=== PATIENT | female | born 1935 | race Caucasian/White ===

== ENCOUNTER → 2017-04-04 13:44 | Outpatient (POV) | payer MEDICARE, BC, SELFPAY | PROVIDERS: PCP Family Medicine | DX: Z00.00 Encounter for general adult medical examination without abnormal findings (principal) ==

== ENCOUNTER → 2017-12-06 14:03 | Outpatient (CLI) | payer MEDICARE, BC, SELFPAY ==
--- NOTE | 2017-12-06 14:14 | MR_ITS ---
MR shoulder RT wo con HISTORY: Acute pain in right shoulder with limited range of motion ORDERING PHYSICIAN: Madiha Apodaca PATIENT AGE: 82 years TECHNIQUE: Multiplanar multiecho sequences are performed without contrast. FINDINGS: There is mild acromioclavicular arthropathy with mild edema at the acromioclavicular joint with hypertrophic changes. The hypertrophic changes are mainly superior. There is mild thickening of the supraspinatus and infraspinatus tendons with slight increase in T2 signal consistent with tendinopathy/tendinosis. No evidence of rotator cuff tear. There is tendinopathy/tendinosis of the subscapularis tendon as well. Teres minor tendon is intact. No obvious labral tear. Subcortical edematous change involves the humeral head toward the base of the greater trochanter with mild cortical irregularity of the greater trochanter. Small shoulder joint effusion. The bicipital tendon is in place. No fracture or dislocation. IMPRESSION: 1. Tendinopathy/tendinosis of the supraspinatus and infraspinatus tendon. No evidence of rotator cuff tear. 2. Mild amount of marrow edema involving the humeral head subcortical irregularity of the greater tuberosity consistent with underlying degenerative changes. 3. Acromioclavicular arthropathy
== END ==
PROVIDERS: PCP Family Medicine; Visit Provider Family Medicine
DX: M25.511 Pain in right shoulder (principal)
CPT/HCPCS: 73221

== ENCOUNTER 2017-12-11 13:00 | Outpatient (RCR) | payer MEDICARE, BC, SELFPAY | END 2017-12-11 13:01 | disposition home or self-care (01) | LOC: OT 13:00 | PROVIDERS: PCP Family Medicine; Visit Provider Plastic Surgery Surgery of the Hand | DX: S52.501A Unspecified fracture of the lower end of right radius, initial encounter for closed fracture (principal) | CPT/HCPCS: 97110; 97140; 97164; 97165; 97530 ==

== ENCOUNTER 2017-12-25 13:00 | Outpatient (RCR) | payer MEDICARE, BC, SELFPAY | END 2017-12-25 13:05 | disposition home or self-care (01) | LOC: OT 13:00 | PROVIDERS: PCP Family Medicine; Visit Provider Family Medicine | DX: M25.511 Pain in right shoulder (principal); M81.0 Age-related osteoporosis without current pathological fracture | CPT/HCPCS: 97014; 97035; 97110; 97140; 97165; G0283 ==

== ENCOUNTER → 2018-03-20 15:38 | Outpatient (POV) | payer MEDICARE, BC, SELFPAY | DX: Z00.00 Encounter for general adult medical examination without abnormal findings (principal) ==

== ENCOUNTER → 2018-04-04 14:23 | Outpatient (CLI) | payer MEDICARE, BC, SELFPAY ==
--- NOTE | 2018-04-04 | CA_ITS ---
PROCEDURE: 2-D M-mode and color Doppler study INDICATIONS FOR THE TEST: Chest pain COPD Heart Murmur Tobacco Smoking Palpitations Fatigue Syncope Edema+ Hypertension+Diabetes Mellitus Rheumatic Fever SOB+CONTRERAS Obesity Hyperlipidemia Family History HD Additional History stents PATIENT INFORMATION HEIGHT: 66 WEIGHT:132 GENDER: Female B/P:145/95 2-D/M-MODE INTERPRETATION: 2-D MEASUREMENTS OBSERVED VALUES IN CMS Right Ventricular Dimension (RVDd) MINDY Interventricular Septum (Thickness)(IVsd) 1.2 Left Ventricular Internal Dimensions(LVIDd) 3.8 Left Ventricular Posterior Wall (Thickness)(LVPWd) 0.6 Aortic Root 2.4 Aortic Cusp Separation 1.9 Left Atrial Dimensions (LAD) 3.6 2D 1. Left atrium is mildly enlarged, left ventricle is normal size, mild concentric left ventricular hypertrophy, visually estimated ejection fraction 55% with no regional wall motion abnormality. 2. The right atrium is mildly enlarged, left ventricle is mildly dilated and contractility. 3. The aortic valve is thickened and calcified leaflet continue to display mobility. 4. The mitral valve has mitral calcification, leaflets are minimally thickened, there is mild systolic anterior motion of the mitral valve leaflets. 5. The tricuspid valve is grossly normal. 6. The pulmonic valve is poorly visualized. 7. No significant pericardial effusion noted. DOPPLER INTERROGATION: 1. There is late peaking aortic out flow velocity of 2.5 m/s seen in the left ventricular outflow tract, resulting in a peak instantaneous gradient of 25 mmHg, suggestive of dynamic obstruction. Morphologically there is no aortic stenosis. There is no aortic insufficiency present. 2. The mitral inflow velocities within normal range, there is no mitral stenosis, there is mild mitral regurgitation, grade 1 diastolic dysfunction seen without tissue Doppler evidence of raised left atrial pressure. 3. Mild tricuspid regurgitation seen. Calculated right ventricular systolic pressure is 52 mmHg consistent with moderate pulmonary hypertension.. CONCLUSION: 1. Mild biatrial enlargement, normal left ventricular size, mild concentric left ventricular hypertrophy, visually estimated ejection fraction 55% with no regional wall motion abnormality, grade 1 diastolic dysfunction seen without tissue Doppler evidence of raised left atrial pressure. 2. Late peaking increased velocity seen in the left ventricular outflow tract up to 0.5 m/s, resulting in a peak instantaneous gradient of 25 mmHg suggestive of dynamic left ventricular outflow track obs
== END ==
PROVIDERS: PCP Family Medicine; Visit Provider Family Medicine
DX: I25.10 Atherosclerotic heart disease of native coronary artery without angina pectoris (principal); R60.9 Edema, unspecified
CPT/HCPCS: 93306

== ENCOUNTER → 2018-05-01 15:28 | Outpatient (POV) | payer MEDICARE, BC, SELFPAY | DX: Z00.00 Encounter for general adult medical examination without abnormal findings (principal) ==

== ENCOUNTER 2018-05-17 07:44 | Day surgery (SDC) | payer MEDICARE, BC, SELFPAY ==
[2018-05-17] VITALS (12 sets, daily range): BP systolic 131–164; BP diastolic 65–96; PULSE 54–67; RESP 16–20; TEMP 37.1; O2SAT 96–97; BMI 24.1
[2018-05-17 08:26] LABS: Basophils % 0.6 % (0.1-2.0); Eosinophils # 0.2 K/mm3 (0.0-0.4); Eosinophils % 5.4 % (0.1-12.0); Hematocrit 39.2 % (37.0-47.0); Hemoglobin 12.8 g/dL (12.2-16.2); Lymphocytes # 0.8 K/mm3 (0.7-4.5); Lymphocytes % 26.6 % (10-50); Mean Corpuscular HGB Conc 32.8 g/dL (31.8-35.4); Mean Corpuscular Volume 100.7 fl (81-99); Mean Platelet Volume 7.9 fl (7.4-10.4); Monocytes # 0.3 K/mm3 (0.1-1.0); Monocytes % 9.3 % (1.7-9.3); Neutrophils # 1.8 K/mm3 (1.8-7.8); Neutrophils % 58.1 % (37.0-80.0); Platelet Count 171 K/mm3 (142-424); Red Blood Count 3.89 M/mm3 (4.20-5.40); Red Cell Distribution Width 13.3 % (11.5-17.5); White Blood Count 3.1 K/mm3 (4.8-10.8)
[2018-05-17 08:33] LABS: Blood Urea Nitrogen 18 mg/dL (7-18); Calcium 9.8 mg/dL (8.5-10.1); Carbon Dioxide 26 mmol/L (21.0-32.0); Chloride 106 mmol/L (98-107); Creatinine Clearance Estimated 47 mL/min (50-200); Creatinine,Serum 0.84 mg/dL (0.55-1.02); Estimated Glomerular Filt Rate 65 ml/min (>60); GFR (African American) 79 ML/MIN (>60); Glucose 94 mg/dL (74-106); Sodium 143 mmol/L (136-145)
--- NOTE | 2018-05-17 12:00 | IR_ITS ---
CARDIAC CATHETERIZATION DATE OF CATHETERIZATION:05/17/2018 10:32 AM PROCEDURES: 1. Left heart catheterization 2. Left ventriculogram 3. Selective coronary angiogram INDICATION FOR TEST: 1. Known coronary artery disease 2. Class III angina pectoris 3. Hyperdynamic ventricle with dynamic outflow obstruction Informed consent was obtained prior to the procedure. COMPLICATIONS: None ESTIMATED BLOOD LOSS: Less than 10 ml. TECHNIQUE: One percent lidocaine used to anesthetize the right anterior aspect of the wrist. The right radial artery was accessed via the Seldinger technique. A 6 Macedonian sheath was placed in the right radial artery. 2.5 mg of verapamil, 800 mcg of nitroglycerin, 1mg Lidocaine and 5000 U Heparin were given through the arterial sheath. The trap catheter was also used to perform left heart catheterization, left ventriculogram and selective coronary angiogram. At the end of the procedure the sheath was removed good hemostasis was achieved using Traclet band, patient was transferred to the postop holding area in stable condition . ANGIOGRAPHIC RESULTS: 1. The left main artery normal 2. The left anterior descending artery has a stent in the proximal segment which is widely patent free of in-stent restenosis with excellent proximal and distal transitioning. Distal to the stent is a 30% stenosis. The mid LAD then has a drug-eluting stent which has a 30-40% concentric in-stent restenotic lesion in the distal portion of the stent. Distal to the stent there is excellent transitioning into the tetlin LAD. The remaining LAD is tortuous widely patent with no significant stenosis greater than 10% 3. The circumflex artery is a nondominant vessel extremely tortuous giving multiple small branches with no focal stenosis greater than 10-20% 4. The right coronary artery is a dominant vessel very tortuous with no focal stenosis. 5. The WOOD ventriculogram reveals hyperdynamic ventricle estimated at 80% 6. The left ventricular end-diastolic pressure 20 to 25 mmHg IMPRESSION: 1. Widely patent proximal and mid LAD stents as described above with diffuse mild to moderate LAD disease none of which is producing angina 2. Very hyperdynamic ventricle with elevated LVEDP 3. No catheter-based aortic outflow or left ventricular outflow dynamic gradient appreciated on pullback PLAN: 1. Medical management. Patient will be started on high-dose beta blockers and verapamil to decrease hyperdynamic state 2. Judicious use of diuretics 3. Continue medical management for stable ischemic heart disease
== END 2018-05-17 13:41 | disposition home or self-care (01) ==
PROVIDERS: PCP Family Medicine; Visit Provider Internal Medicine
DX: I25.118 Atherosclerotic heart disease of native coronary artery with other forms of angina pectoris (principal); I42.1 Obstructive hypertrophic cardiomyopathy; I11.0 Hypertensive heart disease with heart failure; I50.30 Unspecified diastolic (congestive) heart failure; I34.0 Nonrheumatic mitral (valve) insufficiency; I27.20 Pulmonary hypertension, unspecified; Z95.5 Presence of coronary angioplasty implant and graft; E78.5 Hyperlipidemia, unspecified; Z82.49 Family history of ischemic heart disease and other diseases of the circulatory system; Z79.82 Long term (current) use of aspirin; Z79.899 Other long term (current) drug therapy; Z88.0 Allergy status to penicillin; Z88.2 Allergy status to sulfonamides; Z88.5 Allergy status to narcotic agent; Z88.8 Allergy status to other drugs, medicaments and biological substances
CPT/HCPCS: 80048; 85025; 93458; 99152; C1725; C1769; J1644; Q9967

== ENCOUNTER → 2018-05-22 14:39 | Outpatient (POV) | payer MEDICARE, BC, SELFPAY | DX: Z00.00 Encounter for general adult medical examination without abnormal findings (principal) ==

== ENCOUNTER → 2018-06-19 12:30 | Outpatient (POV) | payer MEDICARE, BC, SELFPAY | DX: Z00.00 Encounter for general adult medical examination without abnormal findings (principal) ==

== ENCOUNTER → 2018-07-17 13:56 | Outpatient (POV) | payer MEDICARE, BC, SELFPAY | DX: Z00.00 Encounter for general adult medical examination without abnormal findings (principal) ==

== ENCOUNTER → 2018-10-30 13:13 | Outpatient (POV) | payer MEDICARE, BC, SELFPAY | DX: Z00.00 Encounter for general adult medical examination without abnormal findings (principal) ==

== ENCOUNTER → 2019-01-15 13:15 | Outpatient (POV) | payer MEDICARE, BC, SELFPAY | DX: Z00.00 Encounter for general adult medical examination without abnormal findings (principal) ==

== ENCOUNTER → 2019-04-17 06:26 | Outpatient (CLI) | payer MEDICARE, BC, SELFPAY ==
--- NOTE | 2019-04-17 06:28 | NM_ITS ---
APPROVED REPORT Exam: Nuclear Stress Test Indication: chest pain..short of breath..palpitation..fatigue Patient Location: Outpatient Stress Tech: Ileana Kelechi NE Tech:Jerri BoudreauxHÉCTOR RT(R)(N) Ht: 5 ft 4 in Wt: 138 lbs Bra Size: 34c HR: 64 bpm BP: 201/79 mmHg BSA: 1.67 m2 BMI: 23.6 History: chest pain..short of breath..palpitation..fatigue Procedure: Patient received a 0.4 mg of intravenous Lexiscan, resting heart rate 64 bpm, resting blood pressure 201/79 mmHg, with Lexiscan maximum heart rate achived was 81 bpm which is % of the maximum predicted heart rate and blood pressure was 205/73 mmHg. With Lexiscan, patient denied any complaint of chest pain. Cardiac Stress and Resting SPECT Images: Cardiac Stress and Resting SPECT images were obtained using technetium 99m Myoview 32.9 mCi stress and 10.69 mCi at rest. EF 67% Small fixed defect anterior wall No reversible defects Conclusion: EF 67% Small fixed defect anterior wall suggesting a small area of infarction No reversible defects Electronically signed by : Izaiah Cuevas MD 04/18/2019 16:08:33
--- NOTE | 2019-04-17 06:28 | CA_ITS ---
APPROVED REPORT Exam: Pharmacologic Technologist: ROOSEVELT MANCUSO, Ht: 5 ft 4 in Wt: 138 lbs BSA: 1.67 m2 HR: 64 bpm BP: 201/79 mmHg Indications: CP, SOA Medical History Medications: Metoprolol,,,,, Asa,,,,, Atorvastatin,,,,, Lasix,,,,, Famotidine,,,,, Preservision,,,,, Cardiac Risk Factors: HTN, Hyperlipidemia, FHX of CAD Stress Test Details Test: LEXISCAN HR Resting HR: 65 bpm Max Heart Rate (APMHR): 139 bpm Max HR Achieved: 85 bpm Target HR (85% APMHR): 118 bpm % of APMHR: 61 Recovery HR: 74 bpm BP Resting BP: 201/79 mmHg Max BP: 205/73 mmHg Recovery BP: 176.0/73.0 mmHg ECG Clinical Reason for Termination: Completed protocol Exercise duration: 04:01 min Highest Stage Achieved: Exercise capacity: 1.0 METs Stress ECG Conclusion Symptoms - Lightheaded, malaise, mild stomach discomfort. No chest pain. Ocassional PAC. No significant ST-T changes. Conclusion - Unremarkable Lexiscan stress. Myoview images reported separately. Test Summary RECOVERY 03:00 . . 75 . 168/ 74 . . REST 09:40 . . 65 . 201/ 79 . . Stage 1 01:00 . . 75 . . . . Stage 2 01:00 . . 84 . 205/ 73 . . Stage 3 01:00 . . 81 . 165/ 69 . . Stage 4 01:00 . . 76 . 170/ 75 . . Stage 4 01:01 . . 76 . 170/ 75 . Stop exercise at 04:01 RECOVERY 01:00 . . 75 . 167/ 74 . . RECOVERY 02:00 . . 77 . 167/ 74 . . RECOVERY 03:00 . . 75 . 168/ 74 . . RECOVERY 04:00 . . 73 . 176/ 73 . . RECOVERY 04:16 . . 71 . 176/ 73 . . Electronically signed by : Ankur Bateman, 04/17/2019 12:02:41
--- NOTE | 2019-04-17 07:11 | CA_ITS ---
APPROVED REPORT Branch Employment Coordinator: Yulissa Sarmiento RVT Laterality: Bilateral Study Quality: Good Indications: carotid bruit Risk Factors Hypertension: Hyperlipidemia Doppler Spectral Velocity Analysis ECA (R) 56.80/7.20 cm/s ECA (L) 59.70/6.10 cm/s dICA (R) 75.10/18.80 cm/s dICA (L) 85.70/22.20 cm/s Yoselyn (R) 86.00/18.00 cm/s Yoselyn (L) 50.50/14.50 cm/s pICA (R) 46.00/10.60 cm/s pICA (L) 32.10/9.20 cm/s dCCA (R) 68.10/12.40 cm/s dCCA (L) 65.30/10.30 cm/s pCCA (R) 109.00/11.50 cm/s pCCA (L) 72.20/15.00 cm/s Vert (R) 55.20/13.10 cm/s Vert (L) 38.30/8.40 cm/s ICA/CCA 1.26 ICA/CCA 1.31 Conclusion Study suggests less than 20% stenosis of the right internal cartoid artery. Study suggests 20-49% stenosis of the left internal cartoid artery. Antegrade flow seen bilateral vertebral arteries. Electronically signed by : Izaiah Cuevas MD 04/17/2019 16:55:44
[2019-04-17 07:22] LABS: Chloride 105 mmol/L (98-107); Potassium 4.3 mmoL/L (3.5-5.1); Sodium 139 mmol/L (136-145)
[2019-04-17 07:25] LABS: Anion Gap 11.3 mEq/L (5-15); Blood Urea Nitrogen 13 mg/dl (7-17); Calcium 9.7 mg/dl (8.4-10.2); Carbon Dioxide 27 mmol/L (22.0-30.0); Estimated Glomerular Filt Rate 80 ml/min (>60); GFR (African American) 97 ML/MIN (>60); Glucose 90 mg/dl (74-100)
--- NOTE | 2019-04-17 09:22 | HMH.ITSHM ---
Current Home Medications as stated by this patient Jenelle Mathur or represenasa metoprlol atorvastain famotidine lasix
== END ==
PROVIDERS: PCP Family Medicine; Visit Provider Nurse Practitioner Family
DX: E78.5 Hyperlipidemia, unspecified (principal); I11.9 Hypertensive heart disease without heart failure; I25.10 Atherosclerotic heart disease of native coronary artery without angina pectoris; I27.20 Pulmonary hypertension, unspecified; R53.83 Other fatigue; R60.9 Edema, unspecified; R09.89 Other specified symptoms and signs involving the circulatory and respiratory systems
CPT/HCPCS: 36415; 78452; 80048; 93017; 93306; 93880; A9502; J2785

== ENCOUNTER → 2019-08-13 12:47 | Outpatient (POV) | payer MEDICARE, BC, SELFPAY | DX: Z00.00 Encounter for general adult medical examination without abnormal findings (principal) ==

== ENCOUNTER → 2019-11-18 08:52 | Outpatient (POV) | payer MEDICARE, BC, SELFPAY | PROVIDERS: Visit Provider Dermatology | DX: Z00.00 Encounter for general adult medical examination without abnormal findings (principal) ==

== ENCOUNTER → 2019-12-17 15:34 | Outpatient (POV) | payer MEDICARE, BC, SELFPAY | DX: Z00.00 Encounter for general adult medical examination without abnormal findings (principal) ==

== ENCOUNTER → 2020-04-30 13:15 | Outpatient (CLI) | payer MEDICARE, BC, SELFPAY ==
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
== END ==
PROVIDERS: PCP Family Medicine; Visit Provider Urology
DX: I65.23 Occlusion and stenosis of bilateral carotid arteries (principal)
CPT/HCPCS: 93880

== ENCOUNTER → 2020-06-22 10:11 | Outpatient (POV) | payer MEDICARE, BC, SELFPAY | PROVIDERS: Visit Provider Dermatology | DX: Z00.00 Encounter for general adult medical examination without abnormal findings (principal) ==

== ENCOUNTER 2020-07-25 19:52 | Emergency (ER) | payer MEDICARE, BC, SELFPAY ==
[2020-07-25] VITALS (9 sets, daily range): BP systolic 175–219; BP diastolic 72–112; PULSE 59–78; RESP 17–18; TEMP 36.7–36.9; O2SAT 97–100; BMI 27.8
--- NOTE | 2020-07-25 20:02 | PC.NURSE ---
Trauma alert called.
--- NOTE | 2020-07-25 20:03 | PC.NURSE ---
FSBS 95
--- NOTE | 2020-07-25 20:05 | PC.NURSE ---
Trauma Alert cancelled.
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
[2020-07-25 20:38] LABS: Basophils % 0.6 % (0.1-2.0); Eosinophils # 0.3 K/mm3 (0.0-0.4); Eosinophils % 5.2 % (0.1-12.0); Hematocrit 36.6 % (37.0-47.0); Hemoglobin 11.3 g/dL (12.2-16.2); Lymphocytes # 1.3 K/mm3 (0.7-4.5); Lymphocytes % 25.6 % (10-50); Mean Corpuscular Hemoglobin 32.7 pg (27.0-31.2); Mean Corpuscular Volume 105.6 fl (81-99); Mean Platelet Volume 7.9 fl (7.4-10.4); Monocytes # 0.4 K/mm3 (0.1-1.0); Monocytes % 7.6 % (1.7-9.3); Neutrophils % 61.1 % (37.0-80.0); Platelet Count 217 K/mm3 (142-424); Red Blood Count 3.46 M/mm3 (4.20-5.40)
[2020-07-25 20:42] LABS: Alanine Aminotransferase 15 U/L (12-78); Albumin Level 4.4 g/dl (3.5-5.0); Albumin/Globulin Ratio 1.9 (1.1-1.8); Alkaline Phosphatase 92 U/L (38-126); Anion Gap 13.3 mEq/L (5-15); Aspartate Amino Transferase 29 U/L (14-36); Bilirubin,Total 0.4 mg/dl (0.2-1.3); Blood Urea Nitrogen 20 mg/dl (7-17); Calcium 9.7 mg/dl (8.4-10.2); Carbon Dioxide 24 mmol/L (22.0-30.0); Chloride 104 mmol/L (98-107); Creatinine Clearance Estimated 54 mL/min (50-200); Estimated Glomerular Filt Rate 60 ml/min (>60); GFR (African American) 72 ML/MIN (>60); Globulin 2.3 g/dL (1.3-3.2); Glucose 101 mg/dl (74-100); Potassium 4.3 mmoL/L (3.5-5.1); Sodium 137 mmol/L (136-145); Total Protein,Serum 6.7 g/dl (6.3-8.2)
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
--- NOTE | 2020-07-25 21:26 | PC.NURSE ---
pt's 18g RAC IV infiltrated. 2x more attempts made for IV replacement unsuccessfully.
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
[2020-07-26 07:31] LABS: POC Glucose,Bedside 95 (70-110)
== END 2020-07-25 23:58 | disposition home or self-care (01) ==
PROVIDERS: Emergency Provider Emergency Medicine; PCP Family Medicine
DX: S20.213A Contusion of bilateral front wall of thorax, initial encounter (principal); W23.1XXA Caught, crushed, jammed, or pinched between stationary objects, initial encounter; Y92.017 Garden or yard in single-family (private) house as the place of occurrence of the external cause; I25.10 Atherosclerotic heart disease of native coronary artery without angina pectoris; K21.9 Gastro-esophageal reflux disease without esophagitis; I10 Essential (primary) hypertension; E78.5 Hyperlipidemia, unspecified
CPT/HCPCS: 70450; 71045; 71250; 72125; 72170; 80053; 82962; 85025; 96372; 99281

== ENCOUNTER → 2020-11-04 11:54 | Outpatient (CLI) | payer MEDICARE, BC, SELFPAY ==
--- NOTE | 2020-11-04 11:54 | NM_ITS ---
APPROVED REPORT Exam: Nuclear Stress Test Indication: Chest pain, SOB, Palpitations, Fatigue, HTN, CAD, High cholesterol, Family history Patient Location: Outpatient Stress Tech: Pooja Smith [place] Tech:HÉCTOR Siegel RT(R)(N) Ht: 5 ft 5 in Wt: 134 lbs Bra Size: B HR: 58 bpm BP: 198/85 mmHg BSA: 1.67 m2 BMI: 22.2 History: Chest pain, SOB, Palpitations, Fatigue, HTN, CAD, High cholesterol, Family history Procedure: Patient received a 0.4 mg of intravenous Lexiscan, resting heart rate 58 bpm, resting blood pressure 198/85 mmHg, with Lexiscan maximum heart rate achived was 60 bpm which is Less than 85 % of the maximum predicted heart rate and blood pressure was 206/84 mmHg. With Lexiscan, patient denied any complaint of chest pain. Electrocardiogram Resting electrocardiogram showed sinus rhythm, with Lexiscan there is less than 1.[address] segment depression noted from the baseline EKG. The EKG portion of the Lexiscan is nondiagnostic. Cardiac Stress and Resting SPECT Images: Cardiac Stress and Resting SPECT images were obtained using technetium 99m Myoview 30.5 mCi stress and 10.75 mCi at rest. Gated SPECT for analysis of segmental wall motion and calculation of the ejection fraction also done. Prone images were also obtained. Cardiac stress and resting SPECT images show uniform myocardial activity without segmental perfusion abnormality, computer derived ejection fraction is 68% with no regional wall motion abnormality, right ventricle is normal size and contractility. Conclusion: 1. The EKG portion of the Lexiscan is nondiagnostic. 2. No scintigraphic evidence of reversible ischemia seen, computer derived ejection fraction is 68% with no regional wall motion abnormality, right ventricle is normal size and contractility. 3. Normal Lexiscan Myoview study. Electronically signed by : Matt Alarcon MD 11/04/2020 16:32:42
--- NOTE | 2020-11-04 12:36 | CA_ITS ---
APPROVED REPORT EXAM: Comprehensive 2D, Doppler, and color-flow Echocardiogram Ticket Worker: Kat Palacio, RCS, RVS Ht: 5 ft 4 in Wt: 132lbs BSA: 1.64 BP: 157/59 mmHg Indications: CP, SOA, HTN, Murmurs, PHTN, TR, PI, AI 2D Dimensions IVSd 0.91 cm LVEF (Visual) 52.50 % PWd 0.92 cm LA Volume 57.60 mL LVDd 3.89 cm LA Volume Index 35.10 mL/m2 (M/F) 16-34 LVDs 2.86 cm Aortic Root 1.18 cm Left Atrium 4.21 cm LVOT 1.90 cm (M/F) 1.5-2.5 M-Mode Dimensions LA Diam 4.61 cm (1.9-4.0) Ao Diam 3.42 cm (2.0-3.7) TAPSE 2.52 (<1.7) LV Diastology E Decel Time 330.00 (160-240 msec) E/A Ratio 0.63 MED E' 4.70 (< 7 cm/sec) MED A' 10.60 cm/s E'/MED E' Ratio 13.96 (>14) LAT E' 4.90 (<10 cm/sec) LAT A' 8.90 cm/s E/LAT E' Ratio 13.39 (>14) Aortic Valve LVOT Max 142.00 (70-110 cm/s) LVOT VTI 39.69 cm AoV Peak Marcel. 145.00 (50-130 cm/s) AI PHT 593.00 ms AO Peak GR. 8.40 mmHg AO Mean GR. 4.20 (<5 mmHg) AO VTI 37.44 (18-25 cm) NELLA (VTI) 3.01 (2.5-4.5 cm2) Mitral Valve MV A Velocity 105.00 (40-130 cm/s) E/A Ratio 0.63 MV Decel. Time 330.00 (160-240 ms) MV Mean Gr. 1.50 (<2mmHg) Pulmonary Valve KY End VMAX 213.00 cm/s Tricuspid Valve TR P. Velocity 309.00 cm/s RAP Estimate 10.00 mmHg RVSP 48.20 mmHg Left Ventricle Left atrium is mildly enlarged, left ventricle is normal size, mild concentric left ventricular hypertrophy, visually estimated ejection fraction 55% with no regional wall motion abnormality, grade 1 diastolic dysfunction seen without tissue Doppler evidence of raise left atrial pressure. Right Ventricle Right atrium and right ventricle are mildly enlarged with normal contractility. Aortic Valve Aortic valve is minimally thickened and fibrosed, there is no aortic stenosis, there is mild aortic insufficiency. Mitral Valve Mitral valve leaflets are minimally thickened, there is mild mitral regurgitation. Tricuspid Valve Tricuspid valve grossly normal, there is moderate tricuspid regurgitation, calculated right ventricular systolic pressure is 49 mmHg. Pulmonic Valve Pulmonic valve is minimally fibrosed, there is no pulmonic stenosis, there is mild pulmonic insufficiency. Great Vessels Aortic root is normal size. Inferior vena cava is normal size with normal inspiratory collapse. Pericardium No significant pericardial effusion noted. Conclusion 1. Mild biatrial enlargement, normal left ventricular size, mild concentric left ventricular hypertrophy, visually estimated ejection fraction 55% with no regional wall motion abnormality, grade 1 diastolic dysfunction seen without tissue Doppler evidence of raise left atrial pressure. 2. Mildly enlarged right ventricle with normal contractility. 3. Mild pulmonic, aortic, mitral and moderate tricuspid regurgitation. Calculated right ventricular systolic pressure is 49 mmHg. 4. No significant pericardial effusion noted. 5. Inferior vena cava is normal size with normal inspiratory collapse. Electronically signed by : Matt Alarcon MD 11/04/2020 16:40:42
--- NOTE | 2020-11-04 14:33 | CA_ITS ---
APPROVED REPORT Exam: Pharmacologic Technologist: Shira Farrell, Ht: 5 ft 4 in Wt: 132 lbs BSA: 1.64 m2 HR: 58 bpm BP: 198/85 mmHg Medical History Medications: Levothyroxine,,,,, Aspirin,,,,, Ferrous sulfate,,,,, Losartan,,,,, Lasix,,,,, Lipitor,,,,, Meclizine,,,,, PEPcid,,,,, Toprol XL,,,,, CyclobenAPRINE,,,,, Stress Test Details Test: LEXISCAN HR Resting HR: 58 bpm Max Heart Rate (APMHR): 137.172698 bpm Max HR Achieved: 65 bpm Target HR (85% APMHR): 116.976776 bpm % of APMHR: 47.45 Recovery HR: 55 bpm BP Resting BP: 198/85 mmHg Max BP: 206/84 mmHg Recovery BP: 200.0/80.0 mmHg ECG Resting ECG: Sinus bradycardia, diffuse non-diagnostic Q waves Clinical Exercise duration: 04:00 min Highest Stage Achieved: Stress ECG Conclusion Did not take her Losartan 100mg this AM. After consulting with Cardiology office--Irbesartan 75mg PO given post test. She will monitor her BP once she gets home and if it doesn't start to come down, return to ER. Symptoms: Mild SOA, Mild BARTH, No CP. Arrhythmias/Ectopy: Occ PVC. ST-T Changes: No significant changes. Conclusion: Unremarkable Lexiscan stress. Myoview images reported separately. High BP. Electronically signed by : Matt Alarcon MD 11/04/2020 16:30:14
== END ==
PROVIDERS: PCP Family Medicine; Visit Provider Nurse Practitioner Family
DX: I20.9 Angina pectoris, unspecified (principal); R06.00 Dyspnea, unspecified
CPT/HCPCS: 78452; 93017; 93306; A9502; J2785

== ENCOUNTER → 2020-11-17 13:31 | Outpatient (CLI) | payer MEDICARE, BC, SELFPAY ==
[2020-11-17 15:00] LABS: Anion Gap 9.9 mEq/L (5-15); Blood Urea Nitrogen 17 mg/dl (7-17); Calcium 9.7 mg/dl (8.4-10.2); Carbon Dioxide 27 mmol/L (22.0-30.0); Chloride 104 mmol/L (98-107); Estimated Glomerular Filt Rate 60 ml/min (>60); GFR (African American) 72 ML/MIN (>60); Glucose 97 mg/dl (74-100); Potassium 4.9 mmoL/L (3.5-5.1); Sodium 136 mmol/L (136-145)
[2020-11-17 15:43] LABS: Basophils % 0.4 % (0.1-2.0); Eosinophils # 0.2 K/mm3 (0.0-0.4); Eosinophils % 3.6 % (0.1-12.0); Hematocrit 34.5 % (37.0-47.0); Hemoglobin 10.5 g/dL (12.2-16.2); Lymphocytes # 1.2 K/mm3 (0.7-4.5); Lymphocytes % 23.3 % (10-50); Mean Corpuscular HGB Conc 30.5 g/dL (31.8-35.4); Mean Corpuscular Hemoglobin 34.9 pg (27.0-31.2); Mean Corpuscular Volume 114.4 fl (81-99); Mean Platelet Volume 9.1 fl (7.4-10.4); Monocytes # 0.4 K/mm3 (0.1-1.0); Monocytes % 8.7 % (1.7-9.3); Neutrophils # 3.2 K/mm3 (1.8-7.8); Neutrophils % 63.9 % (37.0-80.0); Platelet Count 272 K/mm3 (142-424); Red Blood Count 3.02 M/mm3 (4.20-5.40); Red Cell Distribution Width 15.4 % (11.5-17.5); White Blood Count 4.9 K/mm3 (4.8-10.8)
== END ==
PROVIDERS: Visit Provider Urology
DX: I11.9 Hypertensive heart disease without heart failure (principal); I20.9 Angina pectoris, unspecified; I27.20 Pulmonary hypertension, unspecified; I35.1 Nonrheumatic aortic (valve) insufficiency; R06.00 Dyspnea, unspecified; R09.89 Other specified symptoms and signs involving the circulatory and respiratory systems; R53.83 Other fatigue; R07.89 Other chest pain; Z01.812 Encounter for preprocedural laboratory examination; Z11.52 Encounter for screening for COVID-19
CPT/HCPCS: 36415; 80048; 85025; C9803; U0003; U0005

== ENCOUNTER 2020-11-18 11:08 | Day surgery (SDC) | payer MEDICARE, BC, SELFPAY ==
[2020-11-18] VITALS (10 sets, daily range): BP systolic 107–169; BP diastolic 48–77; PULSE 56–98; RESP 18; O2SAT 96–99; BMI 22.3
--- NOTE | 2020-11-18 | IR_ITS ---
APPROVED REPORT Patient Location: Outpatient PROCEDURES Left heart catheterization Left ventriculogram Selective coronary angiogram INDICATION Known coronary artery disease, Recalcitrant angina pectoris, Informed consent was obtained prior to the procedure. COMPLICATIONS NONE Estimated Blood Loss: LESS THAN 10 ML TECHNIQUE One percent lidocaine used to anesthetize the right anterior aspect of the wrist. The right radial artery was accessed via the Seldinger technique. A 6 German sheath was placed in the right radial artery. 2.5 mg of verapamil, 800 mcg of nitroglycerin, 1mg Lidocaine and 5000 U Heparin were given through the arterial sheath. The Poppa catheter was also used to perform left heart catheterization, left ventriculogram and selective coronary angiogram. At the end of the procedure the sheath was removed good hemostasis was achieved using Traclet band, patient was transferred to the postop holding area in stable condition. ANGIOGRAPHIC RESULTS The left main artery Normal The left anterior descending artery Has a stent in the proximal segment which is widely patent free of in-stent restenosis with excellent proximal distal transitioning. An additional mid vessel stent has mid vessel 40% concentric in-stent restenosis The circumflex artery Is nondominant tortuous with mild 10% luminal irregularities The right coronary artery Is dominant torture with with mild 10% mid vessel luminal irregularity The WOOD ventriculogram reveals Normal to slightly hyperdynamic at 70% The left ventricular end-diastolic pressure 15 mmHg IMPRESSION Widely patent coronaries as described above Slightly hyperdynamic ventricle Borderline elevated LVEDP PLAN 1. Medical management Electronically signed by : Ankur Bateman MD 11/18/2020 14:42:08
== END 2020-11-18 16:39 | disposition home or self-care (01) ==
LOC: CATHLAB 11:10
PROVIDERS: PCP Family Medicine; Visit Provider Internal Medicine
DX: R07.9 Chest pain, unspecified (principal); I25.118 Atherosclerotic heart disease of native coronary artery with other forms of angina pectoris; I50.32 Chronic diastolic (congestive) heart failure; I11.0 Hypertensive heart disease with heart failure; I27.20 Pulmonary hypertension, unspecified; I65.23 Occlusion and stenosis of bilateral carotid arteries; Z79.899 Other long term (current) drug therapy
CPT/HCPCS: 93458; 99152; C1769; J1644; Q9967

== ENCOUNTER → 2021-02-28 10:32 | Outpatient (CLI) | payer MEDICARE, BC, SELFPAY ==
--- NOTE | 2021-02-28 10:33 | CA_ITS ---
FINAL REPORT CLINICAL HISTORY: BRUNILDA, HTN, HLD, CAD FINDINGS: An ultrasound of the carotid arteries was performed. Duplex Doppler evaluation with spectral analysis was performed. The peak systolic velocity of the right common carotid artery is 120 cm/s. The peak systolic velocity of the right internal carotid artery is 96 cm/s and end diastolic velocity 25 cm/s. A small amount of plaque is present. The right external carotid artery is patent. The right vertebral artery is patent with antegrade flow. The peak systolic velocity of the left common carotid artery is 72 cm/s. The peak systolic velocity of the left internal carotid artery is 115 cm/s and end diastolic velocity 20 cm/s. A small amount of plaque is present. The left external carotid artery is patent. The left vertebral artery is patent with antegrade flow. IMPRESSION: LESS THAN 20% RIGHT CAROTID STENOSIS. 20-49% LEFT CAROTID STENOSIS.. Reviewed, Interpreted and Dictated by Timothy Downing MD Transcribed by Cody Correia Authenticated by Timothy Downing MD on 02/28/2021 04:23:37 PM [facility]
== END ==
PROVIDERS: PCP Family Medicine; Visit Provider Urology
DX: I65.23 Occlusion and stenosis of bilateral carotid arteries (principal)
CPT/HCPCS: 93880

== ENCOUNTER → 2021-07-25 08:48 | Outpatient (CLI) | payer MEDICARE, BC, SELFPAY ==
[2021-07-25 10:14] LABS: Chloride 104 mmol/L (98-107); Sodium 136 mmol/L (136-145)
[2021-07-25 10:15] LABS: Potassium 4.6 mmoL/L (3.5-5.1)
[2021-07-25 10:18] LABS: Anion Gap 10.6 mEq/L (5-15); Blood Urea Nitrogen 17 mg/dl (7-17); Calcium 9.6 mg/dl (8.4-10.2); Carbon Dioxide 26 mmol/L (22.0-30.0); Estimated Glomerular Filt Rate 53 ml/min (>60); GFR (African American) 64 ML/MIN (>60); Glucose 102 mg/dl (74-100)
== END ==
PROVIDERS: PCP Family Medicine; Visit Provider Physician Assistant
DX: I11.9 Hypertensive heart disease without heart failure (principal); I25.10 Atherosclerotic heart disease of native coronary artery without angina pectoris; I27.20 Pulmonary hypertension, unspecified; I35.1 Nonrheumatic aortic (valve) insufficiency; R06.00 Dyspnea, unspecified; R09.89 Other specified symptoms and signs involving the circulatory and respiratory systems; R60.9 Edema, unspecified
CPT/HCPCS: 36415; 80048

== ENCOUNTER → 2021-10-12 11:00 | Outpatient (CLI) | payer MEDICARE, BC, SELFPAY ==
--- NOTE | 2021-10-12 11:05 | NM_ITS ---
APPROVED REPORT Exam: Nuclear Stress Test Indication: CAD, 2 STENTS, HTN, HYPDERLIPIDEMIA, ANGINA, C.P., SOB, SYNCOPE Patient Location: Outpatient Stress Tech: Shira Farrell [place] Tech:Maddie Barr, ARRT RT (R)(N)(M) Ht: 5 ft 4 in Wt: 124 lbs Bra Size: B HR: 60 bpm BP: 194/84 mmHg BSA: 1.60 m2 TID: 1.09 BMI: 21.2 History: CAD, 2 STENTS, HTN, HYPDERLIPIDEMIA, ANGINA, C.P., SOB, SYNCOPE Procedure: Patient received a 0.4 mg of intravenous Lexiscan, resting heart rate 60 bpm, resting blood pressure 194/84 mmHg, with Lexiscan maximum heart rate achived was 78 bpm which is Less than 85 % of the maximum predicted heart rate and blood pressure was 148/65 mmHg. With Lexiscan, patient denied any complaint of chest pain. Electrocardiogram Resting electrocardiogram shows sinus rhythm anteroseptal infarct age-indeterminate, with Lexiscan there is less than 1.[address] segment depression noted from the baseline EKG. The EKG portion of the Lexiscan is nondiagnostic. Cardiac Stress and Resting SPECT Images: Cardiac Stress and Resting SPECT images were obtained using technetium 99m Myoview 31.9 mCi stress and 10.60 mCi at rest. Gated SPECT analysis of segmental wall motion and calculation of the ejection fraction also done. Cardiac stress and rest SPECT images show reversible ischemia involving the anteroseptal wall, computer derived ejection fraction is 59% with no regional wall motion abnormality, right ventricle is normal size and contractility. Conclusion: 1. The EKG portion of the Lexiscan is nondiagnostic. 2. Scintigraphic evidence of reversible ischemia involving the anteroseptal wall, computer derived ejection fraction 59% with no regional wall motion abnormality, right ventricle is normal size and contractility. 3. Abnormal Lexiscan Myoview study. Electronically signed by : Matt Alarcon MD 10/13/2021 11:07:41
--- NOTE | 2021-10-12 13:42 | CA_ITS ---
APPROVED REPORT Exam: Pharmacologic Technologist: Shira Treviño, Ht: 5 ft 4 in Wt: 126 lbs BSA: 1.61 m2 HR: 60 bpm BP: 194/84 mmHg Indications: CP Medical History Medications: Levothyroxine,,,,, Aspirin,,,,, Iron,,,,, Lasix,,,,, Tylenol,,,,, Meclizine,,,,, SpirOnolactone,,,,, PEPcid,,,,, Toprol XL,,,,, Stress Test Details Test: LEXISCAN Reason for pharmacologic stress test: physical limitation. HR Resting HR: 62 bpm Max Heart Rate (APMHR): 136.992333 bpm Max HR Achieved: 80 bpm Target HR (85% APMHR): 115.814994 bpm % of APMHR: 58.82 Recovery HR: 69 bpm BP Resting BP: 194/84 mmHg Max BP: 194/84 mmHg Recovery BP: 167.0/67.0 mmHg ECG Resting ECG: NSR, PACs, cannot R/O old septal WI Clinical Exercise duration: 04:00 min Highest Stage Achieved: Stress ECG Conclusion BP 200/74 supine after stress imaging taken to ER. Symptoms: Mild SOA. Head discomfort/lightheaded. No CP. Arrhythmias/Ectopy: moderately freq PACs, occ PVC. ST-T Changes: No significant changes. Conclusion: Unremarkable Lexiscan stress. Myoview images reported separately. Test Summary REST . . . . . . . Resting REST 09:41 . . 62 . 194/ 84 . . Stage 1 01:00 . . 70 . . . . Stage 2 01:00 . . 77 . . . . Stage 3 01:00 . . 77 . 148/ 65 . . Stage 4 01:00 . . 76 . 156/ 70 . Stop exercise at 04:00 RECOVERY 01:00 . . 72 . . . . RECOVERY 02:00 . . 70 . 160/ 72 . . RECOVERY 03:00 . . 74 . 163/ 70 . . RECOVERY 04:00 . . 66 . 163/ 70 . . RECOVERY 05:00 . . 69 . 163/ 70 . . RECOVERY 05:18 . . 68 . 167/ 67 . . Electronically signed by : Matt Alarcon MD 10/13/2021 11:04:16
== END ==
PROVIDERS: PCP Family Medicine; Visit Provider Nurse Practitioner Family
DX: E78.2 Mixed hyperlipidemia (principal); I11.0 Hypertensive heart disease with heart failure; I25.118 Atherosclerotic heart disease of native coronary artery with other forms of angina pectoris; I27.20 Pulmonary hypertension, unspecified; I35.1 Nonrheumatic aortic (valve) insufficiency; I50.32 Chronic diastolic (congestive) heart failure; I65.23 Occlusion and stenosis of bilateral carotid arteries; R06.09 Other forms of dyspnea; R09.89 Other specified symptoms and signs involving the circulatory and respiratory systems
CPT/HCPCS: 78452; 93017; A9502; J2785

== ENCOUNTER 2021-10-12 14:44 | Observation (INO) | payer MEDICARE, BC, SELFPAY ==
[2021-10-12] VITALS (17 sets, daily range): BP systolic 161–232; BP diastolic 68–118; PULSE 48–102; RESP 17–18; TEMP 36.6–36.8; O2SAT 96–99; BMI 21.2; BMI 20.9
--- NOTE | 2021-10-12 15:07 | XR_ITS ---
FINAL REPORT CLINICAL HISTORY: WEAKNESS, DIZZINESS COMPARISON: July 25, 2020 FINDINGS: A single portable view of the chest was obtained. There is cardiomegaly. The mediastinum is within normal limits. No acute pulmonary abnormality is identified. There is mild pulmonary scarring. The bony thorax is intact. IMPRESSION: No acute cardiopulmonary process. Reviewed, Interpreted and Dictated by Alan Soares III, MD Transcribed by Chula Mello Authenticated and . [facility]
--- NOTE | 2021-10-12 15:16 | ECG_ITS ---
APPROVED REPORT Exam: Resting ECG HR:63 bpm ECG Measurements Heart Rate 63 AXES CA 174 P 60 QRSd 86 QRS 22 QT 433 T 67 QTc 439 Conclusion SINUS RHYTHM WITH MARKED SINUS ARRHYTHMIA BORDERLINE ECG UNCONFIRMED REPORT Electronically signed by : Virgil Alcocer MD 10/13/2021 14:46:55
[2021-10-12 15:20] LABS: Basophils % 0.7 % (0.1-2.0); Eosinophils # 0.1 K/mm3 (0.0-0.4); Hematocrit 40.7 % (37.0-47.0); Hemoglobin 12.1 g/dL (12.2-16.2); Lymphocytes # 1.1 K/mm3 (0.7-4.5); Lymphocytes % 23.5 % (10-50); Mean Corpuscular HGB Conc 29.8 g/dL (31.8-35.4); Mean Corpuscular Hemoglobin 32.8 pg (27.0-31.2); Mean Corpuscular Volume 110.1 fl (81-99); Mean Platelet Volume 8.4 fl (7.4-10.4); Monocytes # 0.4 K/mm3 (0.1-1.0); Neutrophils % 65.8 % (37.0-80.0); Platelet Count 262 K/mm3 (142-424); Red Blood Count 3.69 M/mm3 (4.20-5.40); White Blood Count 4.6 K/mm3 (4.8-10.8)
[2021-10-12 15:27] LABS: Anion Gap 10.5 mEq/L (5-15); Blood Urea Nitrogen 17 mg/dl (7-17); Calcium 9.5 mg/dl (8.4-10.2); Carbon Dioxide 24 mmol/L (22.0-30.0); Chloride 104 mmol/L (98-107); Creatinine Clearance Estimated 37 mL/min (50-200); Estimated Glomerular Filt Rate 60 ml/min (>60); GFR (African American) 72 ML/MIN (>60); Glucose 84 mg/dl (74-100); Potassium 4.5 mmoL/L (3.5-5.1); Sodium 134 mmol/L (136-145)
[2021-10-12 15:42] LABS: Troponin I < 0.01 ng/ml (0.00-0.034)
--- NOTE | 2021-10-12 15:51 | CT_ITS ---
FINAL REPORT CLINICAL HISTORY: dizzy, elevated blood pressure COMPARISON: July 25, 2020 FINDINGS: Axial images of the head were obtained without contrast. Coronal reformatted images were also obtained. This study was performed with techniques to keep radiation doses as low as reasonably achievable (ALARA). Individualized dose reduction techniques using automated exposure control or adjustment of mA and/or kV according to the patient's size were employed. There is generalized age-appropriate atrophy. Periventricular low-attenuation areas are seen consistent with moderate chronic ischemic changes. There is no evidence of intracranial hemorrhage or mass. There is no evidence of acute infarct. There is no evidence of shift of the midline structures. A small lytic focus in the left frontal skull is stable. IMPRESSION: Atrophy and moderate periventricular chronic ischemic changes. No acute intracranial abnormality identified. Reviewed, Interpreted and Dictated by Alan Soares III, MD Transcribed by Cody Correia Authenticated and [facility]
--- NOTE | 2021-10-12 15:53 | HMH.EDGENADL ---
Discharge Plan Disposition Patient Disposition: Admitted as Observation Condition: Fair Prescriptions Prescriptions: No Action ferrous sulfate 325 mg (65 mg iron) tablet,delayed release 325 mg (65 mg iron) tablet,delayed release (DR/EC) 325 mg PO DAILY aspirin [Adult Low Dose Aspirin] 81 mg tablet,delayed release (DR/EC) 81 mg PO DAILY meclizine 25 mg tablet 25 mg PO DAILY PRN (Reason: Dizziness) acetaminophen [Tylenol] 325 mg tablet 325 mg PO Q6H PRN (Reason: pain) famotidine [Pepcid] 20 mg tablet 20 mg PO DAILY PRN (Reason: Acid Reflux) levothyroxine 25 mcg tablet 25 mcg PO DAILY spironolactone 25 mg tablet 25 mg PO DAILY ranolazine [Ranexa] 500 mg tablet extended release 12 hr 500 mg PO Q12H Qty: 60 2RF Rx Instructions: do not break, crush, or chew tablet(s) latanoprost 0.005 % drops 1 drp OPHTHALMIC DAILY furosemide [Lasix] 20 mg tablet 20 mg PO DAILY metoprolol succinate [Toprol XL] 25 MG tablet extended release 24 hr 25 mg PO DAILY Referrals Follow up/Referrals: Madiha Apodaca [Primary Care Provider] - See instructions Clinical Impressions Clinical Impression: Hypertensive urgency, Chest pain Discharge ED Provider: Laura Nj Adult HPI General Chief complaint: Dizziness Stated complaint: High BP, dizzy Time Seen by Provider: 10/12/21 15:53 Mode of Arrival: Ambulatory Source of Information: Patient Limitations: No Limitations History of Present Illness HPI narrative: 86-year-old female presenting to the emergency department with elevated blood pressure, lightheadedness. Incident happened just prior to arrival. She was at an outpatient cardiology scan, went to stand up and felt very lightheaded, vertigo. Staff checked her blood pressure and it was quite elevated at 200 systolic. Normal blood pressure for her is around 130 systolic. She suffers from coronary artery disease, had stents placed with Dr. Bateman. She has slight chest pain that is radiating into her teeth on the left. No recent exertional chest pain. No headache. No vision changes, spots in the vision. Does not feel dizzy or lightheaded at this time. Related Data Home Medications Medication Instructions Recorded Confirmed acetaminophen 325 mg tablet 325 mg PO Q6H PRN pain 05/16/18 10/05/21 (Tylenol) aspirin 81 mg tablet,delayed 81 mg PO DAILY CAD 05/16/18 10/05/21 release (Adult Low Dose Aspirin) meclizine 25 mg tablet 25 mg PO DAILY PRN Dizziness 05/16/18 10/05/21 famotidine 20 mg tablet (Pepcid) 20 mg PO DAILY PRN Acid Reflux 04/10/19 10/05/21 ferrous sulfate 325 mg (65 mg 325 mg PO DAILY iron supplement 10/28/19 10/05/21 iron) tablet,delayed release levothyroxine 25 mcg tablet 25 mcg PO DAILY thyroid 11/01/20 10/05/21 metoprolol succinate 25 mg 25 mg PO DAILY High blood pressure 11/18/20 10/05/21 tablet,extended release 24 hr (Toprol XL) latanoprost 0.005 % eye drops 1 drp ophthalmic (eye) DAILY 02/23/21 10/05/21 furosemide 20 mg tablet (Lasix) 20 mg PO DAILY Fluid 08/18/21 10/05/21 spironolactone 25 mg tablet 25 mg PO DAILY Fluid 08/18/21 10/05/21 Previous Rx's Medication Instructions Recorded ranolazine 500 mg tablet,extended 500 mg PO Q12H #60 tabs 10/05/21 release,12 hr (Ranexa) Allergies Allergy/AdvReac Type Severity Reaction Status Date / Time cefdinir Allergy Mild Verified 10/05/21 14:14 codeine Allergy Mild Verified 10/05/21 14:14 erythromycin base [From Eryc] Allergy Mild Verified 10/05/21 14:14 Penicillins Allergy Mild Verified 10/05/21 14:14 Sulfa (Sulfonamide Allergy Mild Verified 10/05/21 14:14 Antibiotics) [id number] Reductase AdvReac Mild Joint Pain Verified 10/05/21 14:14 Inhibitor PFSH PFSH Medical History Abnormal EKG Abnormal stress test Carotid artery stenosis Chest pain Dyspnea Edema Pulmonary hypertension Typical an
--- NOTE | 2021-10-12 16:02 | PC.NURSE ---
pt to radiology
[2021-10-12 16:09] LABS: Alanine Aminotransferase 19 U/L (12-78); Albumin Level 4.1 g/dl (3.5-5.0); Albumin/Globulin Ratio 1.6 (1.1-1.8); Alkaline Phosphatase 102 U/L (38-126); Anion Gap 11.2 mEq/L (5-15); Aspartate Amino Transferase 59 U/L (14-36); Bilirubin,Total 0.8 mg/dl (0.2-1.3); Blood Urea Nitrogen 18 mg/dl (7-17); Calcium 9.4 mg/dl (8.4-10.2); Carbon Dioxide 24 mmol/L (22.0-30.0); Chloride 104 mmol/L (98-107); Creatinine Clearance Estimated 37 mL/min (50-200); Estimated Glomerular Filt Rate 60 ml/min (>60); GFR (African American) 72 ML/MIN (>60); Globulin 2.6 g/dL (1.3-3.2); Glucose 82 mg/dl (74-100); Potassium 5.2 mmoL/L (3.5-5.1); Sodium 134 mmol/L (136-145); Total Protein,Serum 6.7 g/dl (6.3-8.2)
--- NOTE | 2021-10-12 16:41 | PC.NURSE ---
talking to about pt poc
--- NOTE | 2021-10-12 17:35 | PC.NURSE ---
DR URIBE HAS BEEN PAGED
[2021-10-12 18:08] LABS: Coronavirus 19, PCR Not Detected (NotDetected); Influenza A, PCR Not Detected (NotDetected); Influenza B, PCR Not Detected (NotDetected)
--- NOTE | 2021-10-12 18:09 | PC.NURSE ---
DR BROCK SPEAKING TO DR URIBE HE IS ON FOR UNASSIGNED
--- NOTE | 2021-10-12 18:43 | PC.NURSE ---
HOUSE CALLED FOR ADMISSION
[2021-10-12 19:05] LABS: Troponin I 0.03 ng/ml (0.00-0.034)
--- NOTE | 2021-10-12 20:13 | PC.NURSE ---
REPORT TO ILYA YO.
--- NOTE | 2021-10-12 20:25 | PC.NURSE ---
PT ARRIVED VIA WHEEL CHAIR TO FLOOR
[2021-10-12 21:12] LABS: Microscopic, Urine URINE MICROSCOPIC (MICROSCOPIC)
[2021-10-12 21:17] LABS: Appearance,Urine CLEAR (Clear); Bilirubin,Urine Negative (Negative); Blood, Urine Negative (Negative); Color,Urine YELLOW (Yellow); Glucose,Urine (UA) Negative (Negative); Ketones,Urine Negative (Negative); Leukocyte Esterase,Urine TRACE (Negative); Nitrate,Urine Negative (Negative); Protein,Urine Negative (Negative); Urobilinogen,Urine 0.2 EU/dl (0.2)
[2021-10-12 21:52] LABS: Bacteria,Urine 4+ /lpf; Squamous Epithelial Cell,Urine Occasional #/hpf (0-5)
[2021-10-12 21:54] LABS: Troponin I 0.04 ng/ml (0.00-0.034)
[2021-10-13] VITALS (22 sets, daily range): BP systolic 114–162; BP diastolic 44–88; PULSE 50–64; RESP 16–20; TEMP 36.7–37.1; O2SAT 93–100; BMI 21.3
--- NOTE | 2021-10-13 | IR_ITS ---
APPROVED REPORT Patient Location: Inpatient Legal Investigator: HÉCTOR Argueta RT (R) PROCEDURES Left heart catheterization Left ventricular Selective coronary angiogram INDICATION Known coronary artery disease, Abnormal Myoview, Elevated troponin, Chest Informed consent was obtained prior to the procedure. COMPLICATIONS None Estimated Blood Loss: Less than 10 ML TECHNIQUE One percent lidocaine used to anesthetize the right anterior aspect of the wrist. The right radial artery was accessed via the Seldinger technique. A 6 Irish sheath was placed in the right radial artery. 2.5 mg of verapamil, 800 mcg of nitroglycerin, 1mg Lidocaine and 5000 U Heparin were given through the arterial sheath. The papa catheter was also used to perform left heart catheterization, left ventriculogram and selective coronary angiogram. At the end of the procedure the sheath was removed good hemostasis was achieved using Traclet band, patient was transferred to the postop holding area in stable condition. ANGIOGRAPHIC RESULTS The left main artery Normal The left anterior descending artery Has an ostial 20% stenosis followed by proximal stent which is widely patent with minimal in-stent restenosis. The remaining LAD has a mid vessel 40 to 50% concentric stenosis with additional 50 to 60% distal stenosis along tortuous bends. First diagonal artery which is jailed is widely patent and with minimal in-stent restenosis The circumflex artery Is a codominant vessel with diffuse 20% calcified stenoses The right coronary artery Is a codominant vessel and has a mid vessel 40% concentric stenosis The WOOD ventriculogram reveals Hyperdynamic at 75% The left ventricular end-diastolic pressure 20 mmHg IMPRESSION Coronary artery disease as described above Hyperdynamic ventricle Elevated LVEDP PLAN 1. Continue medical management while maximize antianginals and better controlling hypertension Electronically signed by : Ankur Bateman MD 10/13/2021 14:37:25
--- NOTE | 2021-10-13 04:15 | PC.NURSE ---
Pt is a/o x4. Pt has not voiced any c/o pain through the night. Pt able to ambulate to BR independently. Sinus arrhythmia on tele. Call light within reach.
[2021-10-13 06:32] LABS: Blood Urea Nitrogen 17 mg/dl (7-17); Carbon Dioxide 24 mmol/L (22.0-30.0); Chloride 109 mmol/L (98-107); Creatinine Clearance Estimated 38 mL/min (50-200); Estimated Glomerular Filt Rate 60 ml/min (>60); GFR (African American) 72 ML/MIN (>60); Glucose 75 mg/dl (74-100); Potassium 4.3 mmoL/L (3.5-5.1)
[2021-10-13 06:56] LABS: Anion Gap 7.3 mEq/L (5-15); Sodium 136 mmol/L (136-145)
--- NOTE | 2021-10-13 07:45 | EXP.PHA.VTE ---
[facility] Pharmacy VTE Monitoring Patient Demographics Admission date: 10/13/21 Report Date: 10/13/21 Time: 07:45 Patient Allergies cefdinir Allergy (Mild, Verified 10/05/21 14:14) codeine Allergy (Mild, Verified 10/05/21 14:14) erythromycin base [From Eryc] Allergy (Mild, Verified 10/05/21 14:14) Penicillins Allergy (Mild, Verified 10/05/21 14:14) Sulfa (Sulfonamide Antibiotics) Allergy (Mild, Verified 10/05/21 14:14) [id number] Reductase Inhibitor Adverse Reaction (Mild, Verified 10/05/21 14:14) Joint Pain Height: 1.63 m Weight: 56.744 kg Current Active Problems (Updated 10/12/21 @ 16:53 by Laura Nj DO) Hypertensive urgency (Acute) Chest pain (Acute) VTE Risk Labs: VTE Related Lab Results Hgb 12.1 g/dL (12.2-16.2) L 10/12/21 15:00 Hct 40.7 % (37.0-47.0) 10/12/21 15:00 Plt Count 262 K/mm3 (142-424) 10/12/21 15:00 BUN 17 mg/dl (7-17) 10/13/21 06:08 Creatinine 0.90 mg/dl (0.52-1.04) 10/13/21 06:08 Estimated Creat Clear 38 mL/min (50-200) 10/13/21 06:08 Prophylaxis VTE Prophylaxis Ordered?: Yes Types of VTE Prophylaxis: TEDS Knee High
--- NOTE | 2021-10-13 09:35 | PC.NURSE ---
rounded with md. patient sitting up in bed. no complaints of current pain. occasional pain in jaw, that could be related to tmj . patient had stress test yesterday. cardiology consult in place.
--- NOTE | 2021-10-13 09:36 | EXP.ACUTE.PN ---
Subjective *Date: 10/13/21 *Time: 09:36 Interval history: Admitted yesterday per instructions of cardiology. 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 She describes some jaw pain but has a history of TMJ. Cardiology requested hospitalization for observation and further evaluation. Please see their notes. She might possibly be discharged today but that is their determination. Medical Exam Vital signs and Labs for Last 24 Hours: Temp Pulse Resp BP Pulse Ox 98.1 F 58 L 16 140/67 100 10/13/21 07:46 10/13/21 07:46 10/13/21 07:46 10/13/21 07:46 10/13/21 07:46 Laboratory Results - last 24 hr 10/12/21 15:00: WBC 4.6 L, RBC 3.69 L, Hgb 12.1 L, Hct 40.7, MCV 110.1 H, MCH 32.8 H, MCHC 29.8 L, RDW 16.0, Plt Count 262, MPV 8.4, Neut % (Auto) 65.8, Lymph % (Auto) 23.5, [place] % (Auto) 8.0, Eos % (Auto) 2.0, Baso % (Auto) 0.7, Neut # (Auto) 3.0, Lymph # (Auto) 1.1, [place] # (Auto) 0.4, Eos # (Auto) 0.1, Baso # (Auto) 0.0 10/12/21 15:00: Sodium 134 L, Potassium 4.5, Chloride 104, Carbon Dioxide 24, Anion Gap 10.5, BUN 17, Creatinine 0.90, Estimated Creat Clear 37, Estimated GFR 60, Est GFR ( Amer) 72, Glucose 84, Calcium 9.5, Troponin I < 0.01 10/12/21 15:00: Sodium 134 L, Potassium 5.2 H, Chloride 104, Carbon Dioxide 24, Anion Gap 11.2, BUN 18 H, Creatinine 0.90, Estimated Creat Clear 37, Estimated GFR 60, Est GFR ( Amer) 72, Glucose 82, Calcium 9.4, Total Bilirubin 0.8, AST 59 H, ALT 19, Alkaline Phosphatase 102, Total Protein 6.7, Albumin 4.1, Globulin 2.6, Albumin/Globulin Ratio 1.6 10/12/21 18:04: SARS-CoV-2 (PCR) Not detected, Influenza A Untype (PCR) Not detected, Influenza Type B (PCR) Not detected 10/12/21 18:20: Troponin I 0.03 10/12/21 21:05: Urine Color Yellow, Urine Appearance Clear, Urine pH 7.0, Ur Specific [place] 1.010, Urine Protein Negative, Urine Glucose (UA) Negative, Urine Ketones Negative, Urine Blood Negative, Urine Nitrate Negative, Urine Bilirubin Negative, Urine Urobilinogen 0.2, Ur Leukocyte Esterase Trace, Urine RBC None, Urine WBC 3-5, Ur Squamous Epith Cells Occasional, Urine Bacteria 4+ 10/12/21 21:21: Troponin I 0.04 H 10/13/21 06:08: Sodium 136, Potassium 4.3, Chloride 109 H, Carbon Dioxide 24, Anion Gap 7.3, BUN 17, Creatinine 0.90, Estimated Creat Clear 38, Estimated GFR 60, Est GFR ( Amer) 72, Glucose 75, Calcium 9.0 I & O for Labs for Last 24 Hours: Intake & Output 10/10/21 10/11/21 10/12/21 10/13/21 11:59 11:59 11:59 11:59 Intake Total 720 / 720 Output Total 1000 / 1000 Balance -280 / -280 Weight 125 lb 1.6 oz Microbiology Reports for the Last 24 Hours: Microbiology 10/12/21 21:05 Urine,Clean Catch Urine Culture - Preliminary Head: normocephalic Neck: normal inspection Respiratory: CTA bilaterally Cardiac: Regular Rate, Regular Rhythm and S4 GI: soft and tenderness Rectal (female): deferred (female): deferred Extremities: edema Skin: intact Neuro: alert and oriented x 3 Assessment and Plan *Assessment and plan (1) Hypertensive urgency: Status: Acute Category: Medical Code(s): I16.0 - Hypertensive urgency (2) HHD (hypertensive heart disease): Status: Chronic Qualifiers: Heart failure presence: with heart failure Heart failure type: diastolic Heart failure chronicity: chronic Qualified Code(s): I11.0 - Hypertensive heart disease with heart failure; I50.32 - Chronic diastolic (congestive) heart failure Category: Medical Code(s): I11.9 - Hypertensive heart disease without heart failure (3) CAD (coronary artery disease): Status: Chronic Qualifiers: Coronary Disease-Associated Artery/Lesion type: [place] artery [place] vs. transplanted heart: morongo heart Associated angina: with other forms of angina Qualified Code(s): I25.118 - Atherosclerotic heart disease of morongo coronary artery with other forms o
--- NOTE | 2021-10-13 11:15 | EXP.CARD.CON ---
History of Present Illness History of Present Illness Consult date: 10/13/21 Requesting physician: Roland Jasso Consult reason: chest pain Chief complaint: HTN urgency, chest pain Additional Medical History:: 1. CAD A. History of coronary stenting, 2006 B. [facility], 11/2020, 40% LAD lesion with 10% lesions in circumflex and RCA. Normal EF C. Anteroseptal ischemia on Lexiscan Myoview, 10/2021 2. Hypertension A. Hypertensive urgency, 10/12/2021 B. Echocardiogram, 11/04/2020, mild biatrial enlargement, normal LV size, mild concentric LVH with EF 55% and no regional wall motion abnormality. Grade 1 diastolic dysfunction. Mildly enlarged right ventricle with normal contractility. Mild pulmonic, aortic mitral and moderate tricuspid regurgitation. RVSP calculated at 49 mmHg. 3. Hyperlipidemia 4. UTI, 10/2021 5. Pulmonary hypertension with evidence of centrilobular emphysema on CT of the chest 07/2020 6. Carotid artery stenosis, less than 20% R ICA, 20 to 49% LICA, 02/24/2021 7. 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 She held 2 doses of her blood pressure medication in preparation for the stress test as instructed. Prior to the stress test blood pressure was noted to be about 200 systolic. The stress test was performed without significant rise in blood pressure, however afterward the blood pressure continued to be elevated and patient was sent to the ER for further evaluation. She was given oral metoprolol and IV metoprolol with slow decline in blood pressure thereafter. It was elected to admit her for observation. Patient has had intermittent chest pain with left jaw pain over the last 6 weeks. It is not necessarily associated with activity and is not as sharp as her previous angina symptoms from 2006. She did have a cardiac catheterization last year with mild to moderate disease noted. During her hospital stay this admission her troponins have returned mildly positive with 0.04 max. She has had significant increase in fatigue recently. The Lexiscan Myoview shows evidence of anteroseptal ischemia and recommendation for left heart catheterization has been made. Patient agrees to proceed in this fashion. [facility] Medical History (Updated 10/12/21 @ 16:53 by Laura Nj DO) Abnormal EKG Abnormal stress test Carotid artery stenosis Chest pain Dyspnea Edema Pulmonary hypertension Typical angina Surgical History (Updated 10/12/21 @ 20:40 by Elizabeth Delgado RN) History of tonsillectomy Social History (Updated 10/05/21 @ 14:31 by Bridget Gonsalez APRN) Smoking Status: Never smoker alcohol intake: never substance use type: denies use current occupational status: retired Travel in the last 8 weeks: None household members: none housing: house current occupational exposures/hazards: No caffeine: Yes Review of Systems Constitutional Constitutional: Reports fatigue, Denies headache(s) and Denies weakness ENT Ears, Nose, Mouth, and Throat: Reports dizziness, Denies headache(s) and Reports vertigo *Cardiovascular Cardiovascular: Reports chest pain, Reports dyspnea on exertion, Reports radiating jaw, neck or arm pain and Denies syncope *Respiratory Respiratory: Reports dyspnea on exertion *Neurologic Neurologic: Reports dizziness, Denies headache(s), Denies syncope, Reports vertigo and Denies weakness Endocrine Endocrine: Reports fatigue Exam Data for Last 24 hours Vital signs and Labs for Last 24 Hours: Temp Pulse Resp BP Pulse Ox 98.1 F 60 16 140/67 100 10/13/21 07:46 10/13/21 08:00 10/13/21 07:46 10/13/21 07:46 10/13/21 07:46 Laboratory Results - last 24 hr 10/12/21 15:00: WBC 4.6 L, RBC 3.69 L, Hgb 12.1 L, Hct 40.7, MCV 110.1 H, MCH 32.8 H, MCHC 29.8 L, R
--- NOTE | 2021-10-13 11:58 | PC.NURSE ---
rounded on patient. went over cathlab consent . patient during this time stated she wanted to sign a DNR. educated over DNR, and that during procedure it would be void until arrival back to floor. voiced understanding of this. encouraged her to ring out as needed, with any concerns or needs.
--- NOTE | 2021-10-13 12:59 | EXP.HP ---
History of Present Illness *Admission Date: 10/13/21 *Reason for visit:: hypertension *History of present illness: 86-year-old white female with known history of coronary artery disease presented to [facility] yesterday for Lexiscan Myoview.? She held 2 doses of her blood pressure medication in preparation for the stress test as instructed.? Prior to the stress test blood pressure was noted to be about 200 systolic.? The stress test was performed without significant rise in blood pressure, however afterward the blood pressure continued to be elevated and patient was sent to the ER for further evaluation.? She was given oral metoprolol and IV metoprolol with slow decline in blood pressure thereafter.? It was elected to admit her for observation. Patient has had intermittent chest pain with left jaw pain over the last 6 weeks.? It is not necessarily associated with activity and is not as sharp as her previous angina symptoms from 2006.? She did have a cardiac catheterization last year with mild to moderate disease noted. During her hospital stay this admission her troponins have returned mildly positive with 0.04 max.? She has had significant increase in fatigue recently.? The Lexiscan Myoview shows evidence of anteroseptal ischemia and recommendation for left heart catheterization has been made.? Patient agrees to proceed in this fashion. (above as per [facility] Cardiology) The patient also noted that she was diagnosed with a UTI this week as well and did not have time to start on her cipro before she was hospitalized. [facility] Medical History (Updated 10/13/21 @ 13:02 by TRACY Maria) Abnormal EKG Abnormal stress test Carotid artery stenosis Chest pain Dyspnea Edema H/O nephrolithotomy with removal of calculi Pulmonary hypertension Right arm fracture Typical angina Surgical History (Updated 10/13/21 @ 13:02 by TRACY Maria) H/O adenoidectomy H/O left breast biopsy History of coronary artery stent placement History of tonsillectomy Family History (Updated 10/13/21 @ 13:02 by TRACY Maria) Coronary artery disease Heart attack Social History (Updated 10/05/21 @ 14:31 by Bridget Gonsalez APRN) Smoking Status: Never smoker alcohol intake: never substance use type: denies use current occupational status: retired Travel in the last 8 weeks: None household members: none housing: house current occupational exposures/hazards: No caffeine: Yes Review of Systems Constitutional Constitutional: Denies fever(s), Denies headache(s) and Reports weakness Eyes Eyes: Denies blurry vision and Denies diplopia ENT Ears, Nose, Mouth, and Throat: Reports dizziness, Denies headache(s), Denies nasal congestion, Denies sore throat and Reports vertigo *Cardiovascular Cardiovascular: Reports chest pain, Reports dyspnea on exertion, Denies leg edema and Denies syncope *Respiratory Respiratory: Denies cough and Reports dyspnea on exertion *Gastrointestinal Gastrointestinal: Denies abdominal pain, Denies loose stools, Reports nausea and Denies vomiting *Genitourinary Genitourinary: Reports dysuria *Musculoskeletal Musculoskeletal: Denies arthralgias and Reports muscle weakness *Neurologic Neurologic: Reports dizziness, Denies headache(s), Denies syncope, Reports vertigo and Reports weakness Meds Home Medications and Allergies Home Medications Medication Instructions Recorded Confirmed Type acetaminophen 325 mg tablet 325 mg PO Q6H PRN pain 05/16/18 10/12/21 History (Tylenol) aspirin 81 mg tablet,delayed 81 mg PO HS CAD 05/16/18 10/12/21 History release (Adult Low Dose Aspirin) meclizine 25 mg tablet 25 mg PO DAILY PRN Dizziness 05/16/18 10/12/21 History famotidine 20 mg tablet (Pepcid) 20 mg PO DAILY PRN Acid Reflux 04/10/19 10/12/21 History ferrous sulfate 325 mg (65 mg 325 mg PO DAILY iron supplement 10/28/19 10/12/21 History iron) tablet,delayed release levothyroxine 25 mcg table
--- NOTE | 2021-10-13 16:18 | HMH.PHAINT1 ---
Pharmacy Intervention Comments: DISCHARGE MEDICATION COUNSELING PROVIDED. DISCUSSED STOPPING THE RANEXA 500 MG TAB AND STARTING RANEXA 1000 MG TWICE DAILY. PATIENT EXPRESSED CONCERN OVER COST OF RANEXA AND WAS ADVISED SHE CAN TAKE TWO OF THE 500 MG TABLETS TWICE DAILY FROM THE CURRENTLY FILLED BOTTLE UNTIL SHE FOLLOWS UP WITH CARDIOLOGY. ALSO DISCUSSED THE PROTONIX, FOR REFLUX, TAKE DAILY 30-60 MINUTES PRIOR TO BREAKFAST WITH A FULL GLASS OF WATER. PATIENT ASKED IF SHE SHOULD CONTINUE THE ANTIBIOTIC THAT WAS PRESCRIBED FOR UTI PRIOR TO ADMISSION AND WAS ADVISED TO CONTINUE IT. PATIENT VERBALIZED NO FURTHER QUESTIONS.
--- NOTE | 2021-10-16 22:55 | EXP.DC.SUM ---
General Admission date:: 10/12/21 Discharge date: 10/13/21 HPI HPI HPI: 86-year-old white female with known history of coronary artery disease presented to [facility] yesterday for Lexiscan Myoview.? She held 2 doses of her blood pressure medication in preparation for the stress test as instructed.? Prior to the stress test blood pressure was noted to be about 200 systolic.? The stress test was performed without significant rise in blood pressure, however afterward the blood pressure continued to be elevated and patient was sent to the ER for further evaluation.? She was given oral metoprolol and IV metoprolol with slow decline in blood pressure thereafter.? It was elected to admit her for observation. Patient has had intermittent chest pain with left jaw pain over the last 6 weeks.? It is not necessarily associated with activity and is not as sharp as her previous angina symptoms from 2006.? She did have a cardiac catheterization last year with mild to moderate disease noted. During her hospital stay this admission her troponins have returned mildly positive with 0.04 max.? She has had significant increase in fatigue recently.? The Lexiscan Myoview shows evidence of anteroseptal ischemia and recommendation for left heart catheterization has been made.? Patient agrees to proceed in this fashion. (above as per [facility] Cardiology) The patient also noted that she was diagnosed with a UTI this week as well and did not have time to start on her cipro before she was hospitalized. Hospital Course Hospital Course Hospital Course: The patient had an abnormal stress test and was therefore taken for a heart cath. It showed coronary artery disease, but not significant enough for stent placement, as well as an elevated LVEDP. Cardiology recommended medical management and to maximize antianginals. They increased her ranexa and added protonix. She was stable for discharge. Exam Data for Last 24 hours Vital signs and Labs for Last 24 Hours: Temp Pulse Resp BP Pulse Ox 98.1 F 64 18 137/72 98 10/13/21 15:11 10/13/21 17:55 10/13/21 17:55 10/13/21 17:55 10/13/21 17:55 I & O for Last 24 hours: Intake & Output 10/14/21 10/15/21 10/16/21 10/17/21 11:59 11:59 11:59 11:59 Intake Total 320 / 320 Output Total 150 / 150 Balance 170 / 170 Narrative: Constitutional Constitutional: no acute distress *Routine HEENT Exam Head: Present normocephalic and atraumatic Eye: Present EOMI and PERRL ENT: Present mucous membranes moist *Routine Neck Exam Neck: Present supple and full ROM *Routine Respiratory Exam Respiratory: Present CTA bilaterally *Routine Cardiovascular Exam Cardiovascular: Present RRR *Routine Abdominal Exam Abdominal: Present soft and normoactive bowel sounds; Absent tenderness *Routine Rectal Exam Rectal:: deferred *Routine Genitalia Exam Genitalia:: deferred *Routine Extremities Exam Extremities: Absent cyanosis, clubbing or edema *Routine Skin Exam Skin: Present intact; Absent erythema *Routine Neurological Exam Neurological: Present alert and oriented X3 DS: Diagnosis Discharge Diagnosis (1) Hypertensive urgency: Status: Acute (2) Abnormal stress test: Status: Acute (3) CAD (coronary artery disease): Status: Chronic (4) HHD (hypertensive heart disease): Status: Chronic (5) HLD (hyperlipidemia): Status: Chronic (6) UTI (urinary tract infection): Status: Acute (7) Fatigue: Status: Chronic (8) Aortic insufficiency: Status: Chronic (9) Pulmonary hypertension: Status: Chronic (10) Chest pain: Status: Acute Meds Home Medications and Allergies Home Medications Medication Instructions Recorded Confirmed Type acetaminophen 325 mg tablet 325 mg PO Q6H PRN pain 05/16/18 10/12/21 History (Tylenol) aspirin 81 mg tablet,delayed 81 mg PO HS CAD 05/16/18 10/12/21 History release (Adult Low Dose Asp
--- NOTE | 2021-10-17 13:12 | CARE MANAGER ---
Spoke with patient for post-discharge phone interview, she states that she is feeling good and has no issues at this time. She is aware of her follow-up appointments.
== END 2021-10-13 19:05 | disposition home or self-care (01) ==
LOC: ER 16:53 → 2ND 18:59
PROVIDERS: Internal Medicine; Admitting Provider Family Medicine; Emergency Provider Emergency Medicine; PCP Family Medicine; Visit Provider Family Medicine
DX: I11.0 Hypertensive heart disease with heart failure (principal); I50.32 Chronic diastolic (congestive) heart failure; I25.118 Atherosclerotic heart disease of native coronary artery with other forms of angina pectoris; E78.2 Mixed hyperlipidemia; N39.0 Urinary tract infection, site not specified; I35.1 Nonrheumatic aortic (valve) insufficiency; I27.20 Pulmonary hypertension, unspecified; R94.39 Abnormal result of other cardiovascular function study; I65.23 Occlusion and stenosis of bilateral carotid arteries; T82.855A Stenosis of coronary artery stent, initial encounter; Y83.1 Surgical operation with implant of artificial internal device as the cause of abnormal reaction of the patient, or of later complication, without mention of misadventure at the time of the procedure; Z20.822 Contact with and (suspected) exposure to COVID-19
CPT/HCPCS: G0378; 36415; 70450; 71045; 78452; 80048; 80053; 81001; 84484; 85025; 87086; 87088; 87186; 93005; 93017; 93458; 99152; 99285; A9502; C1725; C1769; C9803; J1644; J2785; Q9967; U0003; U0005

== ENCOUNTER → 2021-10-31 10:10 | Outpatient (CLI) | payer MEDICARE, BC, SELFPAY ==
--- NOTE | 2021-10-31 10:11 | US_ITS ---
FINAL REPORT TECHNIQUE: Sonographic images were obtained of the retroperitoneum. CLINICAL HISTORY: R42 - Dizziness and giddiness; HYPERTENSION FINDINGS: The right kidney measures 10.2 cm. The left kidney measures 10.2 cm. 11 mm hypoechoic lower pole left renal lesion does not have characteristics of a simple cyst. Previously measured [address] dated July 2020. The spleen measures 8.1 cm. IMPRESSION: Hypoechoic left renal lesion probably a complex cyst. Continued imaging follow-up is recommended in 12 months. Otherwise unremarkable exam. Reviewed, Interpreted and Dictated by Roland Canseco MD Transcribed by Cody Correia Authenticated and [facility]
== END ==
PROVIDERS: PCP Family Medicine; Visit Provider Physician Assistant
DX: E78.2 Mixed hyperlipidemia (principal); I11.0 Hypertensive heart disease with heart failure; I25.118 Atherosclerotic heart disease of native coronary artery with other forms of angina pectoris; I27.20 Pulmonary hypertension, unspecified; I35.1 Nonrheumatic aortic (valve) insufficiency; I50.32 Chronic diastolic (congestive) heart failure; I65.23 Occlusion and stenosis of bilateral carotid arteries; R06.09 Other forms of dyspnea; R09.89 Other specified symptoms and signs involving the circulatory and respiratory systems; R42 Dizziness and giddiness; R94.31 Abnormal electrocardiogram [ECG] [EKG]
CPT/HCPCS: 76770

== ENCOUNTER → 2021-11-02 07:41 | Outpatient (CLI) | payer MEDICARE, BC, SELFPAY ==
--- NOTE | 2021-11-02 07:42 | CA_ITS ---
FINAL REPORT CLINICAL HISTORY: HTN FINDINGS: Aorta velocity: 52.1 cm/sec Right kidney: 10.2 cm. No evidence of hydronephrosis or mass. Right intrarenal RI: .79 Right renal artery velocity: 252 cm/sec. Right RAR (Renal artery-Aortic Ratio): 4.5 Left Kidney: 11.3 cm. No evidence of hydronephrosis or mass. Left intrarenal RI: .68 Left renal artery velocity: 182 cm/sec. Left RAR (Renal Artery-Aortic Ratio): 3.5 IMPRESSION: Greater than 60% renal artery stenosis, right more pronounced than left. CTA or MRA would be more sensitive study for further evaluation. Reviewed, Interpreted and Dictated by Roland Canseco MD Transcribed by Vidya Valdovinos Authenticated and . [facility]
== END ==
PROVIDERS: PCP Family Medicine; Visit Provider Physician Assistant
DX: E78.2 Mixed hyperlipidemia (principal); I11.0 Hypertensive heart disease with heart failure; I25.118 Atherosclerotic heart disease of native coronary artery with other forms of angina pectoris; I27.20 Pulmonary hypertension, unspecified; I35.1 Nonrheumatic aortic (valve) insufficiency; I50.32 Chronic diastolic (congestive) heart failure; I65.23 Occlusion and stenosis of bilateral carotid arteries; R06.09 Other forms of dyspnea; R09.89 Other specified symptoms and signs involving the circulatory and respiratory systems; R42 Dizziness and giddiness; R94.31 Abnormal electrocardiogram [ECG] [EKG]
CPT/HCPCS: 93976

== ENCOUNTER 2021-11-04 11:00 | Outpatient (RCR) | payer MEDICARE, BC, SELFPAY | END 2021-11-04 11:05 | disposition home or self-care (01) | LOC: PT 11:00 | PROVIDERS: PCP Family Medicine; Visit Provider Family Medicine | DX: R53.1 Weakness (principal); M54.10 Radiculopathy, site unspecified | CPT/HCPCS: 97110; 97163; 97164 ==

== ENCOUNTER → 2021-11-07 09:54 | Outpatient (CLI) | payer MEDICARE, BC, SELFPAY | PROVIDERS: PCP Family Medicine; Visit Provider Physician Assistant | DX: E78.2 Mixed hyperlipidemia (principal); I11.0 Hypertensive heart disease with heart failure; I25.118 Atherosclerotic heart disease of native coronary artery with other forms of angina pectoris; I27.20 Pulmonary hypertension, unspecified; I35.1 Nonrheumatic aortic (valve) insufficiency; I50.32 Chronic diastolic (congestive) heart failure; I65.23 Occlusion and stenosis of bilateral carotid arteries; R09.89 Other specified symptoms and signs involving the circulatory and respiratory systems; R94.31 Abnormal electrocardiogram [ECG] [EKG]; Z01.812 Encounter for preprocedural laboratory examination; Z20.822 Contact with and (suspected) exposure to COVID-19 | CPT/HCPCS: C9803; U0003; U0005 ==

== ENCOUNTER 2021-11-09 07:13 | Day surgery (SDC) | payer MEDICARE, BC, SELFPAY ==
[2021-11-09] VITALS (72 sets, daily range): BP systolic 114–169; BP diastolic 46–86; PULSE 43–65; RESP 16–18; TEMP 37.1; O2SAT 93–100; BMI 21.1; BMI 21.8
--- NOTE | 2021-11-09 07:12 | IR_ITS ---
APPROVED REPORT Patient Location: Outpatient Vehicle Damage Appraiser: HÉCTOR Argueta RT (R) PROCEDURES Bilateral selective renal angiogram Bare-metal stent deployment to the proximal right renal artery INDICATION Abnormal renal duplex, Renal artery stenosis, Renovascular hypertension Informed consent was obtained prior to the procedure. COMPLICATIONS NONE Estimated Blood Loss: LESS THAN 10 ML TECHNIQUE 1% lidocaine used to anesthetize the right femoral groin. The right femoral artery was accessed via the Seldinger technique. A 5 Tongan sheath was placed in the right femoral artery and a JR4 catheter was used to perform bilateral selective renal angiography. At the end of the procedure therapeutic heparin was administered giving a therapeutic ACT and the 5 Tongan sheath exchanged for a 7 Tongan sheath. A renal double curve guide catheter was placed in the right renal artery followed by a Choice PT extra-support wire. A 6 mm x 18 mm Herculink stent was deployed at 14 edmar initially then the balloon was brought back and deployed at 18 and then 20 edmar to post dilate the proximal segment. Excellent angiograph results were obtained at the end of procedure the apparatus was removed the patient was transferred the postop putting in stable condition for sheath removal ANGIOGRAPHIC RESULTS Right renal artery singular and has an ostial proximal calcified 70% stenosis Left renal artery singular and has an ostial proximal 20 to 30% calcified stenosis IMPRESSION Severe right renal artery stenosis with successful stenting reducing lesion to less than 10% with 1 bare-metal stent Mild left renal artery stenosis PLAN 1. Observation overnight due to inability to place Perclose or closure device 2. Dual antiplatelet therapy for 1 month 3. Treatment of hypertension Electronically signed by : Ankur Bateman MD 11/09/2021 11:35:39
[2021-11-09 07:44] LABS: Basophils % 1.1 % (0.1-2.0); Eosinophils # 0.2 K/mm3 (0.0-0.4); Eosinophils % 5.5 % (0.1-12.0); Hematocrit 36.6 % (37.0-47.0); Hemoglobin 11.3 g/dL (12.2-16.2); Lymphocytes # 0.8 K/mm3 (0.7-4.5); Lymphocytes % 20.4 % (10-50); Mean Corpuscular HGB Conc 30.9 g/dL (31.8-35.4); Mean Corpuscular Hemoglobin 35.1 pg (27.0-31.2); Mean Corpuscular Volume 113.7 fl (81-99); Mean Platelet Volume 8.4 fl (7.4-10.4); Monocytes # 0.5 K/mm3 (0.1-1.0); Monocytes % 12.1 % (1.7-9.3); Neutrophils # 2.3 K/mm3 (1.8-7.8); Neutrophils % 60.9 % (37.0-80.0); Platelet Count 234 K/mm3 (142-424); Red Blood Count 3.22 M/mm3 (4.20-5.40); Red Cell Distribution Width 16.4 % (11.5-17.5); White Blood Count 3.9 K/mm3 (4.8-10.8)
[2021-11-09 07:51] LABS: Chloride 104 mmol/L (98-107); Potassium 4.6 mmoL/L (3.5-5.1); Sodium 140 mmol/L (136-145)
[2021-11-09 07:53] LABS: Blood Urea Nitrogen 21 mg/dl (7-17)
[2021-11-09 07:54] LABS: Anion Gap 10.6 mEq/L (5-15); Calcium 9.5 mg/dl (8.4-10.2); Carbon Dioxide 30 mmol/L (22.0-30.0); Creatinine Clearance Estimated 37 mL/min (50-200); Estimated Glomerular Filt Rate 53 ml/min (>60); GFR (African American) 64 ML/MIN (>60); Glucose 100 mg/dl (74-100)
[2021-11-09 11:31] LABS: CATHL Activated Clotting Time 252 SEC (74-125)
--- NOTE | 2021-11-09 14:08 | PC.NURSE ---
patient arrived to floor by stretcher at14:07 from rags laborer
--- NOTE | 2021-11-09 16:15 | PC.NURSE ---
called laboratory director spoke with Dr. Bhavana jeff swab was negative before cath
--- NOTE | 2021-11-09 20:08 | PC.NURSE ---
Pt is A/ox4. She has laid flat entire shift since she has been up. She has clean lung sounds. She has been pleasant. Her right groin site has been has been clean dry and intact.
[2021-11-10] VITALS: BP 99/46; PULSE 54; RESP 16; TEMP 36.7; O2SAT 94
[2021-11-10 04:00] VITALS: BP 100/49; PULSE 56; PULSE 60; RESP 16; TEMP 37; O2SAT 95; BMI 22.1
--- NOTE | 2021-11-10 05:15 | PC.NURSE ---
PT HAS SLEPT MAJORITY OF THE NIGHT. THIS MORNING PT STATES HER BELLY IS A LITTLE TENDER, HAS NO OTHER C/O. RIGHT FEMORAL CATH SITE DSG C/D/I. BLE WARM AND PINK. PT AMBULATED TO WITH STANDBY ASSIST AND TOLERATED WELL. URINE CLEAR AND YELLOW. REMAINS ON TELE. HR HAS BEEN 54-64.
[2021-11-10 05:26] VITALS: PULSE 50
[2021-11-10 07:42] VITALS: BP 132/52; PULSE 58; RESP 16; TEMP 36.8; O2SAT 96
[2021-11-10 08:00] VITALS: PULSE 70
--- NOTE | 2021-11-10 10:39 | PC.NURSE ---
Patient educated about surgical site infections, signs and symptoms and what to do if she suspected an infection. Discharge instructions given about limitations with groin site. Patient advised to take plavix for one month and told of follow up appointment with Dr. Bateman thats already scheduled.
--- NOTE | 2021-11-10 16:03 | HMH.PHACL ---
PHA Probation And Parole Officer Discharge Med Psych Therapist: Jenelle Mathur LEFT PRIOR TO RECEIVING discharge medication counseling. THE PATIENT IS TAKING THE FOLLOWING MEDICATIONS: -ASPIRIN -ATORVASTATIN -PLAVIX -LOSARTAN -METOPROLOL
== END 2021-11-10 10:11 | disposition home or self-care (01) ==
LOC: CATHLAB 08:36 → 2ND 11:10
PROVIDERS: PCP Family Medicine; Visit Provider Internal Medicine
DX: E78.2 Mixed hyperlipidemia (principal); I11.0 Hypertensive heart disease with heart failure; I25.118 Atherosclerotic heart disease of native coronary artery with other forms of angina pectoris; I27.20 Pulmonary hypertension, unspecified; I35.1 Nonrheumatic aortic (valve) insufficiency; I50.32 Chronic diastolic (congestive) heart failure; I65.23 Occlusion and stenosis of bilateral carotid arteries; R94.31 Abnormal electrocardiogram [ECG] [EKG]; I15.0 Renovascular hypertension; I70.1 Atherosclerosis of renal artery; I77.1 Stricture of artery
CPT/HCPCS: 36252; 36415; 37236; 80048; 85025; 85347; 99152; C1725; C1769; C1876; C1894; J1644; J2720; Q9967

== ENCOUNTER → 2021-11-16 14:04 | Outpatient (CLI) | payer MEDICARE, BC, SELFPAY ==
--- NOTE | 2021-11-16 14:05 | CA_ITS ---
FINAL REPORT CLINICAL HISTORY: RT GROIN BRUISING,KNOT RT GROIN,S/P CATH ON 11/09/21 FINDINGS: Doppler imaging of the right inguinal region was performed. There is no evidence of pseudoaneurysm. The right femoral artery and vein are patent. There is a 1.2 x 1.0 cm probable hematoma or other small fluid collection. IMPRESSION: No evidence of pseudoaneurysm. Probable hematoma or other fluid collection. Reviewed, Interpreted and Dictated by Alan Soares III, MD Transcribed by Vidya Valdovinos Authenticated and [facility]
== END ==
PROVIDERS: PCP Family Medicine; Visit Provider Physician Assistant
DX: I11.0 Hypertensive heart disease with heart failure; I25.118 Atherosclerotic heart disease of native coronary artery with other forms of angina pectoris; I27.20 Pulmonary hypertension, unspecified; I35.1 Nonrheumatic aortic (valve) insufficiency; I50.32 Chronic diastolic (congestive) heart failure; I65.23 Occlusion and stenosis of bilateral carotid arteries; I70.1 Atherosclerosis of renal artery; R06.09 Other forms of dyspnea; R09.89 Other specified symptoms and signs involving the circulatory and respiratory systems; R10.31 Right lower quadrant pain; R42 Dizziness and giddiness; R94.31 Abnormal electrocardiogram [ECG] [EKG]; I97.630 Postprocedural hematoma of a circulatory system organ or structure following a cardiac catheterization
CPT/HCPCS: 93926

== ENCOUNTER → 2022-06-21 12:31 | Outpatient (CLI) | payer MEDICARE, BC, SELFPAY ==
[2022-06-21 14:17] LABS: Alanine Aminotransferase 16 U/L (12-78); Albumin Level 3.8 g/dl (3.5-5.0); Alkaline Phosphatase 85 U/L (38-126); Aspartate Amino Transferase 28 U/L (14-36); Bilirubin,Indirect 0.2 mg/dL (0.0-0.9); Bilirubin,Total 0.2 mg/dl (0.2-1.3); Bilirubin,Unconjugated 0.4 mg/dL (0.0-1.1); Chol/HDL Ratio 4.3 (1-3.5); Cholesterol 152 mg/dl (140-200); HDL Cholesterol 35 mg/dl (40-60); Total Protein,Serum 5.8 g/dl (6.3-8.2); Triglycerides 200 mg/dl (30-150); VLDL Cholesterol 40 mg/dL (0-40)
[2022-06-21 14:29] LABS: Direct LDL Cholesterol 96.24 mg/dL (100-129)
== END ==
PROVIDERS: PCP Family Medicine; Visit Provider Nurse Practitioner
DX: R06.09 Other forms of dyspnea; R09.89 Other specified symptoms and signs involving the circulatory and respiratory systems; I25.118 Atherosclerotic heart disease of native coronary artery with other forms of angina pectoris; I27.20 Pulmonary hypertension, unspecified; I35.1 Nonrheumatic aortic (valve) insufficiency; E78.2 Mixed hyperlipidemia; I65.23 Occlusion and stenosis of bilateral carotid arteries; I70.1 Atherosclerosis of renal artery; I73.9 Peripheral vascular disease, unspecified; R94.31 Abnormal electrocardiogram [ECG] [EKG]; I11.0 Hypertensive heart disease with heart failure; I50.32 Chronic diastolic (congestive) heart failure
CPT/HCPCS: 36415; 80061; 80076; 93306

== ENCOUNTER → 2022-07-01 09:43 | Outpatient (CLI) | payer MEDICARE, BC, SELFPAY ==
[2022-07-01 10:54] LABS: Alanine Aminotransferase 18 U/L (12-78); Alkaline Phosphatase 88 U/L (38-126); Anion Gap 12.4 mEq/L (5-15); Aspartate Amino Transferase 27 U/L (14-36); Bilirubin,Indirect 0.5 mg/dL (0.0-0.9); Bilirubin,Total 0.5 mg/dl (0.2-1.3); Bilirubin,Unconjugated 0.6 mg/dL (0.0-1.1); Blood Urea Nitrogen 19 mg/dl (7-17); Calcium 9.5 mg/dl (8.4-10.2); Carbon Dioxide 27 mmol/L (22.0-30.0); Chloride 103 mmol/L (98-107); Chol/HDL Ratio 3.3 (1-3.5); Cholesterol 108 mg/dl (140-200); Estimated Glomerular Filt Rate 60 ml/min (>60); GFR (African American) 72 ML/MIN (>60); Glucose 96 mg/dl (74-100); HDL Cholesterol 33 mg/dl (40-60); Potassium 4.4 mmoL/L (3.5-5.1); Sodium 138 mmol/L (136-145); Triglycerides 99 mg/dl (30-150); VLDL Cholesterol 20 mg/dL (0-40)
[2022-07-01 11:05] LABS: Direct LDL Cholesterol 55.94 mg/dL (100-129)
== END ==
PROVIDERS: PCP Family Medicine; Visit Provider Physician Assistant
DX: E78.2 Mixed hyperlipidemia (principal); I11.0 Hypertensive heart disease with heart failure; I25.118 Atherosclerotic heart disease of native coronary artery with other forms of angina pectoris; I27.20 Pulmonary hypertension, unspecified; I50.32 Chronic diastolic (congestive) heart failure; I65.23 Occlusion and stenosis of bilateral carotid arteries; I70.1 Atherosclerosis of renal artery; I73.9 Peripheral vascular disease, unspecified; R94.31 Abnormal electrocardiogram [ECG] [EKG]; R06.09 Other forms of dyspnea
CPT/HCPCS: 36415; 80048; 80061; 80076

== ENCOUNTER → 2022-09-11 10:50 | Outpatient (CLI) | payer MEDICARE, BC, SELFPAY ==
[2022-09-11 11:11] LABS: Basophils % 0.6 % (0.1-2.0); Eosinophils # 0.2 K/mm3 (0.0-0.4); Eosinophils % 5.5 % (0.1-12.0); Hematocrit 42.8 % (37.0-47.0); Hemoglobin 12.9 g/dL (12.2-16.2); Lymphocytes # 0.8 K/mm3 (0.7-4.5); Lymphocytes % 23.5 % (10-50); Mean Corpuscular HGB Conc 30.1 g/dL (31.8-35.4); Mean Corpuscular Hemoglobin 33.7 pg (27.0-31.2); Mean Corpuscular Volume 111.7 fl (81-99); Monocytes # 0.3 K/mm3 (0.1-1.0); Monocytes % 7.7 % (1.7-9.3); Neutrophils # 2.1 K/mm3 (1.8-7.8); Neutrophils % 62.7 % (37.0-80.0); Platelet Count 251 K/mm3 (142-424); Red Blood Count 3.83 M/mm3 (4.20-5.40); Red Cell Distribution Width 15.4 % (11.5-17.5); White Blood Count 3.4 K/mm3 (4.8-10.8)
[2022-09-11 11:49] LABS: Alanine Aminotransferase 21 U/L (12-78); Albumin Level 4.1 g/dl (3.5-5.0); Alkaline Phosphatase 72 U/L (38-126); Anion Gap 14.8 mEq/L (5-15); Aspartate Amino Transferase 29 U/L (14-36); Bilirubin,Indirect 0.3 mg/dL (0.0-0.9); Bilirubin,Total 0.3 mg/dl (0.2-1.3); Bilirubin,Unconjugated 0.5 mg/dL (0.0-1.1); Blood Urea Nitrogen 17 mg/dl (7-17); Calcium 9.9 mg/dl (8.4-10.2); Carbon Dioxide 23 mmol/L (22.0-30.0); Chloride 105 mmol/L (98-107); Chol/HDL Ratio 3.6 (1-3.5); Cholesterol 107 mg/dl (140-200); Estimated Glomerular Filt Rate 60 ml/min (>60); GFR (African American) 72 ML/MIN (>60); Glucose 103 mg/dl (74-100); HDL Cholesterol 30 mg/dl (40-60); Magnesium 2.5 mg/dl (1.6-2.3); Potassium 4.8 mmoL/L (3.5-5.1); Sodium 138 mmol/L (136-145); Total Protein,Serum 6.1 g/dl (6.3-8.2); Triglycerides 118 mg/dl (30-150); VLDL Cholesterol 24 mg/dL (0-40)
[2022-09-11 12:00] LABS: Direct LDL Cholesterol 54.16 mg/dL (100-129)
[2022-09-11 12:29] LABS: Free T4 (Free Thyroxine) 0.91 ng/dl (0.78-2.19)
== END ==
PROVIDERS: PCP Family Medicine; Visit Provider Nurse Practitioner
DX: R06.09 Other forms of dyspnea; I25.118 Atherosclerotic heart disease of native coronary artery with other forms of angina pectoris; I11.9 Hypertensive heart disease without heart failure; R53.1 Weakness; R94.31 Abnormal electrocardiogram [ECG] [EKG]; I63.9 Cerebral infarction, unspecified; I65.23 Occlusion and stenosis of bilateral carotid arteries; E11.9 Type 2 diabetes mellitus without complications
CPT/HCPCS: 36415; 80048; 80061; 80076; 83735; 84439; 84443; 85025

== ENCOUNTER 2022-09-13 21:11 | Emergency (ER) | payer MEDICARE, BC, SELFPAY ==
[2022-09-13 21:12] VITALS: BP 205/92; PULSE 63; RESP 17; TEMP 36.8; O2SAT 97; BMI 20.5
--- NOTE | 2022-09-13 21:21 | ECG_ITS ---
APPROVED REPORT Exam: Resting ECG HR:64 bpm ECG Measurements Heart Rate 64 AXES [place] 208 P 55 QRSd 85 QRS -45 QT 413 T 61 QTc 423 Conclusion SINUS RHYTHM POSSIBLE RIGHT VENTRICULAR CONDUCTION DELAY [RSR (QR) IN V1/V2] LEFT ANTERIOR FASCICULAR BLOCK [QRS AXIS <= -45, QR IN I, RS IN II] SEPTAL MYOCARDIAL INFARCTION , PROBABLY OLD [40+ ms Q WAVE IN V1/V2] ABNORMAL ECG UNCONFIRMED REPORT Electronically signed by : Virgil Alcocer MD 09/14/2022 13:51:41
[2022-09-13 21:30] VITALS: BP 169/86; PULSE 61; RESP 15; O2SAT 99
[2022-09-13 21:40] LABS: Basophils % 0.6 % (0.1-2.0); Eosinophils # 0.2 K/mm3 (0.0-0.4); Eosinophils % 3.4 % (0.1-12.0); Hematocrit 44.4 % (37.0-47.0); Hemoglobin 13.6 g/dL (12.2-16.2); Lymphocytes # 1.2 K/mm3 (0.7-4.5); Lymphocytes % 20.2 % (10-50); Mean Corpuscular HGB Conc 30.5 g/dL (31.8-35.4); Mean Corpuscular Hemoglobin 34.1 pg (27.0-31.2); Mean Corpuscular Volume 111.6 fl (81-99); Mean Platelet Volume 7.8 fl (7.4-10.4); Monocytes # 0.6 K/mm3 (0.1-1.0); Monocytes % 9.7 % (1.7-9.3); Platelet Count 256 K/mm3 (142-424); Red Blood Count 3.98 M/mm3 (4.20-5.40); Red Cell Distribution Width 15.1 % (11.5-17.5)
--- NOTE | 2022-09-13 21:41 | HMH.EDGENADL ---
Discharge Plan Disposition Patient Disposition: Home, Self-Care Condition: Good Prescriptions Prescriptions: New nitrofurantoin monohyd/m-cryst [Macrobid] 100 mg capsule 100 mg PO BID 7 Days Qty: 14 0RF Rx Instructions: must administer with a meal/food No Action atorvastatin 20 mg tablet 20 mg PO HS levothyroxine 25 mcg tablet 25 mcg PO AM furosemide 20 mg tablet 20 mg PO DAILY metoprolol succinate 25 mg tablet extended release 24 hr 12.5 mg PO DAILY timolol maleate 0.5 % drops 1 drp Eye-Both HS brimonidine 0.15 % drops 1 drp Eye-Both DAILY Referrals Follow up/Referrals: Madiha Apodaca [Primary Care Provider] - See instructions Activity Restrictions/Add. Instructions Additional Instructions/Restrictions: At this time it was felt you are safe to be discharged home. New or worsening symptoms please not hesitate to return the emergency department. Please continue to follow-up with Dr. Bateman Sunday as discussed for continued titration of your blood pressure medications and possible recheck of your potassium. Please take your medications as prescribed. Clinical Impressions Clinical Impression: Acute UTI, Hyperkalemia, HTN (hypertension) Discharge ED Provider: Arsenio Martinez General Adult HPI General Chief complaint: Weakness Stated complaint: SOA Time Seen by Provider: 09/13/22 21:21 Mode of Arrival: Wheelchair Source of Information: Patient Limitations: No Limitations Description of Symptoms (Recalled from ER Triage Doc. by RN): 87 F presents from home with c/o low blood pressure, left hand pain, and overall fatigue. Patient unable to pinpoint exactly when symtpoms started; however, she does report her BP was 89 systolic this morning. Patient NAD otherwise. Adds that she feels short of air, but airway is patent and breathing is equal/unlabored History of Present Illness HPI narrative: Patient is a 87-year-old female with past medical history of hypertensive heart disease, renal artery stenosis status post stenting, coronary artery disease who presents to the emergency department for evaluation of blood pressure changes and weakness. Patient reportedly had lower blood pressure where she has been on multiple diuretics and beta-blockers for which she had medication change approximately 1 week ago. Since then she has noticed uptrending of her blood pressure and today she felt funny . When asked to further qualify this she states that she is diffusely weak. Denies chest pain, vomiting, visual acuity changes, leg swelling, or other acute complaints at this time. Related Data Home Medications Medication Instructions Recorded Confirmed atorvastatin 20 mg tablet 20 mg PO HS High Cholesterol 09/13/22 09/13/22 brimonidine 0.15 % eye drops 1 drp Eye-Both DAILY Glaucoma 09/13/22 09/13/22 furosemide 20 mg tablet 20 mg PO DAILY Fluid 09/13/22 09/13/22 levothyroxine 25 mcg tablet 25 mcg PO AM Thyroid 09/13/22 09/13/22 metoprolol succinate 25 mg 12.5 mg PO DAILY High Blood 09/13/22 09/13/22 tablet,extended release 24 hr Pressure timolol maleate 0.5 % eye drops 1 drp Eye-Both HS Eye pressure 09/13/22 09/13/22 Previous Rx's Medication Instructions Recorded nitrofurantoin 100 mg PO BID 7 days #14 caps 09/13/22 monohydrate/macrocrystals 100 mg capsule (Macrobid) Allergies Allergy/AdvReac Type Severity Reaction Status Date / Time cefdinir Allergy Mild Verified 06/20/22 10:14 codeine Allergy Mild Verified 06/20/22 10:14 erythromycin base [From Eryc] Allergy Mild Verified 06/20/22 10:14 Penicillins Allergy Mild Verified 06/20/22 10:14 Sulfa (Sulfonamide Allergy Mild Verified 06/20/22 10:14 Antibiotics) Wipogti-UVN-DwX Reductase AdvReac Mild Joint Pain Verified 06/20/22 10:14 Inhibitor PFSH PFS Disclaimer: The information contained in this section may have been updated after the patient was seen, as this information can be updated by other
[2022-09-13 21:48] LABS: Alanine Aminotransferase 22 U/L (12-78); Albumin Level 4.8 g/dl (3.5-5.0); Albumin/Globulin Ratio 1.8 (1.1-1.8); Alkaline Phosphatase 77 U/L (38-126); Anion Gap 15.6 mEq/L (5-15); Aspartate Amino Transferase 35 U/L (14-36); Bilirubin,Total 0.2 mg/dl (0.2-1.3); Blood Urea Nitrogen 27 mg/dl (7-17); Calcium 10.2 mg/dl (8.4-10.2); Carbon Dioxide 28 mmol/L (22.0-30.0); Chloride 98 mmol/L (98-107); Creatinine Clearance Estimated 32 mL/min (50-200); Estimated Glomerular Filt Rate 47 ml/min (>60); GFR (African American) 57 ML/MIN (>60); Globulin 2.7 g/dL (1.3-3.2); Glucose 98 mg/dl (74-100); Potassium 5.6 mmoL/L (3.5-5.1); Sodium 136 mmol/L (136-145); Total Protein,Serum 7.5 g/dl (6.3-8.2)
[2022-09-13 21:53] LABS: Coronavirus 19, PCR Not Detected (NotDetected); Influenza A, PCR Not Detected (NotDetected); Influenza B, PCR Not Detected (NotDetected); Microscopic, Urine URINE MICROSCOPIC (MICROSCOPIC)
[2022-09-13 21:54] LABS: Magnesium 2.5 mg/dl (1.6-2.3)
[2022-09-13 21:58] LABS: Appearance,Urine CLEAR (Clear); Bilirubin,Urine Negative (Negative); Blood, Urine Negative (Negative); Color,Urine YELLOW (Yellow); Glucose,Urine (UA) Negative (Negative); Ketones,Urine Negative (Negative); Leukocyte Esterase,Urine 1+ (Negative); Nitrate,Urine POSITIVE (Negative); Protein,Urine Negative (Negative); Specific Gravity, Urine 1.015 (1.005-1.030); Urobilinogen,Urine 0.2 EU/dl (0.2)
[2022-09-13 22:00] VITALS: BP 169/80; PULSE 61; RESP 15; O2SAT 98
[2022-09-13 22:03] LABS: Troponin I < 0.01 ng/ml (0.00-0.034)
[2022-09-13 22:30] VITALS: BP 176/81; PULSE 57; RESP 13; O2SAT 99
[2022-09-13 22:31] LABS: Bacteria,Urine 4+ /lpf; Squamous Epithelial Cell,Urine Occasional #/hpf (0-5)
[2022-09-13 23:02] VITALS: BP 163/90; PULSE 60; RESP 17; TEMP 36.8; O2SAT 99
== END 2022-09-13 23:17 | disposition home or self-care (01) ==
PROVIDERS: Emergency Provider Emergency Medicine; PCP Family Medicine
DX: N39.0 Urinary tract infection, site not specified (principal); E87.5 Hyperkalemia; I10 Essential (primary) hypertension; I65.29 Occlusion and stenosis of unspecified carotid artery; I20.9 Angina pectoris, unspecified; I73.9 Peripheral vascular disease, unspecified; I27.20 Pulmonary hypertension, unspecified
CPT/HCPCS: 80053; 81001; 83735; 84484; 85025; 87086; 87088; 87186; 87636; 93005; 96361; 96374; 96375; 99285

== ENCOUNTER → 2022-09-18 14:23 | Outpatient (CLI) | payer MEDICARE, BC, SELFPAY ==
[2022-09-18 15:29] LABS: Anion Gap 10.6 mEq/L (5-15); Blood Urea Nitrogen 17 mg/dl (7-17); Calcium 9.7 mg/dl (8.4-10.2); Carbon Dioxide 28 mmol/L (22.0-30.0); Chloride 102 mmol/L (98-107); Estimated Glomerular Filt Rate 60 ml/min (>60); GFR (African American) 72 ML/MIN (>60); Glucose 95 mg/dl (74-100); Potassium 4.6 mmoL/L (3.5-5.1); Sodium 136 mmol/L (136-145)
== END ==
PROVIDERS: PCP Family Medicine; Visit Provider Physician Assistant
DX: E78.5 Hyperlipidemia, unspecified (principal); I11.9 Hypertensive heart disease without heart failure; I25.10 Atherosclerotic heart disease of native coronary artery without angina pectoris; I27.20 Pulmonary hypertension, unspecified; I35.1 Nonrheumatic aortic (valve) insufficiency; I65.29 Occlusion and stenosis of unspecified carotid artery; I70.1 Atherosclerosis of renal artery; I73.9 Peripheral vascular disease, unspecified; R06.00 Dyspnea, unspecified; R09.89 Other specified symptoms and signs involving the circulatory and respiratory systems; R94.31 Abnormal electrocardiogram [ECG] [EKG]
CPT/HCPCS: 36415; 80048

== ENCOUNTER → 2022-09-25 10:36 | Outpatient (CLI) | payer MEDICARE, BC, SELFPAY | PROVIDERS: PCP Family Medicine; Visit Provider Physician Assistant | DX: R10.31 Right lower quadrant pain (principal); B96.29 Other Escherichia coli [E. coli] as the cause of diseases classified elsewhere | CPT/HCPCS: 87086; 87088; 87186 ==

== ENCOUNTER → 2022-09-28 07:41 | Outpatient (CLI) | payer MEDICARE, BC, SELFPAY ==
--- NOTE | 2022-09-28 07:42 | CT_ITS ---
FINAL REPORT TECHNIQUE: The patient was injected with IV contrast. Axial images were obtained through the chest in a PE protocol. 3-D reconstruction images were also performed. Individualized dose reduction techniques using automated exposure control or adjustment of the MA and/or KV according to patient's size were employed. CLINICAL HISTORY: suspect subclavian stenosis. COMPARISON: None FINDINGS: Mediastinal vasculature is adequately opacified. No pulmonary artery filling defects are identified to suggest PE. There is no aortic dissection. There is no axillary adenopathy. There is no hilar or mediastinal adenopathy. The heart size is normal. There is no pericardial or pleural effusion. The lungs are hyperinflated. There is mild basilar pulmonary scarring. There is a nodule at the medial right base measuring approximately 1.5 cm in greatest dimension. There is eccentric calcification in the lateral aspect of the nodule. There is a second nodule in the right lower lobe measuring 4 mm in greatest dimension seen on image 45 of series 3. There is thoracic scoliosis convex to the right of approximately 40 degrees. Imaging was obtained of the with the bilateral arms abducted. The right and left subclavian arteries are widely patent without significant stenosis. However, there appears to be a small kink or band in the artery at the junction of the subclavian and axillary artery seen on image 40 of series 601 and image 21 of series 3. There is mild calcification at the origin of the left common carotid artery. IMPRESSION: Widely patent origin of the left subclavian artery. Kink or band at the junction of the subclavian and axillary arteries. Nodules in the right lower lobe favored to be benign. However, given presence of eccentric calcification, follow-up CT in 6 months is recommended to ensure stability. Reviewed, Interpreted and Dictated by Timothy Downing MD Transcribed by Davida Crow Authenticated and [facility]
--- NOTE | 2022-09-28 07:42 | CT_ITS ---
FINAL REPORT TECHNIQUE: Pre-and postcontrast images of the abdomen were performed by computed tomography. Extensive 3-D reconstruction images were performed. A CTA was performed. This study was performed with techniques to keep radiation doses as low as reasonably achievable (ALARA). Individualized dose reduction techniques using automated exposure control or adjustment of mA and/or kV according to the patient''s size were employed. CLINICAL HISTORY: hx of renal artery stenosis with flucuating bp. COMPARISON: None FINDINGS: ABDOMEN: The liver is homogeneous. The gallbladder is contracted. There may be a few tiny stones within the lumen of the gallbladder. The spleen, pancreas, adrenals, and kidneys appear unremarkable. There is a large amount of stool throughout the colon. CTA: The abdominal aorta is patent. There is no evidence of aneurysmal dilatation. There appears to be a stent in the proximal right renal artery. The lumen of the vessel is somewhat obscured in the stented segment. There is mild vascular calcification at the origin of the left renal artery. There is about 50% stenosis in the proximal left renal artery. IMPRESSION: Abnormal calcification of the proximal renal arteries bilaterally with previously placed right renal stent. 50% stenosis proximal left renal artery. Poor visualization of the lumen of the proximal right renal artery. Catheter directed angiography is recommended for more precise characterization. Reviewed, Interpreted and Dictated by Timothy Downing MD Transcribed by Davida Crow Authenticated and [facility]
== END ==
PROVIDERS: PCP Family Medicine; Visit Provider Physician Assistant
DX: E78.5 Hyperlipidemia, unspecified (principal); I11.9 Hypertensive heart disease without heart failure; I25.10 Atherosclerotic heart disease of native coronary artery without angina pectoris; I27.20 Pulmonary hypertension, unspecified; I35.1 Nonrheumatic aortic (valve) insufficiency; I70.1 Atherosclerosis of renal artery; I73.9 Peripheral vascular disease, unspecified; R06.00 Dyspnea, unspecified; R09.89 Other specified symptoms and signs involving the circulatory and respiratory systems; R94.31 Abnormal electrocardiogram [ECG] [EKG]; I77.1 Stricture of artery
CPT/HCPCS: 71275; 74175; Q9967

== ENCOUNTER 2022-10-11 08:14 | Day surgery (SDC) | payer MEDICARE, BC, SELFPAY ==
[2022-10-11] VITALS (13 sets, daily range): BP systolic 121–158; BP diastolic 56–103; PULSE 47–61; RESP 15–18; O2SAT 96–99; BMI 21.6
--- NOTE | 2022-10-11 07:04 | IR_ITS ---
APPROVED REPORT Patient Location: Outpatient PROCEDURES Bilateral selective renal angiography INDICATION Known renal artery stenosis, Abnormal CTA, Renovascular hypertension Informed consent was obtained prior to the procedure. COMPLICATIONS NONE Estimated Blood Loss: LESS THAN 10 ML TECHNIQUE One percent lidocaine used to anesthetize the right anterior aspect of the wrist. The right radial artery was accessed via the Seldinger technique. A 6 Romanian sheath was placed in the right radial artery. 2.5 mg of Verapamil, 800 mcg of nitroglycerin, 1mg Lidocaine and 5000 U Heparin were given through the arterial sheath. The papa catheter was used to perform bilateral selective renal angiography. At the end the procedure the apparatus was removed the sheath was removed and hemostasis was achieved using TR banding patient was transferred to the postop holding area in stable condition. ANGIOGRAPHIC RESULTS Left renal artery singular and has a proximal 10 to 20% nonflow limiting stenosis Right renal artery singular has a stent in the ostial segment which is widely patent with mild concentric in-stent restenosis IMPRESSION Widely patent renal arteries bilaterally PLAN 1. Treatment of hypertension Electronically signed by : Ankur Bateman MD 10/11/2022 12:31:28
[2022-10-11 08:53] LABS: Basophils % 0.3 % (0.1-2.0); Eosinophils # 0.2 K/mm3 (0.0-0.4); Eosinophils % 5.6 % (0.1-12.0); Hematocrit 43.8 % (37.0-47.0); Hemoglobin 13.4 g/dL (12.2-16.2); Lymphocytes # 0.8 K/mm3 (0.7-4.5); Lymphocytes % 20.7 % (10-50); Mean Corpuscular HGB Conc 30.5 g/dL (31.8-35.4); Mean Corpuscular Hemoglobin 35.1 pg (27.0-31.2); Mean Corpuscular Volume 115.2 fl (81-99); Mean Platelet Volume 7.9 fl (7.4-10.4); Monocytes # 0.4 K/mm3 (0.1-1.0); Monocytes % 10.9 % (1.7-9.3); Neutrophils # 2.4 K/mm3 (1.8-7.8); Neutrophils % 62.4 % (37.0-80.0); Platelet Count 217 K/mm3 (142-424); Red Blood Count 3.81 M/mm3 (4.20-5.40); Red Cell Distribution Width 15.1 % (11.5-17.5); White Blood Count 3.8 K/mm3 (4.8-10.8)
[2022-10-11 09:04] LABS: Anion Gap 11.5 mEq/L (5-15); Blood Urea Nitrogen 17 mg/dl (7-17); Carbon Dioxide 26 mmol/L (22.0-30.0); Chloride 107 mmol/L (98-107); Creatinine Clearance Estimated 37 mL/min (50-200); Estimated Glomerular Filt Rate 60 ml/min (>60); GFR (African American) 72 ML/MIN (>60); Glucose 89 mg/dl (74-100); Potassium 4.5 mmoL/L (3.5-5.1); Sodium 140 mmol/L (136-145)
== END 2022-10-11 13:20 | disposition home or self-care (01) ==
PROVIDERS: PCP Family Medicine; Visit Provider Internal Medicine
DX: I70.1 Atherosclerosis of renal artery (principal); R93.5 Abnormal findings on diagnostic imaging of other abdominal regions, including retroperitoneum; I77.1 Stricture of artery; T82.858A Stenosis of other vascular prosthetic devices, implants and grafts, initial encounter; I27.20 Pulmonary hypertension, unspecified; I25.118 Atherosclerotic heart disease of native coronary artery with other forms of angina pectoris; I50.32 Chronic diastolic (congestive) heart failure; I11.0 Hypertensive heart disease with heart failure; I65.23 Occlusion and stenosis of bilateral carotid arteries
CPT/HCPCS: 36252; 80048; 85025; 99152; C1725; C1769; J1644; Q9967

== ENCOUNTER → 2022-11-29 10:19 | Outpatient (CLI) | payer MEDICARE, BC, SELFPAY ==
--- NOTE | 2022-11-29 10:23 | US_ITS ---
FINAL REPORT CLINICAL HISTORY: Pain/numbness RLE, never smoked, hx TIA/CVA, bilateral claudication, bilateral rest pain, bilateral skin color changes. COMPARISON: None FINDINGS: ANKLE-BRACHIAL PRESSURE INDICES Pressure indices are as follows: RIGHT LOWER EXTREMITY: Ankle-brachial pressure index: 1.0 Comments: Normal LEFT LOWER EXTREMITY: Ankle-brachial pressure index: 1.1 Comments: Normal IMPRESSION: No evidence of significant obstructive peripheral vascular disease of the lower extremities Reviewed, Interpreted and Dictated by Alan Soares III, MD Transcribed by Davida Crow Authenticated and [facility]
== END ==
PROVIDERS: PCP Family Medicine; Visit Provider Physician Assistant
DX: I73.9 Peripheral vascular disease, unspecified (principal)
CPT/HCPCS: 93923

== ENCOUNTER 2023-03-21 13:18 | Outpatient (CLI) | payer MEDICARE, BC, SELFPAY ==
--- NOTE | 2023-03-21 13:24 | CT_ITS ---
FINAL REPORT TECHNIQUE: Thin section axial CT images of the facial bones and sinuses were obtained without contrast. Coronal and sagittal reformatted images were also obtained.This study was performed with techniques to keep radiation doses as low as reasonably achievable, (ALARA). Individualized dose reduction techniques using automated exposure control or adjustment of mA and/or kV according to the patient's size were employed. CLINICAL HISTORY: PRIMARY OPEN ANGLE GLAUCOMA, LT EYE/SINUS PRESSURE COMPARISON: None FINDINGS: There is no evidence of mucosal thickening. No fluid levels are identified. The ostiomeatal units have an unremarkable appearance. The nasal septum is in the midline. No fracture or acute bony abnormality is identified. IMPRESSION: No focal abnormality identified of the sinuses. Reviewed, Interpreted and Dictated by Alan Soares III, MD Transcribed by Shara Murray Authenticated and . [facility]
--- NOTE | 2023-03-21 13:41 | CA_ITS ---
FINAL REPORT TECHNIQUE: Color Doppler, duplex Doppler and rankin scale sonography of the bilateral neck arterial vasculature was performed. Velocities were measured in the carotid arteries. Stenosis evaluation based on the validated velocity criteria. CLINICAL HISTORY: BRUNILDA FINDINGS: The peak systolic velocity of the right common carotid artery is 96 cm/s. The peak systolic velocity of the right internal carotid artery is 73 cm/s and end diastolic velocity 18 cm/s. The ICA/CCA ratio is 1.5. A small amount of plaque is present. The right external carotid artery is patent. The right vertebral artery is patent with antegrade flow. The peak systolic velocity of the left common carotid artery is 71 cm/s. The peak systolic velocity of the left internal carotid artery is 51 cm/s and end diastolic velocity 15 cm/s. The ICA/CCA ratio is 1.4. A small amount of plaque is present. The left external carotid artery is patent.The left vertebral artery is patent with antegrade flow. IMPRESSION: Less than 50% bilateral carotid stenoses. Bilateral patent vertebral arteries with antegrade flow. If indicated, CTA or MRA could further evaluate. Reviewed, Interpreted and Dictated by Alan Soares III, MD Transcribed by Vidya Valdovinos Authenticated and [facility]
== END 2023-03-21 23:59 ==
PROVIDERS: PCP Family Medicine; Visit Provider Family Medicine
DX: J34.89 Other specified disorders of nose and nasal sinuses (principal); H40.1122 Primary open-angle glaucoma, left eye, moderate stage; H40.1111 Primary open-angle glaucoma, right eye, mild stage; R09.89 Other specified symptoms and signs involving the circulatory and respiratory systems
CPT/HCPCS: 70486; 93880

== ENCOUNTER 2023-06-08 08:22 | Day surgery (SDC) | payer MEDICARE, BC, SELFPAY ==
[2023-06-08] VITALS (11 sets, daily range): BP systolic 125–159; BP diastolic 43–75; PULSE 52–65; RESP 16–20; TEMP 36.6; O2SAT 95–100; BMI 21.8
--- NOTE | 2023-06-08 07:03 | IR_ITS ---
APPROVED REPORT Patient Location: Outpatient PROCEDURES Left heart catheterization Left ventriculogram Selective coronary angiogram INDICATION Known coronary artery disease, Worsening angina pectoris Informed consent was obtained prior to the procedure. COMPLICATIONS NONE Estimated Blood Loss: LESS THAN 10 ML TECHNIQUE One percent lidocaine used to anesthetize the right anterior aspect of the wrist. The right radial artery was accessed via the Seldinger technique. A 6 [place] sheath was placed in the right radial artery. 2.5 mg of Verapamil, 800 mcg of nitroglycerin, 1mg Lidocaine and 5000 U Heparin were given through the arterial sheath. The papa catheter was also used to perform left heart catheterization, left ventriculogram and selective coronary angiogram. At the end of the procedure the sheath was removed good hemostasis was achieved using Traclet band, patient was transferred to the postop holding area in stable condition. ANGIOGRAPHIC RESULTS The left main artery Normal The left anterior descending artery Has proximal 10 to 20% stenoses with a stent which originates in the proximal segment and extends into the midportion which is widely patent free of in-stent restenosis with excellent proximal distal transitioning. There is an additional mid vessel stent which has mild 10 to 20% concentric in-stent restenosis with excellent proximal distal transitioning. Distally in the LAD there is a 70% stenosis along an extremely tortuous bend followed by an additional 50% stenosis along a distal and equally tortuous bend. The remaining LAD is corkscrew like as it approaches and wraps the apex. A large first diagonal artery has proximal to mid vessel tandem 50% stenoses. The circumflex artery Is nondominant and proximally normal. The circumflex artery then trifurcates into a small 1.25 mm vessel which has an ostial 90% stenosis. A larger 1.5 mm vessel is widely patent while an additional smaller 1.25 mm vessel is also normal. The right coronary artery Is dominant and has a mid vessel 40% eccentric stenosis with remaining vessel widely patent The WOOD ventriculogram reveals Normal to hyperdynamic at 70% The left ventricular end-diastolic pressure 15 mmHg IMPRESSION Coronary artery disease as described above all of which is best left medically managed at this point as patient has wide patency of the proximal and mid LAD Moderate to severe disease in the distal highly tortuous corkscrew LAD in which medical management is highly advised and avoiding any type of percutaneous intervention Hyperdynamic ventricle Severe disease in a first obtuse marginal artery which is also best managed medically Mildly elevated LVEDP PLAN 1. Maximize medical management 2. Risk factor modification Electronically signed by : Ankur Bateman MD 06/08/2023 12:27:07
[2023-06-08 08:56] LABS: Basophils % 0.9 % (0.1-2.0); Eosinophils # 0.2 K/mm3 (0.0-0.4); Eosinophils % 3.7 % (0.1-12.0); Hematocrit 48.8 % (37.0-47.0); Hemoglobin 15.2 g/dL (12.2-16.2); Lymphocytes # 0.7 K/mm3 (0.7-4.5); Lymphocytes % 18.2 % (10-50); Mean Corpuscular HGB Conc 31.1 g/dL (31.8-35.4); Mean Corpuscular Hemoglobin 34.8 pg (27.0-31.2); Mean Corpuscular Volume 111.9 fl (81-99); Mean Platelet Volume 8.2 fl (7.4-10.4); Monocytes # 0.4 K/mm3 (0.1-1.0); Neutrophils # 2.7 K/mm3 (1.8-7.8); Neutrophils % 67.2 % (37.0-80.0); Platelet Count 192 K/mm3 (142-424); Red Blood Count 4.36 M/mm3 (4.20-5.40); Red Cell Distribution Width 13.9 % (11.5-17.5); White Blood Count 4.1 K/mm3 (4.8-10.8)
[2023-06-08 09:59] LABS: Anion Gap 7.4 mEq/L (5-15); Blood Urea Nitrogen 19 mg/dl (7-17); Calcium 9.6 mg/dl (8.4-10.2); Carbon Dioxide 27 mmol/L (22.0-30.0); Chloride 109 mmol/L (98-107); Creatinine Clearance Estimated 39 mL/min (50-200); Estimated Glomerular Filt Rate 53 ml/min (>60); GFR (African American) 64 ML/MIN (>60); Glucose 93 mg/dl (74-100); Potassium 4.4 mmoL/L (3.5-5.1); Sodium 139 mmol/L (136-145)
[2023-06-08] MEDS: LIDOCAINE 1% 10ML MDV 20 ML IJ (12:00)
[2023-06-08] MEDS: HEPARIN 1,000 UNITS/ML 10ML VIAL (CATH LAB) 10000 UNIT IV (12:00)
[2023-06-08] MEDS: diphenhydrAMINE 50MG/ML VIAL 50 MG IV (12:00)
[2023-06-08] MEDS: HEPARIN 1,000 UNITS/500ML NS (CATH LAB) 3000 UNIT IV (12:00)
[2023-06-08] MEDS: 0.9 % SODIUM CHLORIDE 500 ML 25 ML IV (12:00)
[2023-06-08] MEDS: NITROGLYCERIN 800MCG/8ML SYR (CATH LAB) 800 MCG IA (12:01)
[2023-06-08] MEDS: VERAPAMIL 2.5MG/ML 2ML VIAL 2.5 MG IV (12:01)
[2023-06-08] MEDS: FENTANYL 250MCG/5ML VIAL 25 MCG IV (12:27)
[2023-06-08] MEDS: MIDAZOLAM HCL 1MG/1ML 5ML VIAL 1 MG IV (12:28)
[2023-06-08] MEDS: IOPAMIDOL-370 (76%);100ML BOTTLE 50 ML IV (12:56)
== END 2023-06-08 15:11 | disposition home or self-care (01) ==
PROVIDERS: PCP Family Medicine; Visit Provider Internal Medicine
DX: I27.20 Pulmonary hypertension, unspecified (principal); I65.23 Occlusion and stenosis of bilateral carotid arteries; R94.31 Abnormal electrocardiogram [ECG] [EKG]; I35.1 Nonrheumatic aortic (valve) insufficiency; E78.2 Mixed hyperlipidemia; I11.0 Hypertensive heart disease with heart failure; I50.32 Chronic diastolic (congestive) heart failure; I25.118 Atherosclerotic heart disease of native coronary artery with other forms of angina pectoris; R06.09 Other forms of dyspnea; I70.1 Atherosclerosis of renal artery; I77.1 Stricture of artery; Z79.899 Other long term (current) drug therapy; Z95.5 Presence of coronary angioplasty implant and graft; I70.201 Unspecified atherosclerosis of native arteries of extremities, right leg
CPT/HCPCS: 80048; 85025; 93458; 99152; C1725; C1769; J1644; Q9967

== ENCOUNTER 2023-06-15 07:50 | Outpatient (CLI) | payer MEDICARE, BC, SELFPAY ==
--- NOTE | 2023-06-15 08:17 | CA_ITS ---
APPROVED REPORT EXAM: Comprehensive 2D, Doppler, and color-flow Echocardiogram Hull Grinder: Yulissa Sarmiento RVT Ht: 5 ft 5 in Wt: 131lbs BSA: 1.65 BP: 139/69 mmHg Indications: CP,ABN EKG,PHTN,HTN,EDEMA,HLD,SOA,FATIGUE 2D Dimensions IVSd 1.51 cm F: 0.6-1.0 LVEF (Visual) 69.90 % PWd 0.81 cm F: 0.6 - 1.0 LA Volume 52.70 mL LVDd 3.68 cm F: 3.9 - 5.3 LA Volume Index 31.94 mL/m2 (M/F) 16-34 LVDs 2.26 cm F: 2.2 - 3.5 M-Mode Dimensions LA Diam 3.47 cm (1.9-4.0) TAPSE 1.47 (<1.7) LV Diastology E Decel Time 267 (160-240 msec) E/A Ratio 0.5 Aortic Valve NELLA Index 1.85 cm2/m2 AoV Peak Marcel. 136.0 (50-130 cm/s) AI PHT 945.00 ms AO Peak GR. 7.40 mmHg AO Mean GR. 4.00 (<5 mmHg) AO VTI 30.5 (18-25 cm) NELLA (VTI) 3.13 (2.5-4.5 cm2) Mitral Valve MV E Max Marcel. 41.0 (40-130 cm/s) MV A Velocity 86.0 (40-130 cm/s) E/A Ratio 0.48 MV PHT 78.0 ms Pulmonary Valve PV Peak Velocity 74.0 (50-150 cm/s) Tricuspid Valve TR P. Velocity 238.00 cm/s RAP Estimate 10.00 mmHg RVSP 32.70 mmHg Left Ventricle The left ventricle is normal size. The left ventricular systolic function is normal. The left ventricular ejection fraction is within the normal range. There is increased LV wall thickness. There is normal LV segmental wall motion. Transmitral Doppler flow pattern suggests impaired LV relaxation. LVEF is 55%. Right Ventricle Right ventricle is mildly dilated. Right ventricle is mildly hypokinetic. Atria Left atrium is moderately dilated. Right atrium is moderately dilated. There is no Doppler evidence of interatrial shunt. Aortic Valve The aortic valve is mildly thickened. The aortic valve is trileaflet. There is no aortic valvular stenosis. Mild aortic regurgitation. Mitral Valve The mitral valve leaflets are mildly thickened. No evidence of mitral valve stenosis. Mild mitral regurgitation. Tricuspid Valve The tricuspid valve leaflets are thin and pliable. Mild tricuspid regurgitation. RVSP is 20-25 mmHg. Pulmonic Valve The pulmonary valve is normal in structure. Mild pulmonic regurgitation. Great Vessels The aortic root is normal in size. The ascending aorta is normal in size. IVC is normal in size and collapses >50% with inspiration. Pericardium There is no pericardial effusion. Other Information Study Quality: Fair Conclusion Normal LV systolic function. Mild RV dilation with mild reduction in RV function. Biatrial dilation. Mild AI, mild MR, mild TR, mild PI. RVSP 20-25 mmHg. Electronically signed by : Meryl Salazar MD 06/18/2023 13:24:55
== END 2023-06-15 23:59 | disposition home or self-care (01) ==
LOC: RT 07:51
PROVIDERS: Visit Provider Physician Assistant
DX: R06.09 Other forms of dyspnea; I25.118 Atherosclerotic heart disease of native coronary artery with other forms of angina pectoris; I73.9 Peripheral vascular disease, unspecified; I77.1 Stricture of artery; I70.1 Atherosclerosis of renal artery; I11.0 Hypertensive heart disease with heart failure; I50.32 Chronic diastolic (congestive) heart failure; E78.2 Mixed hyperlipidemia; I35.1 Nonrheumatic aortic (valve) insufficiency; I27.20 Pulmonary hypertension, unspecified; R94.31 Abnormal electrocardiogram [ECG] [EKG]; I65.23 Occlusion and stenosis of bilateral carotid arteries
CPT/HCPCS: 93306

== ENCOUNTER 2024-06-18 13:40 | Outpatient (CLI) | payer MEDICARE, BC, SELFPAY ==
[2024-06-18 14:50] LABS: Basophils % 0.7 % (0.1-2.0); Eosinophils # 0.1 Kmm3 (0.0-0.4); Eosinophils % 2.1 % (0.1-12.0); Hematocrit 46.3 % (37.0-47.0); Hemoglobin 15.4 g/dL (12.2-16.2); Immature Granulocytes # 0.02 10^3uL; Immature Granulocytes % 0.3 %; Lymphocytes # 0.8 K/mm3 (0.7-4.5); Lymphocytes % 13.6 % (10-50); Mean Corpuscular HGB Conc 33.3 g/dL (31.8-35.4); Mean Corpuscular Hemoglobin 34.8 pg (27.0-31.2); Mean Corpuscular Volume 104.8 fl (81-99); Mean Platelet Volume 10.2 fl (7.4-10.4); Monocytes # 0.6 K/mm3 (0.1-1.0); Monocytes % 10.1 % (1.7-9.3); Neutrophils # 4.2 K/mm3 (1.8-7.8); Neutrophils % 73.2 % (37.0-80.0); Nucleated Red Blood Cells # 0 10^3/uL; Nucleated Red Blood Cells % 0 %; Platelet Count 191 K/mm3 (142-424); Red Blood Count 4.42 M/mm3 (4.20-5.40); Red Cell Distribution Width 13.5 % (11.5-17.5); Red Cell Distribution Width-SD 53.1 fL; White Blood Count 5.7 K/mm3 (4.8-10.8)
[2024-06-18 15:09] LABS: Anion Gap 9.6 mEq/L (5-15); Blood Urea Nitrogen 25 mg/dl (7-17); Calcium 10.1 mg/dl (8.4-10.2); Carbon Dioxide 29 mmol/L (22.0-30.0); Chloride 105 mmol/L (98-107); Estimated Glomerular Filt Rate 53 ml/min (>60); GFR (African American) 64 ML/MIN (>60); Glucose 91 mg/dl (74-100); Potassium 4.6 mmoL/L (3.5-5.1); Sodium 139 mmol/L (136-145)
== END 2024-06-18 23:59 | disposition home or self-care (01) ==
LOC: LAB 13:41
PROVIDERS: PCP Family Medicine; Visit Provider Nurse Practitioner
DX: I11.9 Hypertensive heart disease without heart failure (principal); I25.10 Atherosclerotic heart disease of native coronary artery without angina pectoris; I73.9 Peripheral vascular disease, unspecified; E78.5 Hyperlipidemia, unspecified
CPT/HCPCS: 36415; 80048; 85025

== ENCOUNTER 2024-06-23 11:09 | Outpatient (CLI) | payer MEDICARE, BC, SELFPAY ==
--- OUTSIDE RECORDS SUMMARY | 2024-06-23 11:15 | XMS_ITS | Data Portability ---
Author Organization [facility] ADMIN Address [address] [place] [id number] Assessment No assessment recorded. Plan of Treatment Reminders Order Date Submit Date Provider Last Modified By Organization Details Last Modified Time Details Appointments None record ed. Lab None record ed. Referral None record ed. Procedures None record ed. Surgeries None record ed. Imaging None record ed. Medication Orders None record ed. Patient TargetsNo targets recorded. Patient InstructionsNo instructions recorded. Reason for Referral None Reported. 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 Not Available [facility] 2 13:37:12 Coronary arteriosc lerosis 55173737 Active Coronary artery disease Not Available [facility] 2 13:37:12 Weight decreased 604765745 Active 2015 Not Available [facility] 2 13:37:12 Hypercalc emia 47500804 Active 2015 Not Available [facility] 2 13:37:12 Chronic idiopathi c constipat ion 37616550 Active 2019 Not Available [facility] 2 13:37:12 Solitary nodule of lung 483718727 Active 2018 Solitary nodule of lung Not Available [facility] 2 13:37:12 Pain of left eye 33154757969 9104 Active 2016 Not Available [facility] 2 13:37:12 Constipat ion 77040348 Active 2019 Not Available [facility] 2 13:37:13 Hypertens bryan disorder 59245646 Active Hypertens ion Not Available [facility] 2 13:37:13 Iron deficienc y anemia 17117815 Active 2019 Not Available [facility] 2 13:37:13 Dyspnea on exertion 04243523 Active 2015 Not Available [facility] 2 13:37:13 Hyperlipi demia 16929973 Active Hyperlipi demia Not Available [facility] 2 13:37:13 Problem Notes None recorded. Procedures Surgical History Date Name Laterality Status Provider Name and Address Organization Details Recorded Time biopsy of breast completed Darryl Carrizales [facility] [place] 11/03/2021 13:55:24 tonsillectomy completed Darryl Carrizales MARQU[facility] & [place] 11/03/2021 13:55:32 thyroidectomy completed Darryl Carrizales [facility] & [place] 11/03/2021 13:55:38 Imaging Results None recorded. Procedure Notes None recorded. Medical Equipment None Reported. Allergies Allergen ID Allergen Name Allergen Category Reaction Reaction Severity Criticality Documentation Date Start Date Code Code System Note Provider Name and Address Organization Details Recorded Time Product containin g penicilli n (product) medicatio n Not available Not available Not available 11/03/2021 88368 8001 SNOMED Darryl Valenzuelayulisa [facility] [place], [place] - [facility] & [place] 2 13:49:08 4292 cefdinir medicatio n Not available Not available Not available 10/13/2021 74762 RxNorm Not Available [facility] 2 22:30:56 4294 codeine medicatio n Not available Not available Not available 10/13/2021 2670 RxNorm Not Available [facility] 2 22:30:56 4296 erythromy refugio medicatio n Not available Not available Not available 10/13/2021 4053 RxNorm Not Available [facility] 22:30:57 Medications Name Sig Start Date Stop Date Status Note LastModified by Organization Details LastModified Time losartan 50 mg tablet 11/03 completed Not Available Not Available Not Available latanoprost 0.005 % eye drops active Not Available Not Available Not Available atorvastatin 40 mg tablet 11/03 completed Not Available Not Available Not Available prednisone 20 mg tablet 11/03 completed Not Available Not Available Not Available isosorbide mononitrate ER 30 mg tablet,extended release 24 hr active Not Available Not Availabl e Not Available ciprofloxacin 500 mg tablet 11/03 completed Not Available Not Available Not Available spironolactone 25 mg tablet active Not Available Not Available Not Available levothyroxine 25 mcg tablet active Not Available Not Available N ot Available famotidine 20 mg tablet 11/03 completed Not Available Not Available Not Available meclizine 25 mg tablet PRN active Not Available Not Available Not Available Lasix 20 mg tablet active Not Available Not Available Not Available pantoprazole 40 mg tablet,delayed release 11/03 completed Not Available Not Available Not Available aspirin 81 mg chewable tablet active Not Available Not Availa ble Not Available metoprolol succinate ER 25 mg tablet,extended release 24 hr active Not Available Not Availabl e Not Available albuterol sulfate HFA 90 mcg/actuation aerosol inhaler PRN 2020 active Not Available Not Available Not Avai lable losartan 100 mg tablet 11/03 completed Not Available Not Available Not Available PreserVision AREDS 2,148 mcg-113 mg-45 mg-17.4 mg tablet active Not Available Not Available Not Available timolol maleate (PF) 0.5 % eye drops in a dropperette active Not Available Not Available Not Available ranolazine ER 500 mg tablet,extended release,12 hr 11/03 completed Not Available Not Available Not Available Combigan 0.2 %-0.5 % eye drops 11/03 completed Not Available Not Available Not Available Vitals Date Recorded Body height Body mass index (BMI) Body weight Body temperature Oxygen saturation Oxygen saturation in Arterial blood by Pulse oximetry Heart rate Systolic blood pressure Diastolic blood pressure Provider Name and Address Organization Details Last Updated DateTime 2 165.1 cm 21.1 kg/m2 03511.4 3 g 90.1 [degF] 99 % 99 % 51 /min 132 mm[Hg] 63 mm[Hg] Darryl Nicolasyulisa [facility] & [place] 2 13:52:03 Social History None recorded. Functional Status Question Answer Note LastModified by Organizat ion Details LastModified Time Do you use any illicit or recreational drugs? No Information not available 11/03/2021 What is your level of alcohol consumption? None Information not available 11/03/2021 Mental Status None recorded. Family History Nothing Reported. Medical History Condition Response Thyroid Disease Y Hypertension Y Gynecological HistoryNo gynecological history recorded. Obstetrics History GPAL:G 0 P 0 0 0 0 Immunizations Vaccine Type Date Status Note Provider Nam e and Address Organization Details Recorded Time Influenza, adjuvanted, quadrivalent, PF 11/02/2020 completed Not Available [facility] 2 11:34:30 Influenza, adjuvanted, quadrivalent, PF 11/04/2021 completed Darryl Carrizales [facility] & [place] 11/04/2021 08:18:43 Past Encounters Encounter ID Performer Location Encounter Start Date Encounter Closed Date Diagnosis/Indication Diagnosis SNOMED-CT Code Diagnosis ICD10 Code Diagnosis Note [id number] Sarina Lopez MD [facility] [address] [facility] [place] [address] 11/03/2021 13:38:51 11/03/2021 14:14:38 Dyspnea on exertion 51008319 R06.09 Patient recommende d to exercise as tolerated and use her Cleo on a p.r.n. basis. Nodule of lung 756121356 R91.1 Patient had the lung nodule stable for more than 2 years so will follow-up patient symptoms and she is instructed to call if there is any new changes. Administra tion of influenza vaccine 80992062 Z23 Will administer flu vaccine in the office today. Health Concerns Section Related Observation LastModified by Organization Detai ls LastModified Time None Recorded Concern Status LastModified by Organization Details LastModified Time None Recorded Advance Directives Directive None Recorded Payers Insurance Date Sequence Insurance Name Policy Number Policy Ricketts Covered Member ID Ricketts Member ID Guarantor Name 10/31/2021 1 [place] Jenelle Mathur [id number] 10/31/2021 2 [place] [id number] Jenelle Mathur [id number] 20 Notes Date Note Type Note Provider Name and Address Organization Details Recorded Time 11/03/2021 text/html Patient presents to the office today for follow-up visit. Patient states that she is doing well. She denies shortness of breath at rest or dyspnea exertion. She did not use her Cleo for few weeks. She denies fever, chills or diaphoresis. No chest pain, angina or palpitation. No PND or orthopnea. Patient denies wheezing or hemoptysis. Patient denies significant change in her weight or appetite. Sarina Lopez MD [address] [facility], [place], [address], [facility] [place] & [place] 11/03/2021 14:34:38 OBGyn Episode No OBEpisode recorded.
--- NOTE | 2024-06-23 11:30 | US_ITS ---
FINAL REPORT CLINICAL HISTORY: claudication, CAD, bilateral rest pain, previous MATHEUS 11/29/22 (Rt MATHEUS=1.0, Lt MATHEUS=1.1). COMPARISON: None FINDINGS: ANKLE-BRACHIAL PRESSURE INDICES Pressure indices are as follows: RIGHT LOWER EXTREMITY: Ankle-brachial pressure index: 1.0 Comments: Normal LEFT LOWER EXTREMITY: Ankle-brachial pressure index: 1.1 Comments: Normal CONCLUSION: No evidence of significant obstructive peripheral vascular disease of the lower extremities. Reviewed, Interpreted and Dictated by Timothy Downing MD Transcribed by Shara Murray Authenticated and [facility]
== END 2024-06-23 23:59 | disposition home or self-care (01) ==
LOC: RT 11:12
PROVIDERS: PCP Family Medicine; Visit Provider Nurse Practitioner
DX: I73.9 Peripheral vascular disease, unspecified (principal); I10 Essential (primary) hypertension; I25.10 Atherosclerotic heart disease of native coronary artery without angina pectoris; E78.5 Hyperlipidemia, unspecified
CPT/HCPCS: 93923

== ENCOUNTER 2025-01-13 14:36 | Emergency (ER) | payer MEDICARE, BC, SELFPAY ==
--- NOTE | 2025-01-13 14:37 | ECG_ITS ---
APPROVED REPORT Exam: Resting ECG HR:59 bpm ECG Measurements Heart Rate 59 AXES AK 194 P 62 QRSd 87 QRS 79 QT 463 T 74 QTc 463 Conclusion SINUS BRADYCARDIA WITH OCCASIONAL SUPRAVENTRICULAR PREMATURE COMPLEXES POSSIBLE RIGHT VENTRICULAR CONDUCTION DELAY [RSR (QR) IN V1/V2] No STEMI Electronically signed by : GIOVANA JARAMILLO, 01/15/2025 03:17:52
[2025-01-13 14:58] VITALS: BMI 20.7
[2025-01-13 14:59] VITALS: BP 156/72; PULSE 62; RESP 16; TEMP 36.9; O2SAT 96; BMI 20.7
[2025-01-13 15:00] VITALS: BP 117/57; RESP 20; O2SAT 98
--- NOTE | 2025-01-13 15:06 | XR_ITS ---
PROCEDURE INFORMATION: Exam: XR Chest Exam date and time: 01/13/2025 3:10 PM Age: 89 years old Clinical indication: Pain; Other: Cp TECHNIQUE: Imaging protocol: Radiologic exam of the chest. Views: 1 view. COMPARISON: CT ANGIO CHEST 09/28/2022 8:31 AM FINDINGS: Lungs: Stigmata of old granulomatous disease. Mild scarring and atelectasis in the lower lungs. Pleural spaces: Unremarkable. No pleural effusion. No pneumothorax. Heart/Mediastinum: Cardiomegaly. Vasculature: Vascular calcifications. Bones/joints: Unremarkable. IMPRESSION: No acute findings.
--- NOTE | 2025-01-13 15:06 | ED_ITS ---
<Statement entered by Juan Mckeon MD - 01/14/25 11:37> I was consulted by the FARIDA, and we discussed the complexity of problems being addressed. I approved the treatment and management plan for this patient's care in the emergency department, thus performing a substantial portion of the medical decision making. Juan Mckeon MD Discharge Plan Disposition Patient Disposition: Home, Self-Care Prescriptions Prescriptions: New lidocaine [Lidoderm] 5 % adhesive patch,medicated 1 patch topical DAILY 7 Days Qty: 7 0RF Rx Instructions: leave on most painful area for up to 12 hrs No Action aspirin 81 mg tablet 81 mg PO DAILY cholecalciferol (vitamin D3) 25 mcg (1,000 unit) capsule 25 mcg PO Q OTHER DAY spironolactone 25 mg tablet See Rx Instructions .ROUTE .COMPLEX Qty: 180 3RF Dose Instruction: TAKE 1 TABLET BY MOUTH TWICE DAILY FOR FLUID RETENTION Rx Instructions: TAKE 1 TABLET BY MOUTH TWICE DAILY FOR FLUID RETENTION levothyroxine 25 mcg tablet 25 mcg PO AM furosemide 20 mg tablet 20 mg PO DAILY brimonidine 0.15 % drops 1 drp Eye-Both DAILY Referrals Follow up/Referrals: Carroll Fabian DO [Staff Physician, Orthopedics] - See instructions Madiha Apodaca [Primary Care Provider, Medical] - See instructions Activity Restrictions/Add. Instructions Additional Instructions/Restrictions: Today you were evaluated in the emergency department. You had a negative cardiac workup. Please rest, use Lidoderm patches, you may take acetaminophen or ibuprofen [id number] as directed. Please follow-up with your PCP within 7 days. Return to the ED for any worsening of your condition Clinical Impressions Clinical Impression: Left shoulder pain, Fall, Chest pain Instructions Patient Instructions: DI for Chest Pain Print Language Print Language: Swedish Discharge ED Provider: Juan Mckeon HPI <Wendy Parrish APRN - Last Filed: 01/13/25 21:44> General Chief Complaint: Chest Pain Stated Complaint: Fall Time Seen by Provider: 01/13/25 14:52 Mode of Arrival: Wheelchair Source of Information: Patient Description of Symptoms (Recalled from ER Triage Doc. by RN): patient states she fell out of chair today while wrappping presets. landing on buttocks. she denies hitting head. denies LOC. she aslso reports left sided chest pain that is sharp. 7/10 pain. History of Present Illness HPI narrative: patient is an 89-year-old female PMHx HTN, CAD, hypertensive heart disease, diastolic dysfunction, carotid artery stenosis, history of abnormal stress test, peripheral artery disease who presents to the ED for complaints of chest pain and left shoulder pain that occurred after a fall yesterday. Patient states she was wrapping presents when she went to sit in a chair, the chair moved back, causing her to land on her buttocks. Patient states while she was landing on her buttocks she tried to catch herself with bilateral upper extremities. Related Data Home Medications ?Medication ?Instructions ?Recorded ?Confirmed brimonidine 0.15 % eye drops 1 drp Eye-Both DAILY Glau coma 09/13/22 07/17/24 furosemide 20 mg tablet 20 mg PO DAILY Fluid 3 07/17/24 levothyroxine 25 mcg tablet 25 mcg PO AM Thyroid 09/1307/17/24 aspirin 81 mg tablet 81 mg PO DAILY Heart Disease 09/18/22 07/17/24 cholecalciferol (vitamin D3) 25 25 mcg PO Q OTHER DAY Supplement 07/17/24 07/17/24 mcg (1,000 unit) capsule Previous Rx's ?Medication ?Instructions ?Recorded spironolactone 25 mg tablet See Rx Instructions .Route 09/10/24 .COMPLEX #180 tabs lidocaine 5 % topical patch 1 patch topical DAILY 7 da ys #7 ea 01/13/25 (Lidoderm) Allergies Allergy/AdvReac Type Severity Reaction Status Date / Time cefdinir Allergy Mild Verified 07/17/24 13:20 codeine Allergy Mild Verified 07/17/24 13:20 erythromycin base (From Eryc) Allergy Mild Verified 07/17/24 13:20 Penicillins Allergy Mild Verified 07/17/24 13:20 Sulfa (Sulfonamide Allergy Mild Verified 07/17/24 13:20 Antibiotics) [id number] Reductase AdvReac Mild Joint Pain Verified 07/17/24 13:20 Inhibitor [facility] <Wendy Parrish APRN - Last Filed: 01/13/25 21:44> [facility] Disclaimer: The information contained in this section may have been updated after the patient was seen, as this information can be updated by other users. Medical History Chest pain Typical angina Abnormal computed tomography angiography (CTA) of abdomen Subclavian arterial stenosis Renal artery stenosis right renal artery stenting. PAD (peripheral artery disease) Right arm fracture H/O nephrolithotomy with removal of calculi Blunt chest trauma Abnormal EKG Carotid artery stenosis Abnormal stress test Dyspnea Pulmonary hypertension Edema Surgical History H/O left breast biopsy History of coronary artery stent placement H/O adenoidectomy History of tonsillectomy Family History Other Coronary artery disease Heart attack Social History Smoking Status: Never smoker alcohol intake: never substance use type: denies use current occupational status: retired Travel in the last 8 weeks?: None household members: none housing: house current occupational exposures/hazards: No caffeine: Yes Have you lived/traveled outside US in past 30 days?: No Contact w/someone who lives/traveled outside US past 30 days?: No Exposure to someone with infectious disease in past 14 days?: No Do you have a fever (greater than 100.4 F or 38 C)?: No Have you tested positive for COVID-19?: No Exposed to someone with COVID-19 in past 14 days?: No Do you have a sore throat?: No Do you have a cough?: No Do you have any weakness?: No Do you have any diarrhea?: No Are you experiencing any unusual bleeding?: No Do you have any muscle aches/pain?: No Do you have any abdominal pain?: No Are you experiencing loss of taste or smell?: No Other Medical History Have you received the Flu Vaccine for this season: No Have you received the Pneumonia Vaccine: Yes <Wendy Parrish APRN - Last Filed: 01/13/25 21:44> ROS Obtained: Yes Systems reviewed as appropriate & no additional complaints except as documented Physical Exam <Wendy Parrish APRN - Last Filed: 01/13/25 21:44> General General appearance: alert Head Head exam: atraumatic Eye Eye exam: Present PERRL Neck Neck exam: Present full ROM Chest Chest inspection: Present normal inspection Respiratory Respiratory exam: Present normal lung sounds bilaterally Cardiovascular Cardiovascular exam: Present regular rate Abdominal Exam Abdominal exam: Present soft; Absent tenderness Extremities Exam Extremities exam: Present other (Left anterior shoulder tenderness, decreased ROM due to pain, difficulty with extension due to pain, neurovascular status intact) Neurological Exam Neurological exam: Present alert and oriented X3 Skin Skin exam: Present warm and dry HEART Score <Wendy Parrish APRN - Last Filed: 01/13/25 21:44> HEART Score HEART Score assessment performed?: No Critical Care <Wendy Parrish APRN - Last Filed: 01/13/25 21:44> Critical Care Time Critical Care Time: No Medical Decision Making <Wendy Parrish APRN - Last Filed: 01/13/25 21:44> Ravi Inquiry Pt receiving controlled substance: No Vital Signs Vital Signs: 01/13/25 14:59 01/13/25 15:00 01/13/25 16:50 Temperature 98.5 F Temperature Source Oral Pulse Rate 60 Pulse Rate [Right Radial] 62 Respiratory Rate 16 20 15 Blood Pressure 117/57 L 145/68 H Blood Pressure [Right Arm] 156/72 H Blood Pressure Mean [Right Arm] 100 Blood Pressure Source Blood Pressure Source [Right Arm] Automatic Cuff Blood Pressure Position Blood Pressure Position [Right Arm] Sitting 02 Sat by Pulse Oximetry 96 98 98 Oxygen Delivery Method Room Air Room Air Room Air 01/13/25 17:00 01/13/25 19:00 Temperature 98.4 F Temperature Source Oral Pulse Rate 75 Pulse Rate [Right Radial] Respiratory Rate 19 16 Blood Pressure 138/71 179/81 H Blood Pressure [Right Arm] Blood Pressure Mean [Right Arm] Blood Pressure Source Automatic Cuff Blood Pressure Source [Right Arm] Blood Pressure Position Sitting Blood Pressure Position [Right Arm] 02 Sat by Pulse Oximetry 98 Oxygen Delivery Method Room Air Room Air Lab Data Labs: Lab Results 01/13/25 14:51: WBC 5.8, RBC 4.00 L, Hgb 13.7, Hct 42.7, MCV 106.8 H, MCH 34.3 H , MCHC 32.1, RDW 13.7, Plt Count 144, MPV 10.6 H, Neut % (Auto) 80.1 H, Lymph % (Auto) 9.7 L, Randall % (Auto) 7.7, Eos % (Auto) 0.9, Baso % (Auto) 0.7, Neut # (Auto) 4.6, Lymph # (Auto) 0.6 L, Randall # (Auto) 0.4, Eos # (Auto) 0.1, Baso # (Auto) 0.0, Sodium 138, Potassium 4.1, Chloride 102, Carbon Dioxide 25, Anion Gap 15.1 H, BUN 19 H, Creatinine 0.90, Estimated Creat Clear 34, Estimated GFR 59, Est GFR ( Amer) 72, Glucose 127 H, Calcium 9.9, Total Bilirubin 0.7, AST 32, ALT 22, Alkaline Phosphatase 83, Troponin I < 0.01, Total Protein 6.6, Albumin 4.2, Globulin 2.4, Albumin/Globulin Ratio 1.8, HCV Ab ABHIJEET w/Rflx PCR Qn Negative, HIV Ag/Ab Combo Qual Negative 01/13/25 17:36: Troponin I 0.01 01/13/25 14:51 01/13/25 14:51 Response Orders (Tests/Meds): ED MEDICATIONS Discontinued Medications Generic Name Dose Route Start Last Admin Trade Name Freq PRN Reason Stop Dose Admin Acetaminophen 1,000 mg 01/13/25 15:06 01/13/25 15:18 Acetaminophen 500mg Tab PO 01/13/25 15:07 1,000 mg ONCE ONE Administration Aspirin 324 mg 01/13/25 15:02 01/13/25 15:18 Aspirin 81mg Chewable Tablet PO 01/13/25 15:03 324 mg ONCE ONE Administration Lidocaine 1 each 01/13/25 17:18 01/13/25 17:29 Lidocaine 5% Transdermal Patch TD 01/13/25 17:19 1 each ONCE ONE Administration Nitroglycerin 0.4 mg 01/13/25 15:02 Nitroglycerin 0.4mg Sl Tablet SL 01/14/25 15:02 Q5MINP PRN Chest Pain ORDERS Category Date Time Status CXR --portable [XR chest portable] Stat Exams 01/13/25 15:06 Completed Shoulder XR left minimum 2 views [XR shoulder LT min 2V Exams 01/13/25 15:06 Completed ] Stat Complete Blood Count Auto Diff Stat Lab 01/13/25 14:51 Completed Comprehensive Metabolic Panel Stat Lab 01/13/25 14:51 Completed HIV Combo Stat Lab 01/13/25 14:51 Completed Hepatitis C Ab Qual. W/ RFX Stat Lab 01/13/25 14:51 Completed Troponin I Q3H Lab 01/13/25 17:36 Completed Troponin I Stat Lab 01/13/25 14:51 Completed MDM Narrative Medical Decision Narrative: In summary, patient is an 89-year-old female PMHx HTN, CAD, hypertensive heart disease, diastolic dysfunction, carotid artery stenosis, history of abnormal stress test, peripheral artery disease who presents to the ED for complaints of chest pain and left shoulder pain that occurred after a fall yesterday. Patient states she was wrapping presents when she went to sit in a chair, the chair moved back, causing her to land on her buttocks. Patient states while she was landing on her buttocks she tried to catch herself with bilateral upper extremities. She states that since this occurred, she has been having left shoulder pain. She has pain in her left shoulder with range of motion. Denies fever, headache, visual changes, neck pain, back pain, shortness of breath, abdominal pain, nausea, vomiting. Differential diagnosis include ACS, pneumonia, pneumothorax, infectious process, fracture, sprain, ligamentous injury, among others. Upon initial evaluation patient is alert, oriented and cooperative. She is stable. Physical exam remarkable for no chest wall tenderness. Left anterior shoulder tenderness upon palpation. Decreased range of motion in the left shoulder due to pain, unable to fully extend. Patient symptomatically managed with acetaminophen and Lidoderm patch. CBC unremarkable for any leukocytosis, stable H&H. CMP unremarkable for any actionable abnormalities. First troponin < 0.01. Second trop 0.01. Upon reassessment, her condition has improved. She states her pain has improved. I discussed with her that so far her workup is unremarkable and that she has most likely injured her left shoulder during the fall. Advised her to ice the area, take Tylenol or Motrin [id number] as directed and to follow- up with orthopedics in 1 week if no improvement. We will obtain a second troponin and patient will be discharged home. <Juan Mckeon MD - Last Filed: 01/13/25 16:13> Vital Signs Vital Signs: 01/13/25 14:59 01/13/25 15:00 01/13/25 16:50 Temperature 98.5 F Temperature Source Oral Pulse Rate 60 Pulse Rate [Right Radial] 62 Respiratory Rate 16 20 15 Blood Pressure 117/57 L 145/68 H Blood Pressure [Right Arm] 156/72 H Blood Pressure Mean [Right Arm] 100 Blood Pressure Source Blood Pressure Source [Right Arm] Automatic Cuff Blood Pressure Position Blood Pressure Position [Right Arm] Sitting 02 Sat by Pulse Oximetry 96 98 98 Oxygen Delivery Method Room Air Room Air Room Air 01/13/25 17:00 01/13/25 19:00 Temperature 98.4 F Temperature Source Oral Pulse Rate 75 Pulse Rate [Right Radial] Respiratory Rate 19 16 Blood Pressure 138/71 179/81 H Blood Pressure [Right Arm] Blood Pressure Mean [Right Arm] Blood Pressure Source Automatic Cuff Blood Pressure Source [Right Arm] Blood Pressure Position Sitting Blood Pressure Position [Right Arm] 02 Sat by Pulse Oximetry 98 Oxygen Delivery Method Room Air Room Air Lab Data Labs: Lab Results 01/13/25 14:51: WBC 5.8, RBC 4.00 L, Hgb 13.7, Hct 42.7, MCV 106.8 H, MCH 34.3 H , MCHC 32.1, RDW 13.7, Plt Count 144, MPV 10.6 H, Neut % (Auto) 80.1 H, Lymph % (Auto) 9.7 L, Randall % (Auto) 7.7, Eos % (Auto) 0.9, Baso % (Auto) 0.7, Neut # (Auto) 4.6, Lymph # (Auto) 0.6 L, Randall # (Auto) 0.4, Eos # (Auto) 0.1, Baso # (Auto) 0.0, Sodium 138, Potassium 4.1, Chloride 102, Carbon Dioxide 25, Anion Gap 15.1 H, BUN 19 H, Creatinine 0.90, Estimated Creat Clear 34, Estimated GFR 59, Est GFR ( Amer) 72, Glucose 127 H, Calcium 9.9, Total Bilirubin 0.7, AST 32, ALT 22, Alkaline Phosphatase 83, Troponin I < 0.01, Total Protein 6.6, Albumin 4.2, Globulin 2.4, Albumin/Globulin Ratio 1.8, HCV Ab ABHIJEET w/Rflx PCR Qn Negative, HIV Ag/Ab Combo Qual Negative 01/13/25 17:36: Troponin I 0.01 Response Orders (Tests/Meds): ED MEDICATIONS Discontinued Medications Generic Name Dose Route Start Last Admin Trade Name Freq PRN Reason Stop Dose Admin Acetaminophen 1,000 mg 01/13/25 15:06 01/13/25 15:18 Acetaminophen 500mg Tab PO 01/13/25 15:07 1,000 mg ONCE ONE Administration Aspirin 324 mg 01/13/25 15:02 01/13/25 15:18 Aspirin 81mg Chewable Tablet PO 01/13/25 15:03 324 mg ONCE ONE Administration Lidocaine 1 each 01/13/25 17:18 01/13/25 17:29 Lidocaine 5% Transdermal Patch TD 01/13/25 17:19 1 each ONCE ONE Administration Nitroglycerin 0.4 mg 01/13/25 15:02 Nitroglycerin 0.4mg Sl Tablet SL 01/14/25 15:02 Q5MINP PRN Chest Pain ORDERS Category Date Time Status CXR --portable [XR chest portable] Stat Exams 01/13/25 15:06 Completed Shoulder XR left minimum 2 views [XR shoulder LT min 2V Exams 01/13/25 15:06 Completed ] Stat Complete Blood Count Auto Diff Stat Lab 01/13/25 14:51 Completed Comprehensive Metabolic Panel Stat Lab 01/13/25 14:51 Completed HIV Combo Stat Lab 01/13/25 14:51 Completed Hepatitis C Ab Qual. W/ RFX Stat Lab 01/13/25 14:51 Completed Troponin I Q3H Lab 01/13/25 17:36 Completed Troponin I Stat Lab 01/13/25 14:51 Completed ECG Data Tracing #1: Attestation: I reviewed this ECG and interpreted as documented below: ECG Narrative: Independently interpreted by myself demonstrate sinus bradycardia at a rate of 59 with premature atrial contractions occasionally, no obvious acute ischemic ST changes.
--- NOTE | 2025-01-13 15:06 | XR_ITS ---
PROCEDURE INFORMATION: Exam: XR Left Shoulder Exam date and time: 01/13/2025 3:10 PM Age: 89 years old Clinical indication: Injury or trauma; Fall; Blunt trauma (contusions or hematomas); Shoulder; Left; Additional info: Left shoulder pain after fall TECHNIQUE: Imaging protocol: Radiologic exam of the left shoulder. Views: 2 or more views. COMPARISON: CT ANGIO CHEST 09/28/2022 8:31 AM FINDINGS: Bones/joints: No acute fracture or dislocation. Soft tissues: Normal. IMPRESSION: No acute fracture or dislocation.
[2025-01-13] MEDS: ASPIRIN 81MG CHEWABLE TABLET 324 MG PO (15:18)
[2025-01-13] MEDS: ACETAMINOPHEN 500MG TAB 1000 MG PO (15:18)
[2025-01-13 15:22] LABS: Alanine Aminotransferase 22 U/L (12-78); Albumin Level 4.2 g/dl (3.5-5.0); Albumin/Globulin Ratio 1.8 (1.1-1.8); Alkaline Phosphatase 83 U/L (38-126); Anion Gap 15.1 mEq/L (5-15); Aspartate Amino Transferase 32 U/L (14-36); Bilirubin,Total 0.7 mg/dl (0.2-1.3); Blood Urea Nitrogen 19 mg/dl (7-17); Calcium 9.9 mg/dl (8.4-10.2); Carbon Dioxide 25 mmol/L (22.0-30.0); Chloride 102 mmol/L (98-107); Creatinine Clearance Estimated 34 mL/min (50-200); Creatinine,Serum 0.90 mg/dl (0.52-1.04); Estimated Glomerular Filt Rate 59 ml/min (>60); GFR (African American) 72 ML/MIN (>60); Globulin 2.4 g/dL (1.3-3.2); Glucose 127 mg/dl (74-100); Potassium 4.1 mmoL/L (3.5-5.1); Sodium 138 mmol/L (136-145); Total Protein,Serum 6.6 g/dl (6.3-8.2)
[2025-01-13 15:26] LABS: Hematocrit 42.7 % (37.0-47.0); Hemoglobin 13.7 g/dL (12.2-16.2); Immature Granulocytes % 0.9 %; Mean Corpuscular HGB Conc 32.1 g/dL (31.8-35.4); Mean Corpuscular Hemoglobin 34.3 pg (27.0-31.2); Mean Corpuscular Volume 106.8 fl (81-99); Nucleated Red Blood Cells % 0 %; Platelet Count 144 K/mm3 (142-424); Red Blood Count 4.00 M/mm3 (4.20-5.40); Red Cell Distribution Width-SD 54.6 fL; White Blood Count 5.8 K/mm3 (4.8-10.8)
[2025-01-13 15:33] LABS: Troponin I < 0.01 ng/ml (0.00-0.034)
[2025-01-13 16:50] VITALS: BP 145/68; PULSE 60; RESP 15; O2SAT 98
[2025-01-13 17:00] VITALS: BP 138/71; RESP 19; O2SAT 98
[2025-01-13 17:11] LABS: Hepatitis C Ab Qual. W/ RFX NEGATIVE (Negative)
[2025-01-13] MEDS: LIDOCAINE 5% TRANSDERMAL PATCH 1 EACH TD (17:29)
[2025-01-13 18:23] LABS: Troponin I 0.01 ng/ml (0.00-0.034)
[2025-01-13 19:00] VITALS: BP 179/81; PULSE 75; RESP 16; TEMP 36.9; O2SAT 99
== END 2025-01-13 19:00 | disposition home or self-care (01) ==
PROVIDERS: Emergency Provider Emergency Medicine; PCP Family Medicine
DX: R07.89 Other chest pain (principal); M25.512 Pain in left shoulder; R00.1 Bradycardia, unspecified; I10 Essential (primary) hypertension; E78.5 Hyperlipidemia, unspecified; Z86.79 Personal history of other diseases of the circulatory system; Z95.5 Presence of coronary angioplasty implant and graft; W07.XXXA Fall from chair, initial encounter
CPT/HCPCS: 71045; 73030; 80053; 84484; 85025; 86803; 87389; 93005; 99285

== ENCOUNTER 2025-01-15 13:25 | Outpatient (CLI) | payer MEDICARE, BC, SELFPAY ==
--- NOTE | 2025-01-15 13:33 | XR_ITS ---
FINAL REPORT CLINICAL HISTORY: L rib pain COMPARISON: 01/13/2025 FINDINGS: PA and lateral views of the chest were obtained. The cardiac and mediastinal silhouettes are within normal limits. There has been interval improvement in the lower lobe airspace disease since the prior exam of 01/13/2025. There is no pleural effusion or pneumothorax. Multiple thoracic compression fractures are present, age-indeterminate. No displaced left rib fracture is identified. IMPRESSION: Improvement in the lower lobe airspace disease since the prior exam of 01/13/2025. No displaced left rib fracture is identified. If symptoms persist, correlation with a rib series may be helpful for further evaluation. Reviewed, Interpreted and Dictated by Ileana Lynn MD Transcribed by Shara Murray Authenticated and [facility]
== END 2025-01-15 23:59 | disposition home or self-care (01) ==
LOC: RAD 13:26
PROVIDERS: PCP Family Medicine; Visit Provider Nurse Practitioner
DX: J98.4 Other disorders of lung (principal); S22.009A Unspecified fracture of unspecified thoracic vertebra, initial encounter for closed fracture; X58.XXXA Exposure to other specified factors, initial encounter
CPT/HCPCS: 71046

== ENCOUNTER 2025-02-03 09:45 | Outpatient (CLI) | payer MEDICARE, BC, SELFPAY ==
--- NOTE | 2025-02-03 | CA_ITS ---
APPROVED REPORT Exam: Pharmacologic Technologist: Shira Treviño Stress Nurse: Ramiro Gil Ht: 5 ft 5 in Wt: 129 lbs BSA: 1.64 m2 Indications: Chest Pain. Medical History Medications: Aspirin, Brimonidine 0.15%, Vitamin D3, Furosemide, Levothyroxine, Lidoderm, Spironolactone, Cyclobenazprine, Hydralazine. Stress Test Details Test: Lexiscan Reason for pharmacologic stress test: physical limitation. HR Resting HR: 65 bpm Max Heart Rate (APMHR): 133.947811 bpm Max HR Achieved: 90 bpm Target HR (85% APMHR): 113.940804 bpm % of APMHR: 67.67 Recovery HR: 85 bpm BP Resting BP: 191.0/86.0 mmHg Max BP: 154.0/74.0 mmHg Recovery BP: 169.0/73.0 mmHg ECG Resting ECG: NSR. Stress ECG Conclusion Symptoms: None. Arrhythmias/Ectopy: None. ST-T Changes: <1.5mm ST Segment changes. Conclusion: Non-diagnostic Lexiscan stress test. Electronically signed by : Meryl Salazar MD 02/03/2025 18:44:10
--- OUTSIDE RECORDS SUMMARY | 2025-02-03 09:47 | XMS_ITS ---
Laboratory report Created on: January 06, 2025 KENYON REDDY : 1935 Sex: Female Author Name CARMEN JENKINS Organization Unknown PROBLEMS Problems List Code Description R53.83 RESULTS Laboratory Orders Date Order Code Test 2024-02-29 [id number] [facility] Laboratory Results Date LOINC Test Value Unit Reference Range Interpre tation 2024-02-29 [id number] [facility] DIRECT N NEGATIVE
--- OUTSIDE RECORDS SUMMARY | 2025-02-03 09:47 | XMS_ITS | Encounter Summary ---
Author Organization Healthcare Address [address] [place] [address] Care Team Providers Care Envelope Machine Operator Name Role Phone Madiha Apodaca MD Primary Care Provider [phone] Amanda Blancas GAS METER MECHANIC Unavailable Unavailab le Amanda Blancas GAS METER MECHANIC Unavailable Unavailab le Reason for Visit * Reason Comments Med Refill Encounter Details Date Type Department Care Team (Late Contact Info) Description 12/20/2020 Refill [facility] [address] [place] [address] Madiha Apodaca MD [address] [place] [address] Social History Tobacco Use Types Packs/Day Years Used Date Smoking Tobacco: Never Smokeless Tobacco: Never PHQ-2 Answer Date Recorded Patient Health Questionnaire-2 Score 0 09/08/2020 Comments Unknown Sex and Gender Information Value Date Recorded Sex Assigned at Not on file Legal Sex Female 6:37 PM EDT Gender Identity Not on file Sexual Orientation Not on file documented as of this encounter Plan of Treatment Upcoming Encounters Date Type Department Care Team (Late Contact Info) Description 04/02/2025 1:30 PM EST Office Visit [facility] [address] [place] [address] Flory Guerin MD [address] [address] documented as of this encounter Visit Diagnoses Not on filedocumented in this encounter Additional Health Concerns Assessment Noted Time A fall risk assessment has been complete d for the patient 09/08/2020 1:57 PM EDT documented as of this encounter Care Teams Envelope Machine Operator Relationship Specialty Start Date End Date Madiha Apodaca MD [address] [place] [address] PCP - General 06/18/20 Amanda Blancas LPN VALUE-BASED TRANSFORMATION PROGRAM None Licensed Practical Nurse 04/04/22 04/04/22 Amanda Blancas LPN VALUE-BASED TRANSFORMATION PROGRAM None Licensed Practical Nurse 11/03/24 documented as of this encounter
--- OUTSIDE RECORDS SUMMARY | 2025-02-03 09:47 | XMS_ITS | Encounter Summary ---
Author Organization Healthcare Address [address] [place] [address] Care Team Providers Care Bilingual Medical Assistant Name Role Phone Madiha Apodaca MD Primary Care Provider [phone] Amanda Blancas HOUSEKEEPING STAFF Unavailable Unavailab le Encounter Details Date Type Department Care Team (Late st Contact Info) Description 08/14/2023 Outside Procedure External Location [address] [place] [address] Madiha Apodaca MD [address] [place] [address] Social History Tobacco Use Types Packs/Day Years Used Date Smoking Tobacco: Never Passive Smoke Exposure: Never Smokeless Tobacco: Never Humiliation, Afraid, Rape, and Kick questionnair e Answer Date Recorded Within the last year, have y ou been afraid of your partner or ex-partner? No 03/02/2023 Within the last year, have y ou been humiliated or emotionally abused in other ways by your partner or ex-partner? No Within the last year, have y ou been kicked, hit, slapped, or otherwise physically hurt by your partner or ex-partner? No 03/02/2023 Within the last year, have y ou been raped or forced to have any kind of sexual activity by your partner or ex-partner? No 03/02/2023 Social Connection and Isolation Panel Answer Date Recorded In a typical week, how many times do you talk on the phone with family, friends, or neighbors? More than three times a week 04/04/2022 How often do you get togethe r with friends or relatives? Once a week 04/04/2022 How often do you attend chur ch or zoroastrian services? More than 4 times per year 04/04/2022 Do you belong to any clubs o r organizations such as yazidi groups, unions, fraternal or athletic groups, or school groups? Yes 04/04/2022 How often do you attend meet ings of the clubs or organizations you belong to? More than 4 times per year 04/04/2022 Are you , , di vorced, , never , or living with a partner? 04/04/2022 AUDIT-C Answer Date Recorded Q1: How often do you have a drink containing alcohol? Never 04/04/2022 Q2: How many drinks containi ng alcohol do you have on a typical day when you are drinking? Patient does not drink Q3: How often do you have si x or more drinks on one occasion? Never 04/04/2022 Overall Financial Resource Strain (CARDIA) Answe r Date Recorded How hard is it for you to pa y for the very basics like food, housing, medical care, and heating? Not very hard 04/04/2022 PHQ-2 Answer Date Recorded Patient Health Questionnaire-2 Score 0 08/14/2023 [facility] - Occupational Stress Questionnaire Answer Date Recorded Do you feel stress - tense, restless, nervous, or anxious, or unable to sleep at night because your mind is troubled all the time - these days? Not at all 04/04/2022 Exercise Vital Sign Answer Date Recorde d On average, how many days pe r week do you engage in moderate to strenuous exercise (like a brisk walk)? 7 days 04/04/2022 On average, how many minutes do you engage in exercise at this level? 30 min 04/04/2022 Hunger Vital Sign Answer Date Recorded Within the past 12 months, y ou worried that your food would run out before you got the money to buy more. Never true 03/02/19 24 Within the past 12 months, t he food you bought just didn't last and you didn't have money to get more. Never true 03/02/2023 PRAPARE - Transportation Answer Date Re corded In the past 12 months, has l ack of transportation kept you from medical appointments or from getting medications? No 02/06 In the past 12 months, has l ack of transportation kept you from meetings, work, or from getting things needed for daily living? No 03/02/2023 Housing Stability Vital Sign Answer Reyes e Recorded In the last 12 months, was t here a time when you were not able to pay the mortgage or rent on time? No 03/02/2023 Number of Places Lived in the Last Year Not on f ile 03/02/2023 In the last 12 months, was t here a time when you did not have a steady place to sleep or slept in a longterm (including now)? No 03/02/2023 Utilities Answer Date Recorded In the past 12 months has th e electric, gas, oil, or water company threatened to shut off services in your home? No 03/02/2023 PHQ-2A Answer Date Recorded Patient Health Questionnaire-2 Score 0 12/21/2022 Comments Unknown Sex and Gender Information Value Date Recorded Sex Assigned at Not on file Legal Sex Female 6:37 PM EDT Gender Identity Not on file Sexual Orientation Not on file documented as of this encounter Plan of Treatment Upcoming Encounters Date Type Department Care Team (Late st Contact Info) Description 04/02/2025 1:30 PM EST Office Visit [facility] [address] [place] [address] Flory Guerin MD [address] [address] documented as of this encounter Procedures Procedure Name Priority Date/Time Associated Diagnosis Comments XR ABDOMEN 1 VIEW 08/14/2023 11: 40 AM EDT documented in this encounter Results * XR Abdomen 1 View (08/14/2023 11:40 AM EDT) Anatomical Region Laterality Modality Body Digital Radiogra phy 08/14/2023 11:4 0 AM EDT Narrative 08/14/2023 2:27 [place] [address] Name: JENELLE REDDY Exam Date: 08/14/2023 : 1935 Age 88 years Gender: F Physician: Madiha Apodaca Facility: [facility] Facility HSV: Outpatient Exam: ABD KUB 1V KUB. HISTORY: Acute right-sided abdominal pain. COMPARISON: September 01, 2019. FINDINGS: A single view of the abdomen with a coned-down of the pelvis demonstrates a nonspecific, nonobstructive bowel gas pattern. There is redemonstration of moderate to severe colonic stool burden. There is no large fecalith present in the rectal vault. Degenerative changes are identified involving the hip, SI, and pubic symphysis joints. IMPRESSION: Moderate to severe colonic stool burden without evidence of obstructing or large fecalith in the rectal vault. Correlate for constipation. The films were reviewed, interpreted, and dictated by Dr. Gonzalo Lane Transcribed by Tori Irving PA-C Dictated By: Gonzalo Lane Transcribed By: Gonzalo Lane Transcribed On: 08/14/2023 2:25 PM Electronically signed by: Gonzalo Lane 08/14/2023 Thank you for referring JENELLE REDDY to [facility]. Legally authenticated by COLIN Miller 2023-08-14 14:25:31 Procedure Note Provider, Generic [place] - 08/14/2023 [place] [id number] Name: JENELLE REDDY Exam Date: 08/14/2023 : 1935 Age 88 years Gender: F Physician: Madiha Apodaca Facility: [facility] Facility HSV: Outpatient Exam: ABD KUB 1V KUB. HISTORY: Acute right-sided abdominal pain. COMPARISON: September 01, 2019. FINDINGS: A single view of the abdomen with a coned-down of the pelvis demonstrates a nonspecific, nonobstructive bowel gas pattern. There is redemonstration of moderate to severe colonic stool burden. There is nolarge fecalith present in the rectal vault. Degenerative changes areidentified involving the hip, SI, and pubic symphysis joints. IMPRESSION: Moderate to severe colonic stool burden without evidence of obstructing or large fecalith in the rectal vault. Correlate forconstipation. The films were reviewed, interpreted, and dictated by Dr. Arnold Transcribed by Tori Irving PA-C Dictated By: Gonzalo Lane Transcribed By: Gonzalo Lane Transcribed On: 08/14/2023 2:25 PM Electronically signed by: Gonzalo Lane 08/14/2023 Thank you for referring JENELLE REDDY to [facility]. Legally authenticated by COLIN Miller 2023-08-14 14:25:31 us Madiha Apodaca MD IMG XR PROCEDURES Final Resul t documented in this encounter Visit Diagnoses Not on filedocumented in this encounter Additional Health Concerns Assessment Noted Time A fall risk assessment has been complete d for the patient 08/14/2023 10:34 AM EDT A Body Mass Index follow-up plan has been documented for the patient 08/14/2023 11:27 AM EDT documented as of this encounter Care Teams Bilingual Medical Assistant Relationship Specialty Start Date End Date Madiha Apodaca MD [address] [place] [address] PCP - General 06/18/20 Amanda Blancas LPN VALUE-BASED TRANSFORMATION PROGRAM None Licensed Practical Nurse 11/03/24 documented as of this encounter
--- OUTSIDE RECORDS SUMMARY | 2025-02-03 09:47 | XMS_ITS ---
Laboratory report Created on: January 06, 2025 KENYON REDDY : 1935 Sex: Female Author Organization Unknown PROBLEMS Problems List Code Description R30.0 RESULTS Laboratory Orders Date Order Code Test 2024-07-08 [id number] URINE CULTURE, R OUTINE Laboratory Results Date LOINC Test Value Unit Reference Range Interpre tation 2024-07-08 630-4 URINE CULTURE, ROUTINE FINAL A 2024-07-08 630-4 RESULT 1 ECMS A 2024-07-08 [id number] ANTIMICROBIAL SUSCEPTIBILITY [facility]
--- OUTSIDE RECORDS SUMMARY | 2025-02-03 09:47 | XMS_ITS | Clinical Summary ---
Author Organization [facility] Address [address] [place] [address] Care Team Providers Care Rubber Compounder Mixer Name Role Phone Madiha Apodaca MD Primary Care Provider [phone] Allergies Active Allergy Reactions Criticality Noted Date Comments Cefdinir Swelling High 08/12/2020 Codeine Anaphylaxis,Swelling High 08/12/2020 Erythromycin Swelling,Rash Low 08/12/2020 Penicillins Rash,Swelling High 08/12/2020 Statins Other (See Comments) Low 04/14/2022 Patient stated she just didn't feel well Sulfa Antibiotics Rash Low 08/12/2020 Medications Cholecalciferol 10 MCG (400 UNIT) tablet Take 1 tablet by mouth Daily. Active meclizine (ANTIVERT) 25 MG tablet As Needed. Active Magnesium 500 MG capsule Take 500 mg by mouth. Active levothyroxine (SYNTHROID, LEVOTHROID) 25 MCG tablet 12/13/2023 Active spironolactone (ALDACTONE) 25 MG tablet Active furosemide (LASIX) 20 MG tablet Take 1 tablet by mouth 2 (Two) Times a Day. Active aspirin 81 MG EC tablet Take 1 tablet by mouth Daily. Active brimonidine (ALPHAGAN) 0.2 % ophthalmic solution 1 drop 3 (Three) Times a Day. Active acetaminophen (TYLENOL) 500 MG tablet Take 1 tablet by mouth Every 6 (Six) Hours As Needed for Mild Pain. Active Active Problems Problem Noted Date Diagnosed Date Diastolic dysfunction 03/02/2023 Iron deficiency anemia 05/15/2019 Solitary pulmonary nodule 04/09/2018 Overview (01/23/2024): Solitary nodule of lung Sarcoidosis 01/23/2017 CKD (chronic kidney disease) 11/21/2016 Dyspnea on exertion 09/09/2015 Hypercalcemia 09/07/2015 Allergic rhinitis 05/02/2014 Anemia 05/02/2014 Osteoporosis 05/02/2014 Encounters Date Type Department Care Team Description 11/24/2024 Telephone [facility] DEPT [address] [place] [address] Navigator, Lung from Last 3 Months Immunizations Immunization Administration Dates Next Due ABRYSVO (RSV, 60+ or pregnan t women 32-36 wks) 12/17/2023 Fluad Quad 65+ 11/04/2021,11/02/2020 Fluzone (or Fluarix & Flulav al for VFC) >6mos 11/23/2015,02/02/2015 Fluzone High-Dose 65+YRS 11/15/2023,12/17/2019,1 Fluzone High-Dose 65+yrs 12/21/2022 Influenza Seasonal Injectable 11/13/2013, 013 Social History Tobacco Use Types Packs/Day Years Used Date Smoking Tobacco: Never Smokeless Tobacco: Never Alcohol Use Standard Drinks/Week Comments Defer 0 (1 standard drink = 0.6 oz pur e alcohol) Comments Unknown Sex and Gender Information Value Date Recorded Sex Assigned at Not on file Legal Sex Female 9:40 AM EDT Gender Identity Not on file Sexual Orientation Not on file Last Filed Vital Signs Vital Sign Reading Time Taken Comments Blood Pressure 132/72 02/29/2024 11:13 AM EST Pulse 70 02/29/2024 11:13 AM EST Temperature 36.3 C (97.4 F) 02/29/2024 11:13 AM EST Respiratory Rate - - Oxygen Saturation 97% 02/29/2024 11: 13 AM EST Room air at rest Inhaled Oxygen Concentration - - Weight 58.5 kg (129 lb) 02/29/2024 11:1 3 AM EST Height 160 cm (5' 3 ) 02/29/2024 11:13 AM EST Body Mass Index 22.85 02/29/2024 11:13 AM EST Plan of Treatment Health Maintenance Due Date Last Done Comments DXA SCAN 1935 TDAP/TD VACCINES (1 - Tdap) 1956 Pneumococcal Vaccine 50+ (1 of 1 - PCV) 07/12/1987 ZOSTER VACCINE (1 of 2) 07/12/1987 ANNUAL WELLNESS VISIT 01/22/2024 INFLUENZA VACCINE 09/05/2024 11/15/2023, , 11/04/2021, Additional history exists COVID-19 Vaccine (5 - Modern a risk season) 2024 11/15/2023, 12/21/2022, 12/20/2020, Additional history exists RSV Vaccine - Adults Completed 12/17/2023 Insurance MEDICARE A & B [facility] Advance Directives Documents on File Type Date Recorded Patient Lump Receiver Expl anation LIVING WILL - SCAN 01/23/2024 2:25 PM FADUMO ALVA, 01/14/2016 Care Teams Rubber Compounder Mixer Relationship Specialty Start Date End Date Madiha Apodaca MD [address] [place] [address] PCP - General Family Medicine 11/21/22
--- OUTSIDE RECORDS SUMMARY | 2025-02-03 09:47 | XMS_ITS | Clinical Summary ---
Author Organization [employer] ([place], [place], [place], [place], [place]) Address [address] [place] [address] Care Team Providers Care Wax Blender Name Role Phone Madiha Apodaca MD Primary Care Provider [phone] Social History Tobacco Use Types Packs/Day Years Used Date Smoking Tobacco: Never Assessed Comments Unknown Sex and Gender Information Value Date Recorded Sex Assigned at Not on file Legal Sex Female 6:30 PM CDT Gender Identity Not on file Sexual Orientation Not on file Plan of Treatment Health Maintenance Due Date Last Done Comments Depression Screening (12+) 1949 Tobacco Cessation Counseling and Screening (12+) 1947 DTAP/TDAP/TD VACCINES (1 - Tdap) 1956 Pneumococcal 50+ years (1 of 1 - PCV) 07/12/1987 Shingles Vaccine (Zoster) (1 of 2) 07/12/1987 Medicare Initial AWV [id number] 07/08/2003 Respiratory Syncytial Virus (RSV) Adult or (1 - 1-dose 75+ series) 2012 Falls Risk Screening 02/06/2024 COVID-19 VACCINE (4 - 2024-2 6 season) 2024 12/20/2020, 04/14/2020, 03/17/2020 Influenza Vaccine (#1) 2024 3, 11/04/2021, 11/02/2020, Additional [place] [id number] [address] [place] [address] [address] SUPP Care Teams Wax Blender Relationship Specialty Start Date End Date Madiha Apodaca MD [address] [place] [address] PCP - General Family Medicine 05/08/24
--- OUTSIDE RECORDS SUMMARY | 2025-02-03 09:47 | XMS_ITS | Encounter Summary ---
Author Organization Healthcare Address [address] [place] [address] Care Team Providers Care Road Conductor Name Role Phone Madiha Apodaca MD Primary Care Provider [phone] Amanda Blancas SCRUB WHEEL OPERATOR Unavailable Unavailab le Reason for Visit * Reason Comments Med Refill Encounter Details Date Type Department Care Team (Late st Contact Info) Description 11/04/2022 Refill Family [facility] Community Medicine [address] [place] [address] Madiha Apodaca MD [address] [place] [address] Social History Tobacco Use Types Packs/Day Years Used Date Smoking Tobacco: Never Passive Smoke Exposure: Never Smokeless Tobacco: Never Humiliation, Afraid, Rape, and Kick questionnair e Answer Date Recorded Within the last year, have y ou been afraid of your partner or ex-partner? No 04/04/2022 Within the last year, have y ou been humiliated or emotionally abused in other ways by your partner or ex-partner? No Within the last year, have y ou been kicked, hit, slapped, or otherwise physically hurt by your partner or ex-partner? No 04/04/2022 Within the last year, have y ou been raped or forced to have any kind of sexual activity by your partner or ex-partner? No 04/04/2022 Social Connection and Isolation Panel Answer Date Recorded In a typical week, how many times do you talk on the phone with family, friends, or neighbors? More than three times a week 04/04/2022 How often do you get togethe r with friends or relatives? Once a week 04/04/2022 How often do you attend chur ch or judaism services? More than 4 times per year 04/04/2022 Do you belong to any clubs o r organizations such as protestant groups, unions, fraternal or athletic groups, or [...] Date Recorded Patient Health Questionnaire-2 Score 0 08/25/2022 [facility]ational Stress Questionnaire Answer Date Recorded [...] the money to buy more. Never true 04/04/19 23 Within the past 12 months, t he food you bought just didn't last and you didn't have money to get more. Never true 04/04/2022 PRAPARE - Transportation Answer Date Re corded In the past 12 months, has l ack of transportation kept you from medical appointments or from getting medications? No 03/09 In the past 12 months, has l ack of transportation kept you from meetings, work, or from getting things needed for daily living? No 04/04/2022 Housing Stability Vital Sign Answer Reyes e Recorded In the last 12 months, was t here a time when you were not able to pay the mortgage or rent on time? No 04/04/2022 In the last 12 months, how many places have you lived? 1 04/04/2022 In the last 12 months, was t here a time when you did not have a steady place to sleep or slept in a senior care (including now)? No 04/04/2022 Comments Unknown Sex and Gender Information Value Date Recorded Sex Assigned at Not on file Legal Sex Female 6:37 PM EDT Gender Identity Not on file Sexual Orientation Not on file documented as of this encounter Miscellaneous Notes * Telephone Encounter - Rose Marie Gr - 11/07/2022 10:36 AM EDT Pt no longer takes documented in this encounter Plan of Treatment Upcoming Encounters Date Type Department Care Team (Late st Contact Info) Description 04/02/2025 1:30 PM EST Office Visit [facility] [address] [place] [address] Flory Guerin MD [address] [address] documented as of this encounter Visit Diagnoses Not on filedocumented in this encounter Additional Health Concerns Assessment Noted Time A fall risk assessment has been complete d for the patient 08/25/2022 7:38 AM EDT documented as of this encounter Care Teams Road Conductor Relationship Specialty Start Date End Date Madiha Apodaca MD [address] [place] [id number] PCP - General 06/18/20 Amanda Blancas LPN VALUE-BASED TRANSFORMATION PROGRAM None Licensed Practical Nurse 11/03/24 documented as of this encounter
--- OUTSIDE RECORDS SUMMARY | 2025-02-03 09:47 | XMS_ITS ---
Author Organization [facility] Address [address] [place] [address] Care Team Providers Care Digital Product Specialist Name Role Phone Madiha Apodaca MD Primary Care Provider [phone] Amanda Blancas LPN Unavailable Unavailab le Annual Wellness Status:Active (Active) Program category:Care Coordination Start date:11/03/2024 Enrollment date:11/03/2024 Enrollment reason:Identified using claims or encounter data Case Team Name Relationship Phone Amanda Blancas LPN(Responsible Staff) License d Practical Nurse Continued Care and Services Coordination
--- OUTSIDE RECORDS SUMMARY | 2025-02-03 09:47 | XMS_ITS | Referral Summary ---
Author Organization [employer] ([place], [place], [place], [place], [place]) Address [address] [place] [address] Care Team Providers Care Blender Helper Name Role Phone Madiha Apodaca MD Primary Care Provider [phone] Social History Tobacco Use Types Packs/Day Years Used Date Smoking Tobacco: Never Assessed Comments Unknown Sex and Gender Information Value Date Recorded Sex Assigned at Not on file Legal Sex Female 6:30 PM CDT Gender Identity Not on file Sexual Orientation Not on file Plan of Treatment Not on file Insurance MARQUIS CEBALLOS [id number] [address] [place] [address] [address] Care Teams Blender Helper Relationship Specialty Start Date End Date Madiha Apodaca MD [address] [place], [place] [id number] PCP - General Family Medicine 05/08/24
--- OUTSIDE RECORDS SUMMARY | 2025-02-03 09:47 | XMS_ITS | Encounter Summary ---
Author Organization Healthcare Address [address] [place] [address] Care Team Providers Care Straddle Bug Driver Name Role Phone Madiha Apodaca MD Primary Care Provider Amanda Blancas BRAND MANAGER Unavailable Unavailab le Amanda Blancas BRAND MANAGER Unavailable Unavailab le Encounter Details Date Type Department Care Team (Late Contact Info) Description 10/28/2020 Outside Procedure External Location [address] [place] [id number] Provider, [facility] Social History Tobacco Use Types Packs/Day Years [...] Description 04/02/2025 1:30 PM EST Office Visit [facility] [address] [place] [address] Flory Guerin MD [address] [facility] [address] [place] [address] documented as of this encounter Procedures Procedure Name Priority Date/Time Associated Diagnosis Comments XR CHEST 2 VIEWS 10/28/2020 10:4 9 AM EDT documented in this encounter Results * XR Chest 2 Views (10/28/2020 10:49 AM EDT) Anatomical Region Laterality Modality Chest Radiographic Aislinn ging 10/28/2020 10:4 9 AM EDT Narrative 10/28/2020 4:16 [place] [address] Name: JENELLE REDDY Exam Date: 10/28/2020 : 1935 Age 85 Gender: F Physician: JARVIS ASHLEY Facility: [facility] Facility HSV: Outpatient Exam: CHEST 2 VIEWS CHEST, 2 VIEWS HISTORY: Cough. Pulmonary nodules. COMPARISON: 08/11/2019 FINDINGS: The heart and mediastinum are unremarkable. The lungs are hyperinflated consistent with emphysema but are otherwise clear without evidence of acute infiltrate or effusion. The bony structures demonstrates severe thoracic kyphosis. IMPRESSION: No acute process. Films reviewed , interpreted and dictated by Dr. Pradhan. Transcribed by Kian Silvestre PA-C. Dictated By: GRACE PRADHAN Transcribed By: Brayden Pradhan Transcribed On: 10/28/2020 4:04 PM Electronically signed by: GRACE PRADHAN 10/28/2020 Thank you for referring JENELLE REDDY to [facility]. Legally authenticated by CAROLYNN VELASCO 2020-10-28 16:04:06 Procedure Note Provider, [facility] - 10/28/2020 [place] [address] Name: JENELLE REDDY Exam Date: 10/28/2020 : 1935 Age 85 Gender: F Physician: JARVIS ASHLEY Facility: [facility] Facility HSV: Outpatient Exam: CHEST 2 VIEWS CHEST, 2 VIEWS HISTORY: Cough. Pulmonary nodules. COMPARISON: 08/11/2019 FINDINGS: The heart and mediastinum are unremarkable. The lungs are hyperinflated consistent with emphysema but are otherwiseclear without evidence of acute infiltrate or effusion. The bony structures demonstrates severe thoracic kyphosis. IMPRESSION: No acute process. Films reviewed , interpreted and dictated by Dr. Pradhan. Transcribed by Kian Silvestre PA-C. Dictated By: GRACE PRADHAN Transcribed By: Brayden Pradhan Transcribed On: 10/28/2020 4:04 PM Electronically signed by: GRACE PRADHAN 10/28/2020 Thank you for referring JENELLE REDDY to [facility]. Legally authenticated by CAROLYNN VELASCO 2020-10-28 16:04:06 us Generic [facility] Provider IMG XR PROCEDURES Fi nal Result documented in this encounter Visit Diagnoses Not on filedocumented in this encounter Additional Health Concerns Assessment Noted Time A fall risk assessment has been complete d for the patient 09/08/2020 1:57 PM EDT documented as of this encounter Care Teams Straddle Bug Driver Relationship Specialty Start Date End Date Madiha Apodaca MD [address] [place] [address] PCP - General 06/18/20 Amanda Blancas LPN VALUE-BASED TRANSFORMATION PROGRAM None Licensed Practical Nurse 04/04/22 04/04/22 Amanda Blancas LPN VALUE-BASED TRANSFORMATION PROGRAM None Licensed Practical Nurse 11/03/24 documented as of this encounter
--- OUTSIDE RECORDS SUMMARY | 2025-02-03 09:47 | XMS_ITS ---
Laboratory report Created on: January 06, 2025 KENYON REDDY : 1935 Sex: Female Author Name ALICE CARMEN Organization Unknown PROBLEMS Problems List Code Description R53.83 RESULTS Laboratory Orders Date Order Code Test 2024-02-29 [id number] ANCA PROFILE Laboratory Results Date LOINC Test Value Unit Reference Range Interpre tation 2024-02-29 [id number] ANTI-MPO ANTIBODIES <0.2 UNITS 0.0-0.9 2024-02-29 [id number] ANTI-PR3 ANTIBODIES <0.2 UNITS 0.0-0.9 2024-02-29 [id number] CYTOPLASMIC (C-ANCA) NANCA TITER NEG:<1:2 0 2024-02-29 [id number] PERINUCLEAR (P-ANCA) NANCA TITER NEG:<1:2 0 2024-02-29 68325-3 ATYPICAL PANCA NANCA TITER NEG:<1:20
--- OUTSIDE RECORDS SUMMARY | 2025-02-03 09:47 | XMS_ITS ---
Laboratory report Created on: January 06, 2025 KENYON REDDY : 1935 Sex: Female Author Name CARMEN JENKINS Organization Unknown PROBLEMS Problems List Code Description R06.02 RESULTS Laboratory Orders Date Order Code Test 2024-02-29 [id number] SIN PHENOTYP Laboratory Results Date LOINC Test Value Unit Reference Range Interpre tation 2024-02-29 [id number] SIN, SERUM 130 MG/DL [id number] PHENOTYPE (PI) MM
--- OUTSIDE RECORDS SUMMARY | 2025-02-03 09:47 | XMS_ITS | Clinical Summary ---
Author Organization Healthcare Address [address] [place] [address] Care Team Providers Care Refractory Technician Name Role Phone Madiha Apodaca MD Primary Care Provider [phone] Amanda Blancas SEAT SCOOPER MACHINE Unavailable Unavailab le Allergies Active Allergy Reactions Criticality Noted Date Comments Cefdinir Swelling High 08/12/2020 Codeine Anaphylaxis High 08/12/2020 Erythromycin Rash Low 08/12/2020 Penicillins Swelling,Rash High 08/12/2020 Statins Other - please docum ent in the comment field Low 04/14/2022 Patient stated she just didn't feel well Sulfa Drugs Rash Low 08/12/2020 Medications aspirin 81 MG EC tablet 5 Active spironolactone (Aldactone) 25 MG tablet Take 1 tablet (25 mg) by mouth 1 (one) time each day. 1 Active Multiple Vitamins-Mineral s (PRESERVISION AREDS PO) Take by mouth. Activ e fluticasone (Flonase) 50 MCG/ACT nasal sprayIndications :Allergic rhinitis, unspecified seasonality, unspecified trigger Administer 1 spray into each nostril 1 (one) time each day. Shake gently. Before first use, prime pump. After use, clean tip and replace cap. 16 g 12 3 Active meclizine (Antivert) 25 MG tabletIndication s:Acute pain of left knee Take 1 tablet (25 mg) by mouth 3 (three) times a day if needed for dizziness. 30 tablet 3 Active cholecalciferol 10 MCG (400 UNIT) tablet Take 1 tablet (400 Units) by mouth 1 (one) time each day. Active levothyroxine (Synthroid, Levoxyl) 25 MCG tablet TAKE 1 TABLET(25 MCG) BY MOUTH 1 TIME EACH DAY BEFORE BREAKFAST 90 tablet 3 5 Active brimonidine 0.2 % OP ophthalmic solution Administer 1 drop into both eyes daily. 10 mL 3 5 Active furosemide (Lasix) 20 MG tabletIndication s:Edema, unspecified type Take 1 tablet by mouth daily. 90 tablet 3 5 Active acetaminophen (Tylenol) 325 MG tablet Take 2 tablets by mouth as needed. Active Active Problems Problem Noted Date Diagnosed Date Primary open angle glaucoma (POAG) of left eye, moderate stage 09/27/2023 Aortic insufficiency 03/02/2023 Carotid artery stenosis 03/02/2023 Renal artery stenosis 03/02/2023 Diastolic dysfunction 03/02/2023 Primary open-angle glaucoma, right eye, mild sta ge 05/05/2022 Primary open-angle glaucoma, left eye, moderate stage 09/07/2021 Adult hypothyroidism 06/11/2020 Iron deficiency anemia 05/15/2019 Solitary pulmonary nodule 04/09/2018 Overview (06/21/2023): Solitary nodule of lung Edema 03/29/2018 Sarcoidosis 01/23/2017 CKD (chronic kidney disease) 11/21/2016 Dyspnea on exertion 09/09/2015 Hypercalcemia 09/07/2015 Allergic rhinitis 05/02/2014 Anemia 05/02/2014 CAD (coronary atherosclerotic disease) 5 HLD (hyperlipidemia) 05/02/2014 HTN (hypertension) 05/02/2014 Osteoporosis 05/02/2014 Encounters Date Type Department Care Team Description 11/21/2024 Orders Only [facility] [address] [place] [address] Trey Hurd MD 11/18/2024 Telephone [facility] [address] [place] [address] Madiha Apodaca MD 11/10/2024 1:20 PM EDT Office Visit [facility] [address] [place] [address] Madiha Apodaca MD Vitamin D deficiency, unspecified (Primary Dx); Flu vaccine need; Need for pneumococcal 20-valent conjugate vaccination; Routine general medical examination at a health care facility; Chronic kidney disease, unspecified CKD stage; Chronic right-sided thoracic back pain; Edema, unspecified type 11/10/2024 Travel from Last 3 Months Immunizations Immunization Administration Dates Next Due Influenza, High-dose, Split Virus, Trivalent, Injectable, preservative free 11/10/2024,11/15/2023 Influenza, high-dose, quadrivalent 12/21,11/04/2021,11/02/2020,2019,11/25/2018 Influenza, injectable, quadr ivalent, preservative free 11/23/2015,02/02/2015 Influenza, seasonal, injectable 11/13/2013,11/05 Moderna COVID-19 Vaccine (Re d Cap) 12+ years 12/20/2020,04/14/2020,03/17/2020 Moderna Covid-19 Vaccine 12y +, Leonardo Protein, Preservative free 12/21/2022 Pneumococcal 20-kat Conj Vaccine 11/10/2024 RSV IGIV 12/17/2023 Rsv, Bivalent, Protein Subun it Rsvpref, Diluent Reconstituted, 0.5mL, PF 12/17/2023 Family History Medical History Relation Name Comments Anesthesia problems Neg Hx Malig Hyperthermia Neg Hx Social History Tobacco Use Types Packs/Day Years Used Date Smoking Tobacco: Never Passive Smoke Exposure: Never Smokeless Tobacco: Never Tobacco Cessation:Counseling Given: Not Answered Alcohol Use Standard Drinks/Week Comments Never 0 (1 standard drink = 0.6 oz pur e alcohol) Social Connection and Isolation Panel Answer Date Recorded In a typical week, how many times do you talk on the phone with family, friends, or neighbors? More than three times a week 04/04/2022 How often do you get togethe r with friends or relatives? Once a week 04/04/2022 How often do you attend [facility] or [facility] services? More than 4 times per year 04/04/2022 Do you belong to any clubs o r organizations such as [employer] groups, unions, fraternal or athletic groups, or [...] Date Recorded Patient Health Questionnaire-2 Score 0 08/26/2024 PHQ-9 Answer Date Recorded Patient Health Questionnaire-9 Score 0 08/26/2024 Humiliation, Afraid, Rape, and Kick questionnair e Answer Date Recorded Within the last year, have y ou been afraid of your partner or ex-partner? No 11/03/2024 Within the last year, have y ou been humiliated or emotionally abused in other ways by your partner or ex-partner? No Within the last year, have y ou been kicked, hit, slapped, or otherwise physically hurt by your partner or ex-partner? No 11/03/2024 Within the last year, have y ou been raped or forced to have any kind of sexual activity by your partner or ex-partner? No 11/03/2024 Social Connection and Isolation Panel Answer Date Recorded In a typical week, how many times do you talk on the phone with family, friends, or neighbors? More than three times a week 11/03/2024 How often do you get togethe r with friends or relatives? Once a week 11/03/2024 How often do you attend chur or [facility] services? More than 4 times per year 11/03/2024 Do you belong to any clubs o r organizations such as presybeterian groups, unions, [employer] or athletic groups, or school groups? Yes 11/03/2024 How often do you attend meet ings of the clubs or organizations you belong to? More than 4 times per year 11/03/2024 Are you , , di vorced, , never , or living with a partner? 11/03/2024 AUDIT-C Answer Date Recorded Q1: How often do you have a drink containing alcohol? Never 11/03/2024 Q2: How many drinks containi ng alcohol do you have on a typical day when you are drinking? Patient does not drink Q3: How often do you have si x or more drinks on one occasion? Never 11/03/2024 [facility] - Occupational Stress Questionnaire Answer Date Recorded Do you feel stress - tense, restless, nervous, or anxious, or unable to sleep at night because your mind is troubled all the time - these days? Not at all 11/03/2024 Exercise Vital Sign Answer Date Recorde d On average, how many days pe r week do you engage in moderate to strenuous exercise (like a brisk walk)? 0 days 11/03/2024 On average, how many minutes do you engage in exercise at this level? 0 min 11/03/2024 Hunger Vital Sign Answer Date Recorded Within the past 12 months, y ou worried that your food would run out before you got the money to buy more. Never true 11/04/19 25 Within the past 12 months, t he food you bought just didn't last and you didn't have money to get more. Never true 11/03/2024 PRAPARE - Transportation Answer Date Re corded In the past 12 months, has l ack of transportation kept you from medical appointments or from getting medications? No 10/07 In the past 12 months, has l ack of transportation kept you from meetings, work, or from getting things needed for daily living? No 11/03/2024 Housing Stability Vital Sign Answer Reyes e Recorded In the last 12 months, was t here a time when you were not able to pay the mortgage or rent on time? No 11/03/2024 In the past 12 months, how m any times have you moved where you were living? 0 11/03/2024 At any time in the past 12 m [facility], were you homeless or living in a longterm (including now)? No 11/03/2024 [facility] Utilities Answer Date Recorded In the past 12 months has [employer], gas, oil, or water company threatened to shut off services in your home? No 11/03/2024 PHQ-2A Answer Date Recorded Patient Health Questionnaire-2 Score 0 12/21/2022 Comments No Sex and Gender Information Value Date Recorded Sex Assigned at Not on file Legal Sex Female 6:37 PM EDT Gender Identity Not on file Sexual Orientation Not on file Last Filed Vital Signs Vital Sign Reading Time Taken Comments Blood Pressure 120/68 11/10/2024 1:05 PM EDT Pulse 57 11/10/2024 1:05 PM EDT Temperature 37 C (98.6 F) 11/10/2024 1:05 PM EDT Respiratory Rate 16 11/10/2024 1:05 PM EDT Oxygen Saturation 99% 11/10/2024 1:05 PM EDT Inhaled Oxygen Concentration - - Weight 56.3 kg (124 lb 1.9 oz) 11/10/2024 1:05 P M EDT Height 165.1 cm (5' 5 ) 11/10/2024 1:05 PM EDT Body Mass Index 20.65 11/10/2024 1:05 PM EDT Plan of Treatment Upcoming Encounters Date Type Department Care Team (Late st Contact Info) Description 04/02/2025 1:30 PM EST Office Visit [facility] [address] [place] [address] Flory Guerin MD [address] [facility] [address] [place] [address] Health Maintenance Due Date Last Done Comments [facility]-Bone Density Scan 1935 [facility]-/Child/Adol SDOH Screenings 1935 [facility]-DTaP,Tdap,and Td Vaccines (1 - Tdap) 1954 [facility]-Zoster Vaccines (1 of 2) 07/12/1987 [id number] Vaccine (6 - 2025-26 season) 2024 11/15/2023, 12/21/2022, 12/20/2020, Additional history exists [facility]- SDOH Screenings 05/03/2025 [facility]-Adult SDOH Screenings 05/03/2025 11/03/2024 [facility]-Depression Screening 08/26/2025 08/26/2024, 08/06 [facility]-Medicare Annual Wellness (AWV) 11/10/2025 11/10/2024 [facility]-RSV Vaccine: 60+ Years or Completed 12/17/2023 [facility]-Influenza Vaccine Completed 11/10/2024 , 11/15/2023, 12/21/2022, Additional history exists [facility]-Pneumococcal Vaccine: 50+ Years Completed 11/10/2024 HPV Vaccines (No Doses Required) Completed [facility]-HIB Vaccines Aged Out No longer e ligible based on patient's age to complete this topic [facility]-Hepatitis A Vaccines Aged Out No longer eligible based on patient's age to complete this topic [facility]-IPV Vaccines Aged Out No longer e ligible based on patient's age to complete this topic [facility]-Rotavirus Vaccines Aged Out No lo nger eligible based on patient's age to complete this topic Procedures Procedure Name Priority Date/Time Associated Diagnosis Comments URINALYSIS MICROSCOPIC FOR UA REFLEX Routine 11/10/2024 3:01 PM EDT Flu vaccine need Need for pneumococcal 20-valent conjugate vaccination Routine general medical examination at a health care facility Chronic kidney disease, unspecified CKD stage Vitamin D deficiency, unspecified CBC W/O DIFFERENTIAL Routine 11/10/2024 3:01 PM EDT Flu vaccine need Need for pneumococcal 20-valent conjugate vaccination Routine general medical examination at a health care facility Chronic kidney disease, unspecified CKD stage Vitamin D deficiency, unspecified URINALYSIS WITH REFLEX MICROSCOPIC Routine 11/10/2024 3:01 PM EDT Flu vaccine need Need for pneumococcal 20-valent conjugate vaccination Routine general medical examination at a health care facility Chronic kidney disease, unspecified CKD stage Vitamin D deficiency, unspecified VITAMIN D 25 HYDROXY Routine 11/10/2024 3:01 PM EDT Flu vaccine need Need for pneumococcal 20-valent conjugate vaccination Routine general medical examination at a health care facility Chronic kidney disease, unspecified CKD stage Vitamin D deficiency, unspecified PTH INTACT TOTAL Routine 11/10/2024 3:01 PM EDT Flu vaccine need Need for pneumococcal 20-valent conjugate vaccination Routine general medical examination at a health care facility Chronic kidney disease, unspecified CKD stage Vitamin D deficiency, unspecified ANGIOTENSIN CONVERTING ENZYME, SERUM (SO) Routine 11/10/2024 3:01 PM EDT Flu vaccine need Need for pneumococcal 20-valent conjugate vaccination Routine general medical examination at a health care facility Chronic kidney disease, unspecified CKD stage Vitamin D deficiency, unspecified COMPREHENSIVE METABOLIC PANEL, PLASMA Routine 11/10/2024 2:16 PM EDT Flu vaccine need Need for pneumococcal 20-valent conjugate vaccination Routine general medical examination at a health care facility Chronic kidney disease, unspecified CKD stage Vitamin D deficiency, unspecified URIC ACID, PLASMA Routine 11/10/2024 2:1 6 PM EDT Flu vaccine need Need for pneumococcal 20-valent conjugate vaccination Routine general medical examination at a health care facility Chronic kidney disease, unspecified CKD stage Vitamin D deficiency, unspecified from Last 3 Months Results * Urinalysis Microscopic Examination (11/10/2024 3:01 PM EDT) Urine Urine specimen obtained by clean catch procedure / Unknown Non-blood Collection / Unknown 11/10/2024 3:01 PM EDT 11/10/2024 3:01 PM EDT us David العراقي MD LAB URINE ORDERABLES Final R esult [facility] [address] [place] [address] * Vitamin D 25 Hydroxy (11/10/2024 3:01 PM EDT) Vitamin D 25 Hydroxy 36.4 20.0 - 80.0 ng/mL 11/10/2024 9:16 PM EDT [facility] Blood Venous blood specimen / Unknown Venipuncture / Unknown 11/10/2024 3:01 PM EDT 11/10/2024 3:01 PM EDT Narrative [facility] - 11/10/2024 9:16 PM EDT Testing performed on [employer], standardized against NIST SRM 2972. When testing samples from patients whose predominant form of vitamin D is vitamin D2, such as patients receiving vitamin D2 supplementation, results that are subtherapeutic should be confirmed with another method, such as LC-MS/MS, before being used for patient management. Vitamin D, 25-Hydroxy reference range, age 18 years and up: Deficiency: <12 ng/mL Insufficiency: 12 to 19 ng/mL Sufficiency: 20 to 80 ng/mL Possible toxicity: >100 ng/mL us David العراقي MD LAB BLOOD ORDERABLES Final R esult [facility] [address] [place] [address] * (ABNORMAL) Urinalysis with reflex microscopic (Culture NOT Included) (11/10/2024 3:01 PM EDT) Color, Urine Yellow LAB URINALYSIS - AUTOMATED METHOD 11/10/2024 7:31 PM EDT [facility] Clarity, Urine Clear LAB URINALYSIS - AUTOMATED METHOD 11/10/2024 7:31 PM EDT [facility] Spec [place], Urine 1.014 1.005 - 1.030 LAB URINALYSIS - AUTOMATED METHOD 11/10/2024 7:31 PM EDT [facility] pH, Urine 6.0 5.0 - 8.0 LAB URINALYSIS - AUTOMATED METHOD 11/10/2024 7:31 PM EDT [facility] Protein, Urine Negative Negative mg/dL LAB URINALYSIS - AUTOMATED METHOD 11/10/2024 7:31 PM EDT [facility] Glucose, Urine Negative Negative mg/dL LAB URINALYSIS - AUTOMATED METHOD 11/10/2024 7:31 PM EDT [facility] Ketones, Urine Negative Negative mg/dL LAB URINALYSIS - AUTOMATED METHOD 11/10/2024 7:31 PM EDT [facility] Blood, Urine Negative Negative LAB URINALYSIS - AUTOMATED METHOD 11/10/2024 7:31 PM EDT [facility] Bilirubin, Urine Negative Negative LAB URINALYSIS - AUTOMATED METHOD 11/10/2024 7:31 PM EDT [facility] Urobilinogen, Urine 1.0 0.2 to 1.0 mg/dL LAB URINALYSIS - AUTOMATED METHOD 11/10/2024 7:31 PM EDT [facility] Leukocytes, Urine Trace(A) Negative LAB URINALYSIS - AUTOMATED METHOD 11/10/2024 7:31 PM EDT [facility] Nitrite, Urine Positive(A) Negative LAB URINALYSIS - AUTOMATED METHOD 11/10/2024 7:31 PM EDT [facility] RBC, Urine <1 0 to 3 /HPF LAB URINALYSIS - AUTOMATED METHOD 11/10/2024 7:31 PM EDT [facility] WBC, Urine 0 - 5 0 to 5 /HPF LAB URINALYSIS - AUTOMATED METHOD 11/10/2024 7:31 PM EDT [facility] Squamous Epithelial Cells 0 - 2 0 to 5 /HPF LAB URINALYSIS - AUTOMATED METHOD 11/10/2024 7:31 PM EDT [facility] Hyaline Casts 0 - 2 0 to 5 /LPF LAB URINALYSIS - AUTOMATED METHOD 11/10/2024 7:31 PM EDT [facility] Bacteria, Urine Present Negative LAB URINALYSIS - AUTOMATED METHOD 11/10/2024 7:31 PM EDT [facility] Urine Urine specimen obtained by clean catch procedure / Unknown Non-blood Collection / Unknown 11/10/2024 3:01 PM EDT 11/10/2024 3:01 PM EDT us David العراقي MD LAB URINE ORDERABLES Final R esult [facility] [address] [place] [address] * (ABNORMAL) CBC (11/10/2024 3:01 PM EDT) WBC Count 5.59 3.70 - 10.30 10*3/uL LAB HEMATOLOGY METHOD 11/10/2024 7:13 PM EDT [facility] RBC Count 4.36 3.90 - 5.20 10*6/uL LAB HEMATOLOGY METHOD 11/10/2024 7:13 PM EDT [facility] HGB 15.0 11.2 - 15.7 g/dL LAB HEMATOLOGY METHOD 11/10/2024 7:13 PM EDT [facility] HCT 46.6(H) 34.0 - 45.0 % LAB HEMATOLOGY METHOD 11/10/2024 7:13 PM EDT [facility] Platelet Count 167 155 - 369 10*3/uL LAB HEMATOLOGY METHOD 11/10/2024 7:13 PM EDT [facility] MCV 107(H) 79 - 98 fL LAB HEMATOLOGY METHOD 11/10/2024 7:13 PM EDT [facility] MCH 34.4(H) 26.0 - 32.0 pg LAB HEMATOLOGY METHOD 11/10/2024 7:13 PM EDT [facility] MCHC 32.2 30.7 - 35.5 g/dL LAB HEMATOLOGY METHOD 11/10/2024 7:13 PM EDT [facility] RDW 14.0 11.5 - 14.5 % LAB HEMATOLOGY METHOD 11/10/2024 7:13 PM EDT [facility] MPV 10.4 8.8 - 12.5 fL LAB HEMATOLOGY METHOD 11/10/2024 7:13 PM EDT [facility] nRBC 0.0 <=0.0 per 100 WBCs LAB HEMATOLOGY METHOD 11/10/2024 7:13 PM EDT [facility] Blood Venous blood specimen / Unknown Venipuncture / Unknown 11/10/2024 3:01 PM EDT 11/10/2024 3:01 PM EDT us David العراقي MD LAB BLOOD ORDERABLES Final R esult [facility] [address] [place] [address] * (ABNORMAL) Angiotensin converting enzyme (11/10/2024 3:01 PM EDT) ANGIOTENSIN CONVERTING ENZYME <10(L) 16 - 85 U/L 11/13/2024 1:46 PM EDT [facility] Blood Venous blood specimen / Unknown Venipuncture / Unknown 11/10/2024 3:01 PM EDT 11/10/2024 3:01 PM EDT Narrative [facility] ([facility]) - 11/13/2024 1:46 PM EDT Performed By: [employer] [address] [place] [address] Beam Dyer: Elan Mary MD, PhD CLIA Number: [id number] David العراقي MD LAB BLOOD ORDERABLES Final R esult [facility] ([facility] [address] [place] [id number] * (ABNORMAL) PTH, intact (11/10/2024 3:01 PM EDT) PTH Intact Total 112(H) 9 - 77 pg/mL 11/10/2024 7:[address] [facility] Blood Venous blood specimen / Unknown Venipuncture / Unknown 11/10/2024 3:01 PM EDT 11/10/2024 3:01 PM EDT Narrative [facility] - 11/10/2024 7:38 PM EDT Assay performed by immunoassay at the [facility]. Performed on [employer] chemiluminescent immunoassay, tractable to the World Health Organization's first international standard for PTH from the [employer], Code 79/500. Results obtained from different test methods or kits cannot be used interchangeably. David العراقي MD LAB BLOOD ORDERABLES Final R esult [facility] [address] [place] [address] * Uric acid (11/10/2024 2:16 PM EDT) Uric Acid, Plasma 5.1 3.5 - 7.1 mg/dL 11/10/2024 7:26 PM EDT [facility] Blood Venous blood specimen / Unknown Venipuncture / Unknown 11/10/2024 2:16 PM EDT 11/10/2024 2:16 PM EDT us David العراقي MD LAB BLOOD ORDERABLES Final R esult [facility] [address] [place] [address] * Comprehensive metabolic panel (11/10/2024 2:16 PM EDT) Glucose, Plasma 94 74 - 99 mg/dL 11/10/2024 7:26 PM EDT [facility] BUN, Plasma 19 8 - 23 mg/dL 11/10/2024 7:26 PM EDT [facility] Creatinine, Plasma 0.81 0.60 - 1.10 mg/dL 11/10/2024 7:26 PM EDT [facility] BUN/Creatinine Ratio 23 11/10/2024 7:26 PM EDT [facility] Sodium, Plasma 139 136 - 145 mmol/L 11/10/2024 7:26 PM EDT [facility] Potassium, Plasma 4.1 3.6 - 4.9 mmol/L 11/10/2024 7:26 PM EDT [facility] Chloride, Plasma 102 97 - 107 mmol/L 11/10/2024 7:26 PM EDT [facility] CO2, Plasma 25 22 - 29 mmol/L 11/10/2024 7:26 PM EDT [facility] Anion Gap 12 6 - 16 mmol/L 11/10/2024 7:26 PM EDT [facility] Total Calcium, Plasma 10.2 8.9 - 10.2 mg/dL 11/10/2024 7:26 PM EDT [facility] Total Protein 6.8 6.3 - 7.9 g/dL 11/10/2024 7:26 PM EDT [facility] Albumin, Plasma 4.4 3.5 - 5.2 g/dL 11/10/2024 7:26 PM EDT [facility] AST, Plasma 25 10 - 35 U/L 11/10/2024 7:26 PM EDT [facility] ALT, Plasma 13 10 - 35 U/L 11/10/2024 7:26 PM EDT [facility] Alkaline Phosphatase, Plasma 99 46 - 142 U/L 11/10/2024 7:26 PM EDT [facility] Total Bilirubin, Plasma 0.5 0.2 - 1.1 mg/dL 11/10/2024 7:26 PM EDT [facility] eGFRcr 70.4 mL/min/1.7 3m*2 11/10/2024 7:26 PM EDT [facility] Comment:Reported eGFRcr in m L/min/1.73m2 is based the CKD-EPI 2020 equation that does not use a race coefficient. Blood Venous blood specimen / Unknown Venipuncture / Unknown 11/10/2024 2:16 PM EDT 11/10/2024 2:16 PM EDT us David العراقي MD LAB BLOOD ORDERABLES Final R esult [facility] [address] [place] [address] from Last 3 Months Insurance MED[employer]ARE [employer] Care Teams Refractory Technician Relationship Specialty Start Date End Date Madiha Apodaca MD [address] [place] [address] PCP - General 06/18/20 Amanda Blancas LPN VALUE-BASED TRANSFORMATION PROGRAM None Licensed Practical Nurse 11/03/24
--- OUTSIDE RECORDS SUMMARY | 2025-02-03 09:47 | XMS_ITS | Encounter Summary ---
Author Organization Healthcare Address [address] [place] [address] Care Team Providers Care Heavy Equipment Technician Name Role Phone Madiha Apodaca MD Primary Care Provider [phone] Amanda Blancas GEOMETRY PROFESSOR Unavailable Unavailab le Reason for Visit * Reason Comments Med Refill Encounter Details Date Type Department Care Team (Late st Contact Info) Description 09/27/2023 Refill [facility] [address] [place] [address] Flory Guerin MD [address] [address] Social History Tobacco Use Types Packs/Day Years [...] 04/04/2022 How often do you attend chur or evangelical services? More than 4 times per year 04/04/2022 Do you belong to any clubs o r organizations such as episcopal groups, unions, fraternal or athletic groups, or [...] Recorded Patient Health Questionnaire-2 Score 0 08/14/2023 [facility] - Occupational Stress [...] place to sleep or slept in a correction (including now)? No 03/02/2023 Utilities Answer Date [...] encounter Miscellaneous Notes * Telephone Encounter - Flory Guerin MD - 09/29/2023 7:51 AM EDT Discontinued documented in this encounter Plan of Treatment Upcoming Encounters Date Type Department Care Team (Late st Contact Info) Description 04/02/2025 1:30 PM EST Office Visit [facility] [address] [place] [address] Flory Guerin MD [address] [facility] [address] [place] [address] documented as of this encounter Visit Diagnoses Not on filedocumented in this encounter Additional Health Concerns Assessment Noted Time A fall risk assessment has been complete d for the patient 09/27/2023 9:38 AM EDT A Body Mass Index follow-up plan has been documented for the patient 09/28/2023 9:50 PM EDT documented as of this encounter Care Teams Heavy Equipment Technician Relationship Specialty Start Date End Date Madiha Apodaca MD [address] [place] [phone] PCP - General 06/18/20 Amanda Blancas LPN VALUE-BASED TRANSFORMATION PROGRAM None Licensed Practical Nurse 11/03/24 documented as of this encounter
--- OUTSIDE RECORDS SUMMARY | 2025-02-03 09:48 | XMS_ITS | Encounter Summary ---
Author Organization [facility] Address [address] [place] [address] Care Team Providers Care Meal Temperer Name Role Phone Madiha Apodaca MD Primary Care Provider [phone] Amanda Blancas INSIDE SALES RECRUITER Unavailable Unavailab le Amanda Blancas INSIDE SALES RECRUITER Unavailable Unavailab le Reason for Visit * Reason Comments Med Refill Encounter Details Date Type Department Care Team (Late Contact Info) Description 10/26/2021 Refill [facility] [address] [place] [address] Madiha Apodaca MD [address] [place] [address] Social History Tobacco Use Types Packs/Day Years Used Date Smoking Tobacco: Never Smokeless Tobacco: Never PHQ-2 Answer Date Recorded Patient Health Questionnaire-2 Score 0 09/08/2020 Comments Unknown Sex and Gender Information Value Date Recorded Sex Assigned at Not on file Legal Sex Female 6:37 PM EDT Gender Identity Not on file Sexual Orientation Not on file COVID-19 Exposure Response Date Recorded In the last 10 days, have yo u been in contact with someone who was confirmed or suspected to have Coronavirus/COVID-19? No / Unsure 10/03/2021 2:06 PM EDT documented as of this encounter Plan of Treatment Upcoming Encounters Date Type Department Care Team (Late Contact Info) Description 04/02/2025 1:30 PM EST Office Visit [facility] [address] [place] [address] Flory Guerin MD [address] [address] documented as of this encounter Visit Diagnoses Not on filedocumented in this encounter Additional Health Concerns Assessment Noted Time A fall risk assessment has been complete d for the patient 09/19/2021 7:36 AM EDT documented as of this encounter Care Teams Meal Temperer Relationship Specialty Start Date End Date Madiha Apodaca MD [address] [place] [address] PCP - General 06/18/20 Amanda Blancas LPN VALUE-BASED TRANSFORMATION PROGRAM None Licensed Practical Nurse 04/04/22 04/04/22 Amanda Blancas LPN VALUE-BASED TRANSFORMATION PROGRAM None Licensed Practical Nurse 11/03/24 documented as of this encounter
--- OUTSIDE RECORDS SUMMARY | 2025-02-03 09:48 | XMS_ITS | Encounter Summary ---
Author Organization Healthcare Address [address] [place] [address] Care Team Providers Care Diamond Cleaner Name Role Phone Madiha Apodaca MD Primary Care Provider [phone] Amanda Blancas DIRECTOR PAID MEDIA Unavailable Unavailab le Amanda Blancas DIRECTOR PAID MEDIA Unavailable Unavailab le Encounter Details Date Type Department Care Team ([facility] Contact Info) Description 09/19/2021 Outside Procedure External Location [address] [place] [address] Madiha Apodaca MD [address] [place] [address] Social History Tobacco Use Types [...] suspected to have Coronavirus/COVID-19? No / Unsure 09/19/2021 7:31 AM EDT documented as of this encounter Plan of Treatment Upcoming Encounters Date Type Department Care Team ([facility] Contact Info) Description 04/02/2025 1:30 PM EST Office Visit [facility] [address] [place] [address] Flory Guerin MD [address] [place] [address] documented as of this encounter Procedures Procedure Name Priority Date/Time Associated Diagnosis Comments XR LUMBAR SPINE 2 OR 3 VIEWS 09/19/2021 8:30 AM EDT documented in this encounter Results * XR Lumbar Spine 2 or 3 Views (09/19/2021 8:30 AM EDT) Anatomical Region Laterality Modality Spine, L-spine Radiographic Aislinn ging 09/19/2021 8:30 AM EDT Narrative 09/19/2021 10:02 [place] [address] Name: JENELLE REDDY Exam Date: 09/19/2021 : 1935 Age 86 Gender: F Physician: Madiha Apodaca Facility: [facility] Facility HSV: Outpatient Exam: LUMBAR SPINE 2 TO 3V Lumbar spine 3 VIEW HISTORY: Low back pain FINDINGS: No evidence of an acute, displaced fracture or dislocation of the visualized bony architecture. Mild levoscoliosis. Mild multilevel degenerative changes. Vertebral body heights are normal. Moderate facet arthropathy. IMPRESSION: No acute bony abnormality. Dictated By: Cami Hilton Transcribed By: Cami Ferguson Transcribed On: 09/19/2021 9:49 AM Electronically signed by: Cami Hilton 09/19/2021 Thank you for referring REDDYPHILIP DE JESUSLEY to [facility]. Legally authenticated by DOMONIQUE HUERTA 2021-09-19 09:49:48 Procedure Note Provider, Generic [place] - 09/19/2021 [place] [address] Name: JENELLE REDDY Exam Date: 09/19/2021 : 1935 Age 86 Gender: F Physician: Madiha Apodaca Facility: [facility] Facility HSV: Outpatient Exam: LUMBAR SPINE 2 TO 3V Lumbar spine 3 VIEW HISTORY: Low back pain FINDINGS: No evidence of an acute, displaced fracture or dislocation ofthe visualized bony architecture. Mild levoscoliosis. Mild multilevel degenerative changes. Vertebral body heights are normal. Moderate facet arthropathy. IMPRESSION: No acute bony abnormality. Dictated By: Cami Hilton Transcribed By: Cami Ferguson Transcribed On: 09/19/2021 9:49 AM Electronically signed by: Cami Hilton 09/19/2021 Thank you for referring JENELLE REDDY to [facility]. Legally authenticated by DOMONIQUE HUERTA 2021-09-19 09:49:48 Madiha Apodaca MD IMG XR PROCEDURES Final Resul t documented in this encounter Visit Diagnoses Not on filedocumented in this encounter Additional Health Concerns Assessment Noted Time A fall risk assessment has been complete d for the patient 09/19/2021 7:36 AM EDT documented as of this encounter Care Teams Diamond Cleaner Relationship Specialty Start Date End Date Madiha Apodaca MD [address] [place] [address] PCP - General 06/18/20 Amanda Blancas LPN VALUE-BASED TRANSFORMATION PROGRAM None Licensed Practical Nurse 04/04/22 04/04/22 Amanda Blancas LPN VALUE-BASED TRANSFORMATION PROGRAM None Licensed Practical Nurse 11/03/24 documented as of this encounter
--- OUTSIDE RECORDS SUMMARY | 2025-02-03 09:48 | XMS_ITS ---
Laboratory report Created on: January 06, 2025 KENYON REDDY : 1935 Sex: Female Author Organization Unknown PROBLEMS Problems List Code Description N39.0 RESULTS Laboratory Orders Date Order Code Test 2024-03-11 285412 URINE CULTURE, R OUTINE Laboratory Results Date LOINC Test Value Unit Reference Range Interpre tation 2024-03-11 630-4 URINE CULTURE, ROUTINE FINAL A 2024-03-11 630-4 RESULT 1 [facility] A 2024-03-11 [id number] ANTIMICROBIAL SUSCEPTIBILITY [facility]
--- NOTE | 2025-02-03 10:15 | CA_ITS ---
APPROVED REPORT EXAM: Comprehensive 2D, Doppler, and color-flow Echocardiogram Veterinary Epidemiologist: Amelia Hidalgo RT(R) Ht: 5 ft 5 in Wt: 129lbs BSA: 1.64 BP: 165/72 mmHg Indications: chest pain, edema, dyspnea on exertion 2D Dimensions LVEF (Cates's) 59.80 % F: 54 - 74 LV Volume 52.20 mL F: 46 - 106 LV Volume Index 31.8 mL/m2 F: 29 - 61 LA Volume 38.90 mL LA Volume Index 23.72 mL/m2 (M/F) 16-34 EF AP4 58.40 % EF AP2 64.7 % EF BP 59.8 % GL Strain -19.6 % M-Mode Dimensions RVDd 2.82 cm (0.9-2.6) LA Diam 2.37 cm (1.9-4.0) LVDd 3.03 cm (3.5-5.7) LVDs 2.25 cm (3.5-5.7) IVSd 1.14 cm (0.6-1.1) PWd 0.75 cm (0.6-1.1) EF (Teich) 52.40% FS 25.70% EDV (Teich) 35.90 mL ESV (Teich) 17.10 mL LV Diastology E Decel Time 277 (160-240 msec) E/A Ratio 0.6 Aortic Valve NELLA Index 1.92 cm2/m2 AoV Peak Marcel. 158.0 (50-130 cm/s) AO Peak GR. 10.00 mmHg AO Mean GR. 4.90 (<5 mmHg) AO VTI 37.9 (18-25 cm) NELLA (VTI) 3.22 (2.5-4.5 cm2) Mitral Valve MV E Max Marcel. 71.0 (40-130 cm/s) MV A Velocity 119.0 (40-130 cm/s) E/A Ratio 0.60 MV PHT 81.0 ms Tricuspid Valve TR P. Velocity 309.00 cm/s RAP Estimate 10.00 mmHg RVSP 48.20 mmHg Left Ventricle The left ventricle is normal size. Left ventricular systolic function is normal. The left ventricular ejection fraction is within the normal range. There is increased left ventricular wall thickness. There is normal LV segmental wall motion. Transmitral Doppler flow pattern suggests impaired LV relaxation. LVEF is 55%. Right Ventricle The right ventricle is mildly dilated. The right ventricular systolic function is normal. Atria Left atrium is moderately dilated. Right atrium is moderately dilated. There is no color Doppler evidence of interatrial shunt. Aortic Valve The aortic valve is mildly thickened. There is no hemodynamically significant aortic valvular stenosis. Mild aortic regurgitation is present. Mitral Valve The mitral valve is mildly thickened. No evidence of mitral valve stenosis. Mild mitral regurgitation is present. Tricuspid Valve The tricuspid valve leaflets are thin and pliable. Mild tricuspid regurgitation. RVSP is 35-40 mmHg. Pulmonic Valve The pulmonary valve is grossly normal in structure. Trace pulmonic valve regurgitation is present. Great Vessels The aortic root is normal in size. IVC is normal in size and collapses >50% with inspiration. Pericardium There is no pericardial effusion. Other Information Study Quality: Fair Conclusion Normal biventricular systolic function. Mild RV dilation. Biatrial dilation. Mild AI, mild MR, mild TR. Electronically signed by : Meryl Salazar MD 02/10/2025 22:53:02
--- NOTE | 2025-02-03 11:30 | NM_ITS ---
APPROVED REPORT Exam: Nuclear Stress Test Indication: cad, hypertension, diabetes, fm hx, sob Patient Location: Outpatient Stress Tech: Shira Farrell [place] Tech:Amarilis Todd, ARRT, RT (R)(N) Ht: 5 ft 4 in Wt: 121 lbs Bra Size: 34b HR: 65 bpm BP: 191/86 mmHg BSA: 1.58 m2 TID: 1.40 BMI: 20.7 History: cad, hypertension, diabetes, fm hx, sob Procedure: Patient received 0.4 mg of intravenous Lexiscan, resting heart rate 65 bpm, resting blood pressure 191/86 mmHg, with Lexiscan maximum heart rate achieved was 92 bpm which is % of the maximum predicted heart rate and blood pressure was 169/73 mmHg. With Lexiscan, patient denied any complaint of chest pain. Cardiac Stress and Resting SPECT Images: Cardiac Stress and Resting SPECT images were obtained using technetium 99m Myoview 32.3 mCi stress and 10.28 mCi at rest. Resting and stress imaging in supine and prone positions demonstrate no evidence of fixed or reversible perfusion defects. There is increase in transient ischemic dilatation ratio (TID 1.40), which may be suggestive of possible multivessel disease or balanced ischemia. Gated imaging demonstrates normal global LV systolic function. LVEF is calculated at 69%. Conclusion: No evidence of fixed or reversible perfusion defects. There is increase in transient ischemic dilatation ratio (TID 1.40), which may be suggestive of possible multivessel disease or balanced ischemia. Gated imaging demonstrates normal global LV systolic function. LVEF is calculated at 69%. Electronically signed by : Meryl Salazar MD 02/03/2025 18:29:17
[2025-02-03] MEDS: SODIUM CHLORIDE 0.9% 10ML SYR (RAD ONLY) 10 ML IV ×2 (13:14)
[2025-02-03] MEDS: ISOTOPE MYOVIEW (PER STUDY) 1 DOSE IV (13:14)
== END 2025-02-03 23:59 | disposition home or self-care (01) ==
LOC: RT 09:45
PROVIDERS: PCP Family Medicine; Visit Provider Nurse Practitioner
DX: R07.9 Chest pain, unspecified (principal); R06.09 Other forms of dyspnea
CPT/HCPCS: 78452; 93017; 93018; 93306; A9502; J2785